=== PATIENT | male | born 1945 | race Caucasian/White ===

== ENCOUNTER 2018-02-06 17:27 | Inpatient (IN) | payer OTHER, MEDICARE ==
[~2018-02-06] VITALS: Ht 193 cm; Wt 99.1 kg
[~2018-02-06 17:27] MED LIST changes: -ACET-24 PO; -AMLO5TAB3 PO; -CANA1TAB5; -CEFT1INJ57 IV; -CLOP1TAB15 PO; -FERR1TAB23; -MELA1TAB3; -OMEG10007 PO; -PANT40TA PO
[2018-02-06 18:46] VITALS: BP 137/84; PULSE 76; TEMP 36.8; O2SAT 96
[2018-02-06 18:50] VITALS: Ht 193 cm; Wt 99.1 kg
[2018-02-06] MEDS ORDERED: NITROGLYCERIN 0.4 MG SL PER TAB CHARGE UT PRN (19:30)
[2018-02-06] MEDS ORDERED: ZOLPIDEM TARTRATE 5 MG TAB PO PRN (19:30)
[2018-02-06] MEDS ORDERED: VANCOMYCIN CONSULT ACTIVE PRN (19:30)
[2018-02-06] MEDS ORDERED: ALUMINUM/MAGNESIUM SUSP 30 ML UDC PO PRN (19:30)
[2018-02-06] MEDS ORDERED: MAGNESIUM HYDROXIDE SUSP 30 ML UDC PO PRN (19:30)
[2018-02-06] MEDS ORDERED: ACETAMINOPHEN/CODEINE 300/30MG TAB PO PRN (19:30)
[2018-02-06] MEDS ORDERED: ACETAMINOPHEN 325 MG TAB PO PRN (19:30)
[2018-02-06] MEDS ORDERED: ONDANSETRON INJ 2 MG/ML 2 ML VIAL IV PRN (19:30)
[2018-02-06] MEDS ORDERED: MELA1TAB3 (19:48)
[2018-02-06] MEDS ORDERED: CANA1TAB5 (19:48)
[2018-02-06] MEDS ORDERED: OMEG10007 PO (19:48)
[2018-02-06] MEDS ORDERED: AMLO5TAB3 PO (19:48)
[2018-02-06] MEDS ORDERED: FERR1TAB23 (19:48)
[2018-02-06] MEDS ORDERED: PANT40TA PO (19:48)
[2018-02-06] MEDS ORDERED: CLOP1TAB15 PO (19:48)
[2018-02-06 20:15] LABS: HEMOGLOBIN 14.4 g/dL (14.0-18.0); MEAN CELL VOLUME 97.5 fL (80-100); MEAN CORPUSCULAR HEMOGLOBIN 32.7 pg (25-34); MEAN CORPUSCULAR HGB CONC 33.5 g/dl (32-36); MEAN PLATELET VOLUME 10.9 fL (7.4-10.4); PLATELET COUNT 202 K/uL (130-400); RED CELL DISTRIBUTION WIDTH CV 12.9 % (11.5-14.5); RED CELL DISTRIBUTION WIDTH SD 46.3 fL (36.4-46.3); WHITE BLOOD COUNT 10.21 K/uL (4.8-10.8)
[2018-02-06] MEDS ORDERED: VANCOMYCIN IV 2,500 MG in SODIUM CHLORIDE 0.9% 500ML 500 ML IV ONE (20:15)
[2018-02-06] MEDS: SODIUM CHLORIDE 0.9% 1000ML 1,000 ML IV SCH (20:25)
[2018-02-06 20:34] LABS: CALCIUM 9.7 mg/dl (8.5-10.1); CREATININE 0.98 mg/dl (0.60-1.40); POTASSIUM 4.2 mmol/L (3.5-5.1)
[2018-02-06] MEDS ORDERED: NURSING VERBAL MED ORDER ONE ×2 (20:45→21:00)
[2018-02-06] MEDS ORDERED: GEMFIBROZIL 600 MG TAB PO SCH (21:00)
[2018-02-06] MEDS ORDERED: GABAPENTIN 300 MG CAP PO SCH (21:00)
[2018-02-06] MEDS ORDERED: GABAPENTIN 100 MG CAP PO SCH (21:00)
[2018-02-06] MEDS ORDERED: RANITIDINE HCL 150 MG TAB PO SCH (21:00)
--- NOTE | 2018-02-06 21:06 | Pharmacy Progress Note ---
Pharmacy Abx Dose Short Note Date of Service Feb 06, 2018. Assessment & Plan Assessment 73 year old male receiving Vancomycin for treatment of cellulitis with possible osteomyelitis. Day # 1 of antimicrobial therapy. Plan Vancomycin * Loading dose: 2500mg (25mg/kg) * Maintenance dose: 1500mg (15mg/kg) IV q 12 hours * Goal trough level: 15 to 20 mcg/mL * Trough level ordered for: 02/08 @7252 Pharmacy will continue to follow and will adjust dose/frequency as necessary. Thank you.
[2018-02-06] MEDS: ROSUVASTATIN CALCIUM 20 MG TAB PO SCH (21:24)
[2018-02-06] MEDS: DOCUSATE SODIUM 100 MG CAP PO SCH (21:24)
--- NOTE | 2018-02-06 21:29 | History and Physical ---
History & Physical Date Feb 06, 2018. Chief Complaint left lower leg pain and knee pain History of Present Illness The patient is a 73 year old male with complaints of lower leg pain and redness that started ~4 days ago. A few days prior to the pain and redness starting, he had hit his left szymanski off of something which in turn caused an abrasion. He states he cleaned the area with peroxide and tried to keep it dry outside of bathing. He started having pain at the lower leg and anterior aspect of the lower leg. He later started having anterior knee pain. He has a hx of a left TKA done by Dr. Luna in 2010. Past Medical/Surgical History Medical Problems: (1) Cellulitis of knee, left (2) Laceration of leg not thigh (3) Septic prepatellar bursitis of left knee Past medical hx: HTN, hypercholesterolemia, PVD with hx of aneurysm of the left leg, DM Past surgical hx: Left TKA Left leg vascular surgery Allergies Coded Allergies: Niacin (Verified Adverse Reaction, Intermediate, SEVERE FLUSHING AND ELEV.BSG, 08/05/09) Lovastatin (Verified Adverse Reaction, Mild, SEVERE GI, 08/05/09) Simvastatin (Verified Adverse Reaction, Mild, SEVERE GI, 08/05/09) No Known Allergies (Verified , `, 06/15/09) Home Medications Scheduled Amlodipine (Norvasc), 5 MG PO DAILY Aspirin Enteric Coated (Ecotrin Or Generic *), 81 MG PO DAILY Atenolol (Tenormin), 100 MG PO QAM Cholecalciferol (Vitamin D), 2,000 INTER.UNIT PO DAILY Clopidogrel (Plavix), 75 MG PO DAILY Gabapentin (Neurontin), 200 MG PO qaftertoon Gabapentin (Neurontin), 300 MG PO HS Gemfibrozil (Lopid), 600 MG PO BID Glimepiride (Amaryl *), 2 MG PO BID Metformin Hcl (Glucophage *), 500 MG PO BID Multivitamin (Multivitamin), 1 TAB PO DAILY Nitroglycerin (Nitrostat), 0.4 MG UT PRN Pantoprazole (Protonix), 40 MG PO DAILY Rosuvastatin Calcium (Crestor *), 40 MG PO DAILY Valsartan (Diovan *), 160 MG PO DAILY Miscellaneous Medications Canagliflozin-Metformin HCl (Invokamet 50-500 mg) Ferrous Sulfate (Iron) Fish Oil ([place]-3), 1 CAP PO Melatonin-Pyridoxine (Melatonin) Physical Examination Skin: warm/dry, + pertinent finding (left knee: healed anterior knee incision. Anterior midshaft tibia with scabbed abrasion. Mild purulent d/c centrally. Left lower extremity cellulitis and edema. ) Eyes: normal inspection ENT: normal ENT inspection Head: normocephalic, atraumatic Neck: supple, no adenopathy, trachea midline Respiratory/Chest: lungs clear, normal breath sounds, no respiratory distress Cardiovascular: regular rate, rhythm Abdomen / GI: normal bowel sounds, non tender Extremities: + pertinent finding (Left knee: erythema at the lower leg. Erythema at the anterior aspect of the knee at the prepatellar bursa. No fluctuance. Mild to moderate knee effusion without erythema at the joint. No pain of the left knee with PROM or AROM of the knee.) Neurologic/Psych: no motor/sensory deficits, alert, oriented x 3 Diagnosis Left lower leg cellulitis left anterior tibia abrasion Hx of left TKA Plan of Treatment Patient admitted to begin IV Vancomycin. Consult ID Consult medicine for medical management and surgical clearance. The anterior tibial wound was cultured at the [facility] office and the patient brought the culture to the [facility] lab. NPO after midnight for possible I & D of the anterior knee, possible I & D knee with poly exchange.
[2018-02-06 22:58] VITALS: BP 149/80; PULSE 75; TEMP 37.2; O2SAT 94
[2018-02-07] VITALS (7 sets, daily range): BP systolic 117–135; BP diastolic 63–75; PULSE 62–67; TEMP 36.6–37.2; O2SAT 91–99
[2018-02-07] MEDS: VANCOMYCIN IV 1,500 MG in SODIUM CHLORIDE 0.9% 500ML 500 ML IV SCH ×2 (05:39→18:54)
[2018-02-07 07:06] LABS: CREATININE 0.74 mg/dl (0.60-1.40)
[2018-02-07] MEDS ORDERED: GLIMEPIRIDE 2 MG TAB PO SCH (08:30)
[2018-02-07] MEDS ORDERED: METFORMIN HCL 500 MG TAB PO SCH (08:30)
[2018-02-07] MEDS ORDERED: CARBOHYDRATES FOR HYPOGLYCEMIA PO PRN (08:45)
[2018-02-07] MEDS ORDERED: DEXTROSE 50% 50 ML SYR IV PRN (08:45)
[2018-02-07] MEDS ORDERED: GLUCOSE 10 TABS/TUBE PO PRN (08:45)
[2018-02-07] MEDS ORDERED: GLUCOSE 40% GEL 15 GM TUBE PO PRN (08:45)
[2018-02-07] MEDS ORDERED: GLUCAGON FOR INJ 1 MG VIAL IM PRN (08:45)
[2018-02-07] MEDS: VALSARTAN 80 MG TAB PO SCH (08:52)
[2018-02-07] MEDS: DOCUSATE SODIUM 100 MG CAP PO SCH ×2 (08:52→21:12)
[2018-02-07] MEDS: GEMFIBROZIL 600 MG TAB PO SCH ×2 (08:52→16:23)
[2018-02-07] MEDS: MULTIVITAMIN TAB PO SCH (08:53)
[2018-02-07] MEDS: ASCORBIC ACID 500 MG TAB PO SCH (08:53)
[2018-02-07] MEDS: PANTOprazole SOD 40 MG TAB PO SCH (08:53)
[2018-02-07] MEDS: CHOLECALCIFEROL 1000 INTER.UNIT TAB PO SCH (08:54)
--- NOTE | 2018-02-07 08:56 | Orthopedic Progress Note ---
Orthopedic Progress Note Date of Service Feb 07, 2018. Subjective Reports: feeling well, complaints (Left knee pain), Denies: chest pain, SOB, nausea / vomiting, light headedness, calf pain Additional Notes: Pt is sitting in his chair this AM. Continuing to have pain in the anterior portion of the knee. Denies deep knee pain. States that ambulating WBAT makes it feel better. Objective calves soft nontender, N/V intact, A&O x3, toes mobile Left knee with noted erythema. Prepatellar area with swelling/induration. Very painful on palpation of this area. I cannot appreciate a true pocket of fluid but the prepatellar bursa area is swollen and boggy to palpation. Erythema travels distally to the ankle. Denies ankle pain at this time. He has an abrasion/scab in the lower leg where he hit it on the corner of a piece of lumber. ROM of the knee to 95 degrees before he has to stop due to pain in the prepatellar area. No drainage noted. Date Time Temp Pulse Resp B/P (MAP) Pulse Ox O2 Delivery O2 Flow Rate FiO2 02/07/18 07:30 36.7 67 17 132/74 (93) 94 Room Air 02/06/18 23:25 Room Air 02/06/18 22:58 37.2 75 18 149/80 (103) 94 Room Air 02/06/18 18:50 Room Air 02/06/18 18:46 36.8 76 18 137/84 (101) 96 Room Air Laboratory Results 24 Hours: Test 02/06/18 19:54 Hematocrit 43.0 % Hemoglobin 14.4 g/dL Additional Notes: --------- RUN DATE: 02/07/18 [facility] PAGE 1 RUN TIME: 726 Specimen Inquiry PATIENT: ALEN FAGAN LOC: [facility] U # : [id number] AGE/SX: 73/M ROOM: REG : 02/06/[address]: Kraig Hawkins PA- : 1945 BED: DIS : STATUS: REG CLI TLOC: SPEC #: [id number] JE: 02/06/18 STATUS: RES REQ #: [id number] RECD: 02/06/[address]: Kraig Hawkins PA-C SOURCE: DRAIN-DEEP ENTR: 02/06/[address]: Soren Ortega D.O. SPDESC: LEG LL ORDERED: AER/KAIA CULTSMR COMMENTS: SOURCE IS ANTERIOR LEFT TIBIA DRAINAGE Procedure Result Verified Site GRAM STAIN Final 02/07/18 RESULT RARE GRAM POSITIVE COCCI NO WBCs SEEN OR AER/KAIA CULT Results Pending Assessment & Plan Assessment: Septic Prepatellar Bursitis - above noted gram stain from aspiration done in office last night. h/o HTN, hypercholesterolemia, PVD with hx of aneurysm of the left leg, DM h/o aspiration pneumonia on last hospital stay in [place] resulting in sepsis and a 6 week hospital stay Plan: Currently on Vancomycin Plan for OR today for I&D above septic bursitis. Medical Management per [facility] Hospitalists ID consult placed.
[2018-02-07] MEDS ORDERED: ROSUVASTATIN CALCIUM 20 MG TAB PO SCH (09:00)
[2018-02-07] MEDS ORDERED: LIDOCAINE HCL 2% 2 ML VIAL (20MG/ML) ONE (10:21)
[2018-02-07] MEDS ORDERED: PROPOFOL IV EMULSION 10 MG/ML 20 ML VIAL ONE (10:21)
[2018-02-07] MEDS ORDERED: FENTANYL CITRATE INJ 50 MCG/1 ML 2 ML VIAL ONE ×3 (10:21→14:03)
--- NOTE | 2018-02-07 10:35 | INFECT. DISEASE CONSULTATION ---
DATE OF CONSULTATION: 02/07/2018 HISTORY OF PRESENT ILLNESS: This is a 73-year-old gentleman who was admitted on the after he had worsening left lower pain, swelling and erythema. He was outside working on his deck and did suffer a scrape to his left anterior szymanski from lumber a few days prior to admission. He was cleaning this at home with peroxide, but continued to develop worsening erythema and pain. He then noticed he had significantly decreased range of motion and presented to the Emergency Room. He did have fluid aspirated and the Gram stain is growing gram-positive cocci. He was placed on vancomycin and evaluated by orthopedic surgery. He is due to go to the OR later today. He has been afebrile since admission. He is tolerating vancomycin without difficulty. He does not have leukocytosis. He does have a history of a left total knee replacement in 2010. He has had no prior complications. On my examination, he denies any chest pain, cough, shortness of breath, nausea, vomiting, diarrhea or abdominal pain. REVIEW OF SYSTEMS: His remaining review of systems is reviewed and unremarkable. PAST MEDICAL HISTORY: Significant for hypertension, high cholesterol, history of peripheral vascular disease, aneurysm of the left lower extremity and type 2 diabetes. PAST SURGICAL HISTORY: Significant for TKA in 2010, vascular surgery. He also had a hernia repair in 2011, which was complicated by aspiration pneumonia intraoperatively and prolonged hospital stay due to severe sepsis. ALLERGIES: NIACIN, LOVASTATIN, SIMVASTATIN. FAMILY HISTORY: Noncontributory. SOCIAL HISTORY: Noncontributory. MEDICATIONS: Insulin, Protonix, vitamin C, atenolol, vitamin D, multivitamin, Diovan, gemfibrozil, vancomycin, Colace, Crestor, Tylenol, Benadryl, Ambien, Zofran, milk of magnesia. PHYSICAL EXAMINATION: VITAL SIGNS: He is afebrile, pulse 67, respiratory rate 17, blood pressure 132/74, oxygen saturation is 94% on room air. GENERAL: He is awake, alert and oriented x3. He is in no acute distress. HEENT: Mucous membranes are moist. Extraocular muscles are intact. HEART: Regular. LUNGS: Clear bilaterally. ABDOMEN: Soft and nondistended. EXTREMITIES: There is no lower extremity edema. Examination of the left leg reveals significant erythema over the lower extremity with warmth and minimal tenderness. There is no purulent drainage from the wound. LABORATORY STUDIES: CBC on the 9th, white blood cell count 10.2, hemoglobin 14.4. Chemistry panel: Sodium 139, potassium 4.2, chloride 106, bicarb 24, BUN 24, creatinine 0.9. Glucose 114, was 203 yesterday. Aspiration of the knee shows gram-positive cocci. Additional cultures are pending. 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 He will remain on vancomycin pending additional culture data. He likely will need a 6-week course of IV antibiotics post-discharge from the hospital. Thank you for this consultation.
--- NOTE | 2018-02-07 11:03 | Medical Consult ---
Consultation Date of Consultation: Feb 07, 2018. Attending Physician: Ameya Luna D.O. Reason for Consultation: medical management History of Present Illness Mr. Doyle began having pain in his left leg 4 days ago after hitting his szymanski with resulting abrasion. Pain, erythema and edema developed from knee to ankle anteriorly. He did have some chills last night but no fever. He has a medical history of DMII, ID 20 years ago, CABG, aneurysm in his left thigh, and extended ICU stay in [place] with subsequent dialysis for some months after in October of 2016 for aspiration pneumonia following a hernia surgery. He has been discharged from nephrology care at this point. ROS Constitutional: no aches, sweats or fever Respiratory: no sob,cough, sputum, or wheezing Cardiac: no chest pain, palpitations, edema, orthopnea or lightheadedness GI: no abdominal pain, nausea, vomiting, diarrhea or constipation : no dysuria or hesitancy Extremities: see HPI Skin: no rash All other systems reviewed and negative Family History non contributory Social History Smoking Status: Former Smoker (quit in his 40s) Smokeless Tobacco Use: No Alcohol Use: 1-2 drinks per day beer or wine Drug Use: none Marital Status: Housing Status: lives with significant other Occupation Status: retired Allergies Coded Allergies: Niacin (Verified Adverse Reaction, Intermediate, SEVERE FLUSHING AND ELEV.BSG, 08/05/09) Lovastatin (Verified Adverse Reaction, Mild, SEVERE GI, 08/05/09) Simvastatin (Verified Adverse Reaction, Mild, SEVERE GI, 08/05/09) No Known Allergies (Verified , `, 06/15/09) Home Medications Active Reported [place]-3 (Fish Oil) 1 Ea Cap 1 Cap PO Iron (Ferrous Sulfate) 325 Mg Tab Melatonin (Melatonin-Pyridoxine) 1 Tab Tab Protonix (Pantoprazole Sodium) 40 Mg Tab 40 Mg PO DAILY Invokamet 50-500 mg (Canagliflozin-Metformin HCl) 1 Tab Tab Plavix (Clopidogrel Bisulfate) 75 Mg Tab 75 Mg PO DAILY Norvasc (Amlodipine Besylate) 5 Mg Tab 5 Mg PO DAILY Vitamin D (Cholecalciferol) 1,000 Inter.unit Tab 2,000 Inter.unit PO DAILY Neurontin (Gabapentin) 300 Mg Cap 300 Mg PO HS Neurontin (Gabapentin) 100 Mg Cap 200 Mg PO QAFTERTOON Crestor * (Rosuvastatin Calcium) 40 Mg Tab 40 Mg PO DAILY Amaryl * (Glimepiride) 2 Mg Tab 2 Mg PO BID Glucophage * (Metformin HCl) 500 Mg Tab 500 Mg PO BID Multivitamin (Multivitamins) Tab 1 Tab PO DAILY Ecotrin Or Generic * (Aspirin) 81 Mg Ectab 81 Mg PO DAILY Nitrostat (Nitroglycerin) 0.4 Mg Tab 0.4 Mg UT PRN Diovan * (Valsartan) 80 Mg Cap 160 Mg PO DAILY Lopid (Gemfibrozil) 600 Mg Tab 600 Mg PO BID Tenormin (Atenolol) 100 Mg Tab 100 Mg PO QAM Current Inpatient Medications Current Inpatient Medications Medications (Trade) Dose Ordered Sig/Farzana Route Start Time Stop Time Status Last Admin Dose Admin Acetaminophen/ Codeine Phosphate (Tylenol w/ Codeine #3 Tab) `1-2 TABS FOR PAIN `1 TAB... Q4 PRN PO 02/06/18 19:30 03/08/18 19:29 02/06/18 21:23 1 TAB Acetaminophen (Tylenol Tab) 650 mg Q6H PRN PO 02/06/18 19:30 03/08/18 19:29 Diphenhydramine HCl (Benadryl Cap) 25 mg Q8 PRN PO 02/06/18 19:30 03/08/18 19:29 Zolpidem Tartrate (Ambien Tab) 5 mg HSZ PRN PO 02/06/18 19:30 03/08/18 19:29 Ondansetron HCl (Zofran Inj) 4 mg Q6H PRN IV 02/06/18 19:30 03/08/18 19:29 Al Hydroxide/Mg Hydroxide (Maalox Susp) 30 ml Q6H PRN PO 02/06/18 19:30 03/08/18 19:29 Docusate Sodium (coLACE CAP) 100 mg BID PO 02/06/18 21:00 03/08/18 20:59 02/07/18 08:52 100 MG Pantoprazole Sodium (Protonix Tab) 40 mg QAM PO 02/07/18 09:00 02/10/18 09:01 02/07/18 08:53 40 MG Magnesium Hydroxide (Milk Of Magnesia Susp) 30 ml Q6H PRN PO 02/06/18 19:30 03/08/18 19:29 Sodium Chloride 1,000 ml @ 75 mls/hr [id number] IV 02/06/18 20:00 03/08/18 19:59 02/06/18 20:25 75 MLS/HR Vancomycin HCl 1500 mg/Sodium Chloride 530 ml @ 200 mls/hr Q12H IV 02/07/18 06:00 02/16/18 19:59 02/07/18 05:39 200 MLS/HR Vancomycin HCl (Consult) 1 ea UD PRN N/A 02/06/18 19:30 03/08/18 19:29 Ascorbic Acid (Vitamin C Tab) 500 mg DAILY PO 02/07/18 09:00 03/09/18 08:59 02/07/18 08:53 500 MG Atenolol (Tenormin Tab) 100 mg QAM PO 02/07/18 09:00 03/09/18 08:59 02/07/18 08:53 100 MG Cholecalciferol (Vitamin D Tab) 2,000 inter.unit DAILY PO 02/07/18 09:00 03/09/18 08:59 02/07/18 08:54 2,000 INTER.UNIT Glimepiride (Amaryl Tab) 2 mg BIDM PO 02/07/18 08:30 03/09/18 08:29 Future Hold Multivitamins (Multivitamin Tab) 1 tab DAILY PO 02/07/18 09:00 03/09/18 08:59 02/07/18 08:53 1 TAB Nitroglycerin (Nitrostat Tab) 0.4 mg UD PRN UT 02/06/18 19:30 03/08/18 19:29 Valsartan (Diovan Tab) 80 mg DAILY PO 02/07/18 09:00 03/09/18 08:59 02/07/18 08:52 80 MG Gemfibrozil (Lopid Tab) 600 mg BID@0800,1700 PO 02/07/18 08:00 03/09/18 07:59 02/07/18 08:52 600 MG Rosuvastatin Calcium (Crestor Tab) 40 mg HS PO 02/06/18 21:00 03/08/18 20:59 02/06/18 21:24 40 MG Insulin Aspart (novoLOG ASPART) SLIDING SCALE If C... ACHS SC 02/07/18 12:00 03/09/18 11:59 Glucose (Glucose 40% Gel) 15-30 GRAMS 15 GRAMS... UD PRN PO 02/07/18 08:45 03/09/18 08:44 Glucose (Glucose Chew Tab) 4-8 Tablets 4 Tabl... UD PRN PO 02/07/18 08:45 03/09/18 08:44 Dextrose (Dextrose 50% 50ML Syringe) 25-50ML 25ML FOR ... UD PRN IV 02/07/18 08:45 03/09/18 08:44 Glucagon (Glucagon Inj) 1 mg UD PRN IM 02/07/18 08:45 03/09/18 08:44 Carbohydrates (Carbohydrates For Hypoglycemia) 15-30 GRAMS 15 grams if BSG 54-69... UD PRN PO 02/07/18 08:45 03/09/18 08:44 Physical Exam Date Time Temp Pulse Resp B/P (MAP) Pulse Ox O2 Delivery O2 Flow Rate FiO2 02/07/18 08:05 Room Air 02/07/18 07:30 36.7 67 17 132/74 (93) 94 Room Air 02/06/18 23:25 Room Air 02/06/18 22:58 37.2 75 18 149/80 (103) 94 Room Air 02/06/18 18:50 Room Air 02/06/18 18:46 36.8 76 18 137/84 (101) 96 Room Air General: no distress Eyes: normal inspection, PERLL Respiratory: chest non tender, clear to auscultation, normal breath sounds, no respiratory distress, no accessory muscle use Cardiac: regular rate and rhythm, no rub or gallop, no murmur, no edema, no jvd GI/: active bowel sounds, no abd pain or tenderness, soft, non distended Extremities: left knee erythematous, very painful to even light palpation, erythema extending down szymanski Neuro/Psych: alert and oriented x 3, normal mood and affect Skin: normal color, dry, erythema left knee to szymanski with abrasion over szymanski Laboratory Results Last 24 Hours Test 02/06/18 19:54 02/07/18 06:15 02/07/18 07:40 White Blood Count 10.21 K/uL Red Blood Count 4.41 M/uL Hemoglobin 14.4 g/dL Hematocrit 43.0 % Mean Corpuscular Volume 97.5 fL Mean Corpuscular Hemoglobin 32.7 pg Mean Corpuscular Hemoglobin Concent 33.5 g/dl RDW Standard Deviation 46.3 fL RDW Coefficient of Variation 12.9 % Platelet Count 202 K/uL Mean Platelet Volume 10.9 fL Sodium Level 139 mmol/L Potassium Level 4.2 mmol/L Chloride Level 106 mmol/L Carbon Dioxide Level 24 mmol/L Anion Gap 9.0 mmol/L Blood Urea Nitrogen 24 mg/dl Creatinine 0.98 mg/dl 0.74 mg/dl Est Creatinine Clear Calc Drug Dose 83.6 ml/min 110.7 ml/min Estimated GFR () 88.9 106.8 Estimated GFR (Non- 76.7 92.2 BUN/Creatinine Ratio 24.5 Random Glucose 203 mg/dl Calcium Level 9.7 mg/dl Bedside Glucose 114 mg/dl Assessment & Plan Mr. Doyle is a 73 year old man here for septic prepatellar bursitis Septic Prepatellar Bursitis - cbc am, no leukocytosis - ID consulted - will need IV vanco for 6 weeks - plan for I&D in OR today - patient has good exercise tolerance, able to walk up a flight of stairs without difficulty, no history of CHF. He has not had any angina symptoms in a number of years. 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 EKG shows RBBB and chest xray. RCRI is 6.6%. - Bowel regimen, DVT prophylaxis, pain control, PT/OT per primary team DMII - bsgs ac & hs, ss - hold home glimepiride for now CAD, htn - continue atenolol, valsartan, Crestor - prp am [employer] Physician Supervision Note: I discussed with Aneta Foster NP and agree with findings and plan as documented in the note. Any exceptions or clarifications are listed here: None Documented By: Trent Zuniga
--- NOTE | 2018-02-07 11:29 | Progress Note ---
Progress Note Date of Service Feb 07, 2018. Progress Note ID Consult Dictated #[id number] A/P: 1. Infected TKA - gpc on aspiration -Continue vanco for now, follow OR findings, cultures -Will need min 6 weeks IV abx, weekly cbc, cmp, esr -Final abx when additional cultures available -thank you
--- NOTE | 2018-02-07 11:32 | History & Physical Bridge Note ---
H&P Re-Evaluation Bridge Note: I have examined the patient, reviewed the History & Physical and in the interval since the performance of the History & Physical I have noted the following changes of clinical significance: No changes noted
--- NOTE | 2018-02-07 11:41 | DIAGNOSTIC IMAGING REPORT ---
CHEST ONE VIEW PORTABLE CLINICAL HISTORY: preop COMPARISON STUDY: No previous studies for comparison. FINDINGS: The bones soft tissues and hemidiaphragms are normal. The cardiomediastinal silhouette is normal. The lungs are clear. The pulmonary vasculature is normal. IMPRESSION: Negative chest. The above report was generated using voice recognition software. It may contain grammatical, syntax or spelling errors. Electronically signed by: Eliseo Nugent M.D. 02/07/2018 11:40 AM Dictated Date/Time: 02/07/2018 11:39 AM
[2018-02-07] MEDS ORDERED: NURSING VERBAL MED ORDER ONE (11:45)
[2018-02-07] MEDS ORDERED: CEFAZOLIN SOD 2000MG/15 ML IV PUSH ONE (11:48)
[2018-02-07] MEDS ORDERED: BACITRACIN 50000 UNIT VIAL ONE (11:55)
[2018-02-07] MEDS ORDERED: CEFAZOLIN 2000MG IV PUSH 15 ML IV SCH (12:00)
[2018-02-07] MEDS: INSULIN ASPART 100 UNITS/ML 3 ML PEN SC SCH ×3 (12:00→21:00)
[2018-02-07] MEDS ORDERED: SUCCINYLCHOLINE CHLORIDE 20 MG/ML 10 ML VIAL IV ONE (12:17)
[2018-02-07] MEDS ORDERED: EpHEDrine SULFATE INJ 50 MG/ML AMP IV PRN (12:45)
[2018-02-07] MEDS ORDERED: HYDROmorphone INJ 1 MG/ML SYR IV PRN (12:45)
[2018-02-07] MEDS ORDERED: ATROPINE SULFATE 0.1 MG/ML 5ML SYR IV PRN (12:45)
[2018-02-07] MEDS ORDERED: ONDANSETRON INJ 2 MG/ML 2 ML VIAL IV PRN (12:45)
[2018-02-07] MEDS ORDERED: MoRPHine SULFATE 2 MG/ML CARP IV PRN (13:45)
[2018-02-07] MEDS ORDERED: OXYCODONE HCL IR 5 MG TAB (IMMEDIATE RELEASE) PO PRN (13:45)
[2018-02-07] MEDS ORDERED: ONDANSETRON INJ 2 MG/ML 2 ML VIAL ONE (13:54)
--- NOTE | 2018-02-07 14:11 | [facility] Operative Report ---
Operative Report Operative Date Feb 07, 2018. Pre-Operative Diagnosis Left Leg Wound, Septic Pre-Patellar Bursitis Post-Operative Diagnosis same as preop Procedure(s) Performed Left Knee Incision and Drainage, Incision and Drainage Pre-Patellar Bursa Surgeon Dr. Clarence Horton Record Maker Surgeon(s) None Estimated Blood Loss 5ML Findings The left leg wound was clean after removing the scab. No signs of purulent drainage from the left leg wound. The prepatellar bursa was infected but there was no tracking deep to the joint. Specimens Microbiology #2; left knee pre patellar bursa - gram stain, anaerobic, aerobic, routine culture and sensitivity Drains 1 SEVERINO drain Anesthesia Type General Complication(s) none Disposition Recovery Room / PACU Indications Patient is a 73-year-old male who had sustained abrasion to the anterior distal aspect of the left tibia on Saturday. Starting on he started having increasing pain and redness over the region of the prepatellar bursa. He was seen in the office on Saturday and diagnosed with a septic prepatellar bursitis. He did not really have any pain in the knee itself. He is able to range the knee to about 90 or 95 before having any pain and this was located more because of tightness he complained of the anterior aspect of the knee in the region of the prepatellar bursa. He was admitted to the hospital placed on IV antibiotics. He presents for irrigation debridement. Description of Procedure Risks benefits and alternatives of surgery including but not limited to infection DVT pain stiffness need for surgery damage to blood vessels damage to nerves or risks of anesthesia, possible need for polyethylene exchange and irrigation debridement deeply into the knee. Were discussed with the patient and she wished to proceed. Patient was identified in the laterality was confirmed and marked. A well-padded tourniquet was applied and then the limb was prepped and draped in standard manner with ChloraPrep. The limb was exsanguinated and the tourniquet was inflated. The previous incision was intact. There was an abrasion type wound distally over the anterior distal aspect of the tibia measured about 1 cm diameter. I remove the scab that was in this region. There is no purulent material is no drainage from underneath of the scab. There was significant cellulitis tracking up the leg. The prepatellar bursa region was fluctuant and erythematous. I reopened a portion of the anterior incision about 2 cm in length and encountered bloody purulent material. This fluid as well as some tissue from the region was sent for culture. I thoroughly inspected the region both visually as well as with palpation and there is no tracking of the infection deeply into the knee. The region was then debrided a combination of both sharply as well as bluntly debridement with a rongeur and curette as well as a knife blade. This was to the region subcutaneous tissue. Once it was thoroughly debrided I irrigated the region with a total of 6 L of saline with bacitracin. I placed a SEVERINO drain into the prepatellar bursa through a stab incision distally. I then closed the subcutaneous tissue with interrupted 3-0 Monocryl suture and the skin with horizontal mattress 3-0 nylon. Sterile dressings applied and the tourniquet was released. All needle and sponge counts were correct at the end of the procedure patient was transferred to the PACU in stable condition without apparent complication. I attest to the content of the Intraoperative Record and any orders documented therein. Any exceptions are noted below.
[2018-02-07] MEDS: FENTANYL CITRATE INJ 50 MCG/1 ML 2 ML VIAL IV PRN ×4 (14:15→14:39)
--- NOTE | 2018-02-07 15:16 | Anesthesiology Progress Note ---
Anesthesia Post Op Note Date & Time Feb 07, 2018 at 15:15 Vital Signs Pain Intensity: 3 Vital Signs Past 12 Hours Date Time Temp Pulse Resp B/P (MAP) Pulse Ox O2 Delivery O2 Flow Rate FiO2 02/07/18 14:55 36.6 64 17 136/49 93 Nasal Cannula 2 02/07/18 14:45 64 13 141/68 93 Nasal Cannula 2 02/07/18 14:35 66 13 143/61 94 Nasal Cannula 2 02/07/18 14:25 65 12 142/58 98 Oxymask 10 02/07/18 14:15 70 17 141/63 97 Oxymask 10 02/07/18 14:06 36.0 72 12 134/63 99 Oxymask 10 02/07/18 08:05 Room Air 02/07/18 07:30 36.7 67 17 132/74 (93) 94 Room Air Notes Mental Status: alert / awake / arousable, participated in evaluation Pt Amnestic to Procedure: Yes Nausea / Vomiting: adequately controlled Pain: adequately controlled Airway Patency, RR, SpO2: stable & adequate BP & HR: stable & adequate Hydration State: stable & adequate Anesthetic Complications: no major complications apparent
[2018-02-07] MEDS: SODIUM CHLORIDE 0.9% 1000ML 1,000 ML IV SCH (15:22)
[2018-02-07] MEDS: ROSUVASTATIN CALCIUM 20 MG TAB PO SCH (21:13)
[2018-02-08 03:33] VITALS: BP 134/76; PULSE 82; TEMP 37.4; O2SAT 96
[2018-02-08] MEDS: VANCOMYCIN IV 1,500 MG in SODIUM CHLORIDE 0.9% 500ML 500 ML IV SCH ×2 (05:25→17:38)
[2018-02-08 06:07] LABS: HEMATOCRIT 36.2 % (42-52); HEMOGLOBIN 12.2 g/dL (14.0-18.0); MEAN CELL VOLUME 98.6 fL (80-100); MEAN CORPUSCULAR HEMOGLOBIN 33.2 pg (25-34); MEAN CORPUSCULAR HGB CONC 33.7 g/dl (32-36); MEAN PLATELET VOLUME 10.7 fL (7.4-10.4); PLATELET COUNT 148 K/uL (130-400); RED CELL DISTRIBUTION WIDTH SD 47.1 fL (36.4-46.3); WHITE BLOOD COUNT 7.59 K/uL (4.8-10.8)
[2018-02-08 06:37] LABS: CALCIUM 8.7 mg/dl (8.5-10.1); CREATININE 0.85 mg/dl (0.60-1.40); POTASSIUM 4.3 mmol/L (3.5-5.1)
[2018-02-08 07:30] VITALS: BP 138/82; PULSE 66; TEMP 36.7; O2SAT 95
[2018-02-08] MEDS: INSULIN ASPART 100 UNITS/ML 3 ML PEN SC SCH ×4 (08:00→21:00)
--- NOTE | 2018-02-08 08:22 | Orthopedic Progress Note ---
Orthopedic Progress Note Date of Service Feb 08, 2018. Subjective Post OP Day: 1 Reports: feeling well, Denies: chest pain, SOB, nausea / vomiting, light headedness, calf pain Objective calves soft nontender, N/V intact, capillary refill less than 2 sec., dressing C /D/I, A&O x3, toes mobile, hemovac drainage (SEVERINO- 15 CC) Date Time Temp Pulse Resp B/P (MAP) Pulse Ox O2 Delivery O2 Flow Rate FiO2 02/08/18 07:30 36.7 66 22 138/82 (100) 95 Room Air 02/08/18 03:33 37.4 82 18 134/76 (95) 96 Room Air 02/07/18 23:15 Room Air 02/07/18 23:01 37.2 66 18 126/63 (84) 91 Room Air 02/07/18 19:06 37.1 63 18 117/73 (88) 93 Room Air 02/07/18 17:15 37.2 66 18 118/66 (83) 93 Room Air 02/07/18 16:16 36.7 62 16 135/75 (95) 98 Nasal Cannula 2.0 02/07/18 15:57 36.6 62 16 125/64 (84) 94 Nasal Cannula 2.0 02/07/18 15:15 36.9 66 18 134/75 (94) 99 Nasal Cannula 3.0 02/07/18 15:15 Nasal Cannula 3.0 02/07/18 15:15 99 Nasal Cannula 3.0 02/07/18 14:55 36.6 64 17 136/49 93 Nasal Cannula 2 02/07/18 14:45 64 13 141/68 93 Nasal Cannula 2 02/07/18 14:35 66 13 143/61 94 Nasal Cannula 2 02/07/18 14:25 65 12 142/58 98 Oxymask 10 02/07/18 14:15 70 17 141/63 97 Oxymask 10 02/07/18 14:06 36.0 72 12 134/63 99 Oxymask 10 Laboratory Results 24 Hours: Test 02/08/18 05:31 Hematocrit 36.2 % Hemoglobin 12.2 g/dL Assessment & Plan Assessment: Septic Prepatellar Bursitis - above noted gram stain from aspiration done in office last night. 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 WILL FOLLOW. - ID CONSULTED. INFECTION NOT DEEP INTO JOINT. WILL DEFER TO THEM FOR FINAL ABX DECISION.(IV VS PO PENDING C&S) Medical Management per [facility] [place] Hospitalists ID consult placed. PAIN MANAGEMENT PT/OT DC DRESSING/DRAIN IN AM.
--- NOTE | 2018-02-08 08:48 | Progress Note ---
Subjective Date of Service: Feb 08, 2018. Subjective culture with MSSA, OR cultures pending, per ortho no infection found deep, all superficial. afebrile tolerating abx. Objective Vital Signs Date Time Temp Pulse Resp B/P (MAP) Pulse Ox O2 Delivery O2 Flow Rate FiO2 02/08/18 07:30 36.7 66 22 138/82 (100) 95 Room Air 02/08/18 03:33 37.4 82 18 134/76 (95) 96 Room Air 02/07/18 23:15 Room Air 02/07/18 23:01 37.2 66 18 126/63 (84) 91 Room Air 02/07/18 19:06 37.1 63 18 117/73 (88) 93 Room Air 02/07/18 17:15 37.2 66 18 118/66 (83) 93 Room Air 02/07/18 16:16 36.7 62 16 135/75 (95) 98 Nasal Cannula 2.0 02/07/18 15:57 36.6 62 16 125/64 (84) 94 Nasal Cannula 2.0 02/07/18 15:15 36.9 66 18 134/75 (94) 99 Nasal Cannula 3.0 02/07/18 15:15 Nasal Cannula 3.0 02/07/18 15:15 99 Nasal Cannula 3.0 02/07/18 14:55 36.6 64 17 136/49 93 Nasal Cannula 2 02/07/18 14:45 64 13 141/68 93 Nasal Cannula 2 02/07/18 14:35 66 13 143/61 94 Nasal Cannula 2 02/07/18 14:25 65 12 142/58 98 Oxymask 10 02/07/18 14:15 70 17 141/63 97 Oxymask 10 02/07/18 14:06 36.0 72 12 134/63 99 Oxymask 10 Laboratory Results Item Value Date Time Gram Stain - Final Resulted 02/06/18 1630 Drainage-Deep Leg Lower Left Last 24 Hours Test 02/07/18 14:14 02/07/18 16:13 02/07/18 20:08 02/08/18 05:31 Bedside Glucose 81 mg/dl 73 mg/dl 119 mg/dl White Blood Count 7.59 K/uL Red Blood Count 3.67 M/uL Hemoglobin 12.2 g/dL Hematocrit 36.2 % Mean Corpuscular Volume 98.6 fL Mean Corpuscular Hemoglobin 33.2 pg Mean Corpuscular Hemoglobin Concent 33.7 g/dl RDW Standard Deviation 47.1 fL RDW Coefficient of Variation 13.0 % Platelet Count 148 K/uL Mean Platelet Volume 10.7 fL Sodium Level 137 mmol/L Potassium Level 4.3 mmol/L Chloride Level 109 mmol/L Carbon Dioxide Level 22 mmol/L Anion Gap 6.0 mmol/L Blood Urea Nitrogen 16 mg/dl Creatinine 0.85 mg/dl Est Creatinine Clear Calc Drug Dose 96.4 ml/min Estimated GFR () 100.9 Estimated GFR (Non- 87.1 BUN/Creatinine Ratio 18.9 Random Glucose 114 mg/dl Calcium Level 8.7 mg/dl Test 02/08/18 08:01 Bedside Glucose 106 mg/dl Assessment and Plan (1) Cellulitis of knee, left Assessment & Plan: If OR cultures negative, would suggest change abx to keflex 500mg po tid x 21 days. can follow with ID post d/c. If OR cultures also with MSSA will likely require IV abx with rocephin.
[2018-02-08] MEDS: ASCORBIC ACID 500 MG TAB PO SCH (09:02)
[2018-02-08] MEDS: CHOLECALCIFEROL 1000 INTER.UNIT TAB PO SCH (09:02)
[2018-02-08] MEDS: DOCUSATE SODIUM 100 MG CAP PO SCH ×2 (09:02→20:57)
[2018-02-08] MEDS: VALSARTAN 80 MG TAB PO SCH (09:02)
[2018-02-08] MEDS: PANTOprazole SOD 40 MG TAB PO SCH (09:02)
[2018-02-08] MEDS: MULTIVITAMIN TAB PO SCH (09:02)
[2018-02-08] MEDS: GEMFIBROZIL 600 MG TAB PO SCH ×2 (09:03→16:48)
--- NOTE | 2018-02-08 09:46 | Hospitalist Progress Note ---
Hospitalist Progress Note Date of Service Feb 08, 2018. (Aneta Foster ., KIZZY) Subjective Pt evaluation today including: conversation w/ patient, physical exam, chart review, lab review, review of inpatient medication list Voiding: no voiding problems Mr. Saini pain is greatly relieved since surgery. He has no complaints this morning ROS Constitutional: no chills, aches, sweats or fever Respiratory: no sob,cough, sputum, or wheezing Cardiac: no chest pain, palpitations, edema, orthopnea or lightheadedness GI: no abdominal pain, nausea, vomiting, diarrhea or constipation : no dysuria or hesitancy Extremities: no joint pain or weakness Skin: no rash All other systems reviewed and negative (Aneta Foster CRNP) Medications Medications Administered Medications (Trade) Dose Ordered Sig/Farzana Route Start Time Stop Time Status Last Admin Dose Admin Acetaminophen/ Codeine Phosphate (Tylenol w/ Codeine #3 Tab) `1-2 TABS FOR PAIN `1 TAB... Q4 PRN PO 02/06/18 19:30 02/07/18 13:41 DC 02/06/18 21:23 1 TAB Acetaminophen (Tylenol Tab) 650 mg Q6H PRN PO 02/06/18 19:30 03/08/18 19:29 02/07/18 15:31 650 MG Docusate Sodium (coLACE CAP) 100 mg BID PO 02/06/18 21:00 03/08/18 20:59 02/08/18 09:02 100 MG Pantoprazole Sodium (Protonix Tab) 40 mg QAM PO 02/07/18 09:00 02/10/18 09:01 02/08/18 09:02 40 MG Sodium Chloride 1,000 ml @ 75 mls/hr [id number] IV 02/06/18 20:00 03/08/18 19:59 02/07/18 15:22 75 MLS/HR Vancomycin HCl 1500 mg/Sodium Chloride 530 ml @ 200 mls/hr Q12H IV 02/07/18 06:00 02/16/18 19:59 02/08/18 05:25 200 MLS/HR Ascorbic Acid (Vitamin C Tab) 500 mg DAILY PO 02/07/18 09:00 03/09/18 08:59 02/08/18 09:02 500 MG Atenolol (Tenormin Tab) 100 mg QAM PO 02/07/18 09:00 03/09/18 08:59 02/08/18 09:03 100 MG Cholecalciferol (Vitamin D Tab) 2,000 inter.unit DAILY PO 02/07/18 09:00 03/09/18 08:59 02/08/18 09:02 2,000 INTER.UNIT Multivitamins (Multivitamin Tab) 1 tab DAILY PO 02/07/18 09:00 03/09/18 08:59 02/08/18 09:02 1 TAB Valsartan (Diovan Tab) 80 mg DAILY PO 02/07/18 09:00 03/09/18 08:59 02/08/18 09:02 80 MG Vancomycin HCl 2500 mg/Sodium Chloride 550 ml @ 200 mls/hr TODAY@2014 ONCE IV 02/06/18 20:15 02/06/18 22:59 DC 02/06/18 20:26 200 MLS/HR Gemfibrozil (Lopid Tab) 600 mg BID@0800,1700 PO 02/07/18 08:00 03/09/18 07:59 02/08/18 09:03 600 MG Rosuvastatin Calcium (Crestor Tab) 40 mg HS PO 02/06/18 21:00 03/08/18 20:59 02/07/18 21:13 40 MG Cefazolin Sodium (Ancef 2000mg Iv Push) 2,000 mg STK-MED ONCE .ROUTE 02/07/18 11:48 02/07/18 11:49 DC 02/07/18 12:54 2,000 MG Bacitracin (Bacitracin Inj) 100,000 units STK-MED ONCE .ROUTE 02/07/18 11:55 02/07/18 11:56 DC 02/07/18 13:45 100,000 UNITS Fentanyl Citrate (Fentanyl Inj) 25 mcg Q5M PRN IV 02/07/18 12:45 02/07/18 17:45 DC 02/07/18 14:39 25 MCG (Aneta Foster CRNP) Objective Vital Signs Date Time Temp Pulse Resp B/P (MAP) Pulse Ox O2 Delivery O2 Flow Rate FiO2 02/08/18 07:55 Room Air 02/08/18 07:30 36.7 66 22 138/82 (100) 95 Room Air 02/08/18 03:33 37.4 82 18 134/76 (95) 96 Room Air 02/07/18 23:15 Room Air 02/07/18 23:01 37.2 66 18 126/63 (84) 91 Room Air 02/07/18 19:06 37.1 63 18 117/73 (88) 93 Room Air 02/07/18 17:15 37.2 66 18 118/66 (83) 93 Room Air 02/07/18 16:16 36.7 62 16 135/75 (95) 98 Nasal Cannula 2.0 02/07/18 15:57 36.6 62 16 125/64 (84) 94 Nasal Cannula 2.0 02/07/18 15:15 36.9 66 18 134/75 (94) 99 Nasal Cannula 3.0 02/07/18 15:15 Nasal Cannula 3.0 02/07/18 15:15 99 Nasal Cannula 3.0 02/07/18 14:55 36.6 64 17 136/49 93 Nasal Cannula 2 02/07/18 14:45 64 13 141/68 93 Nasal Cannula 2 02/07/18 14:35 66 13 143/61 94 Nasal Cannula 2 02/07/18 14:25 65 12 142/58 98 Oxymask 10 02/07/18 14:15 70 17 141/63 97 Oxymask 10 02/07/18 14:06 36.0 72 12 134/63 99 Oxymask 10 (Aneta Foster CRNP) Physical Exam Notes: General: no distress Eyes: normal inspection, PERLL Respiratory: chest non tender, clear to auscultation, normal breath sounds, no respiratory distress, no accessory muscle use Cardiac: regular rate and rhythm, no rub or gallop, systolic murmur, no edema, no jvd, weak pedal pulses bilaterally GI/: active bowel sounds, no abd pain or tenderness, soft, non distended Extremities: normal range of motion, normal strength, non tender Neuro/Psych: alert and oriented x 3, normal mood and affect Skin: normal color, dry (Aneta Foster CRNP) Laboratory Results Last 24 Hours Test 02/07/18 14:14 02/07/18 16:13 02/07/18 20:08 02/08/18 05:31 Bedside Glucose 81 mg/dl 73 mg/dl 119 mg/dl White Blood Count 7.59 K/uL Red Blood Count 3.67 M/uL Hemoglobin 12.2 g/dL Hematocrit 36.2 % Mean Corpuscular Volume 98.6 fL Mean Corpuscular Hemoglobin 33.2 pg Mean Corpuscular Hemoglobin Concent 33.7 g/dl RDW Standard Deviation 47.1 fL RDW Coefficient of Variation 13.0 % Platelet Count 148 K/uL Mean Platelet Volume 10.7 fL Sodium Level 137 mmol/L Potassium Level 4.3 mmol/L Chloride Level 109 mmol/L Carbon Dioxide Level 22 mmol/L Anion Gap 6.0 mmol/L Blood Urea Nitrogen 16 mg/dl Creatinine 0.85 mg/dl Est Creatinine Clear Calc Drug Dose 96.4 ml/min Estimated GFR () 100.9 Estimated GFR (Non- 87.1 BUN/Creatinine Ratio 18.9 Random Glucose 114 mg/dl Calcium Level 8.7 mg/dl Test 02/08/18 08:01 Bedside Glucose 106 mg/dl (Aneta Foster CRNP) Assessment and Plan Mr. Doyle is a 73 year old man here for septic prepatellar bursitis Septic Prepatellar Bursitis - Hgb 12 from 14, no leukocytosis - ID consulted - will need IV vanco for 6 weeks - s/p I&D in [place] 02/07 - joint aspirate growing staph but infection superficial and not within the joint - Bowel regimen, DVT prophylaxis, pain control, PT/OT per primary team DMII - bsgs ac & hs, ss - hold home glimepiride for now - can restart at discharge CAD, htn - continue atenolol, valsartan, Crestor - creat stable Medicine will sign off for now, please let us know if we can be of further service in the future (Aneta Foster CRNP) EVIDENCE TECHNICIAN Physician Supervision Note: I discussed with Aneta Foster NP and agree with findings and plan as documented in the note. Any exceptions or clarifications are listed here: None Documented By: Trent Zuniga (Trent Zuniga M.D.)
[2018-02-08] MEDS: SODIUM CHLORIDE 0.9% 1000ML 1,000 ML IV SCH ×2 (10:56→11:15)
[2018-02-08 11:40] VITALS: BP 130/72; PULSE 60; TEMP 36.8; O2SAT 95
[2018-02-08 15:20] VITALS: BP 138/78; PULSE 60; TEMP 36.4; O2SAT 96
[2018-02-08] MEDS ORDERED: VANCOMYCIN TROUGH ONE (17:30)
--- NOTE | 2018-02-08 18:50 | Pharmacy Progress Note ---
Pharmacy Abx Dose Short Note Date of Service Feb 08, 2018. Assessment & Plan Trough resulted @ 14.2mcg/mL. Per ID's note, just concerned with cellulitis at this juncture. No mention of osteomyelitis. Will continue with current dose and interval. No further lvls ordered. Renal fxn has remained stable. Pharmacy will continue to follow and will adjust dose/frequency as necessary. Thank you.
[2018-02-08] MEDS: ROSUVASTATIN CALCIUM 20 MG TAB PO SCH (20:57)
[2018-02-08 23:50] VITALS: BP 176/84; PULSE 59; TEMP 36.8; O2SAT 94
[2018-02-09] VITALS (7 sets, daily range): BP systolic 136–187; BP diastolic 70–81; PULSE 56–59; TEMP 36.8–36.9; O2SAT 92–97
[2018-02-09] MEDS: SODIUM CHLORIDE 0.9% 1000ML 1,000 ML IV SCH (00:56)
[2018-02-09] MEDS: VANCOMYCIN IV 1,500 MG in SODIUM CHLORIDE 0.9% 500ML 500 ML IV SCH (05:22)
[2018-02-09 06:06] LABS: HEMATOCRIT 37.3 % (42-52); HEMOGLOBIN 12.4 g/dL (14.0-18.0); MEAN CELL VOLUME 98.7 fL (80-100); MEAN CORPUSCULAR HEMOGLOBIN 32.8 pg (25-34); MEAN CORPUSCULAR HGB CONC 33.2 g/dl (32-36); MEAN PLATELET VOLUME 11.2 fL (7.4-10.4); PLATELET COUNT 172 K/uL (130-400); RED CELL DISTRIBUTION WIDTH CV 12.9 % (11.5-14.5); RED CELL DISTRIBUTION WIDTH SD 46.2 fL (36.4-46.3); WHITE BLOOD COUNT 5.84 K/uL (4.8-10.8)
[2018-02-09 06:39] LABS: CALCIUM 8.6 mg/dl (8.5-10.1); CREATININE 0.79 mg/dl (0.60-1.40); POTASSIUM 3.9 mmol/L (3.5-5.1)
[2018-02-09] MEDS: CHOLECALCIFEROL 1000 INTER.UNIT TAB PO SCH (08:11)
[2018-02-09] MEDS: DOCUSATE SODIUM 100 MG CAP PO SCH ×2 (08:11→20:32)
[2018-02-09] MEDS: VALSARTAN 80 MG TAB PO SCH (08:12)
[2018-02-09] MEDS: MULTIVITAMIN TAB PO SCH (08:12)
[2018-02-09] MEDS: GEMFIBROZIL 600 MG TAB PO SCH ×2 (08:12→16:37)
[2018-02-09] MEDS: PANTOprazole SOD 40 MG TAB PO SCH (08:12)
[2018-02-09] MEDS: ASCORBIC ACID 500 MG TAB PO SCH (08:13)
[2018-02-09] MEDS: INSULIN ASPART 100 UNITS/ML 3 ML PEN SC SCH ×4 (08:17→21:00)
--- NOTE | 2018-02-09 09:06 | Hospitalist Progress Note ---
Hospitalist Progress Note Date of Service Feb 09, 2018. (Aneta Foster .KIZZY) Subjective Pt evaluation today including: conversation w/ patient, physical exam, chart review, lab review, review of studies, review of inpatient medication list Voiding: no voiding problems Mr. Saini blood pressure has been running high however he is asymptomatic, ambulating the halls and tolerating well. ROS Constitutional: no chills, aches, sweats or fever Respiratory: no sob,cough, sputum, or wheezing Cardiac: no chest pain, palpitations, edema, orthopnea or lightheadedness GI: no abdominal pain, nausea, vomiting, diarrhea or constipation : no dysuria or hesitancy Extremities: no joint pain or weakness Skin: no rash All other systems reviewed and negative (Aneta Foster CRNP) Medications Medications Administered Medications (Trade) Dose Ordered Sig/Farzana Route Start Time Stop Time Status Last Admin Dose Admin Acetaminophen/ Codeine Phosphate (Tylenol w/ Codeine #3 Tab) `1-2 TABS FOR PAIN `1 TAB... Q4 PRN PO 02/06/18 19:30 02/07/18 13:41 DC 02/06/18 21:23 1 TAB Acetaminophen (Tylenol Tab) 650 mg Q6H PRN PO 02/06/18 19:30 03/08/18 19:29 02/07/18 15:31 650 MG Docusate Sodium (coLACE CAP) 100 mg BID PO 02/06/18 21:00 03/08/18 20:59 02/09/18 08:11 100 MG Pantoprazole Sodium (Protonix Tab) 40 mg QAM PO 02/07/18 09:00 02/10/18 09:01 02/09/18 08:12 40 MG Magnesium Hydroxide (Milk Of Magnesia Susp) 30 ml Q6H PRN PO 02/06/18 19:30 03/08/18 19:29 02/08/18 19:31 30 ML Sodium Chloride 1,000 ml @ 75 mls/hr [id number] IV 02/06/18 20:00 02/09/18 08:47 DC 02/09/18 00:56 75 MLS/HR Vancomycin HCl 1500 mg/Sodium Chloride 530 ml @ 200 mls/hr Q12H IV 02/07/18 06:00 02/16/18 19:59 8/12/18 05:22 200 MLS/HR Ascorbic Acid (Vitamin C Tab) 500 mg DAILY PO 02/07/18 09:00 03/09/18 08:59 02/09/18 08:13 500 MG Atenolol (Tenormin Tab) 100 mg QAM PO 02/07/18 09:00 03/09/18 08:59 02/09/18 08:13 100 MG Cholecalciferol (Vitamin D Tab) 2,000 inter.unit DAILY PO 02/07/18 09:00 03/09/18 08:59 02/09/18 08:11 2,000 INTER.UNIT Multivitamins (Multivitamin Tab) 1 tab DAILY PO 02/07/18 09:00 03/09/18 08:59 02/09/18 08:12 1 TAB Valsartan (Diovan Tab) 80 mg DAILY PO 02/07/18 09:00 03/09/18 08:59 02/09/18 08:12 80 MG Vancomycin HCl 2500 mg/Sodium Chloride 550 ml @ 200 mls/hr TODAY@2014 ONCE IV 02/06/18 20:15 02/06/18 22:59 DC 02/06/18 20:26 200 MLS/HR Gemfibrozil (Lopid Tab) 600 mg BID@0800,1700 PO 02/07/18 08:00 03/09/18 07:59 02/09/18 08:12 600 MG Rosuvastatin Calcium (Crestor Tab) 40 mg HS PO 02/06/18 21:00 03/08/18 20:59 02/08/18 20:57 40 MG Insulin Aspart (novoLOG ASPART) SLIDING SCALE If C... ACHS SC 02/07/18 12:00 03/09/18 11:59 02/09/18 08:17 1 UNITS Cefazolin Sodium (Ancef 2000mg Iv Push) 2,000 mg STK-MED ONCE .ROUTE 02/07/18 11:48 02/07/18 11:49 DC 02/07/18 12:54 2,000 MG Bacitracin (Bacitracin Inj) 100,000 units STK-MED ONCE .ROUTE 02/07/18 11:55 02/07/18 11:56 DC 02/07/18 13:45 100,000 UNITS Fentanyl Citrate (Fentanyl Inj) 25 mcg Q5M PRN IV 02/07/18 12:45 02/07/18 17:45 DC 02/07/18 14:39 25 MCG (Aneta Foster CRNP) Objective Vital Signs Date Time Temp Pulse Resp B/P (MAP) Pulse Ox O2 Delivery O2 Flow Rate FiO2 02/09/18 08:06 36.9 59 17 163/79 (107) 97 Room Air 02/09/18 05:15 57 169/70 (103) 92 Room Air 02/09/18 00:55 173/71 (105) 02/08/18 23:50 36.8 59 16 176/84 (114) 94 Room Air 02/08/18 19:15 Room Air 02/08/18 15:20 36.4 60 22 138/78 (98) 96 Room Air 02/08/18 15:20 Room Air 02/08/18 11:40 36.8 60 22 130/72 (91) 95 Room Air (Aneta Foster CRNP) Physical Exam Notes: General: no distress Eyes: normal inspection, PERLL Respiratory: chest non tender, clear to auscultation, normal breath sounds, no respiratory distress, no accessory muscle use Cardiac: regular rate and rhythm, no rub or gallop, systolic murmur, no edema, no jvd GI/: active bowel sounds, no abd pain or tenderness, soft, non distended Extremities: normal range of motion, normal strength, non tender Neuro/Psych: alert and oriented x 3, normal mood and affect Skin: normal color, dry (Aneta Foster CRNP) Laboratory Results Last 24 Hours Test 02/08/18 11:57 02/08/18 17:27 02/08/18 17:37 02/08/18 20:38 Bedside Glucose 174 mg/dl 161 mg/dl 147 mg/dl Vancomycin Level Trough 14.2 mcg/ml Test 02/09/18 05:14 02/09/18 08:02 White Blood Count 5.84 K/uL Red Blood Count 3.78 M/uL Hemoglobin 12.4 g/dL Hematocrit 37.3 % Mean Corpuscular Volume 98.7 fL Mean Corpuscular Hemoglobin 32.8 pg Mean Corpuscular Hemoglobin Concent 33.2 g/dl RDW Standard Deviation 46.2 fL RDW Coefficient of Variation 12.9 % Platelet Count 172 K/uL Mean Platelet Volume 11.2 fL Sodium Level 139 mmol/L Potassium Level 3.9 mmol/L Chloride Level 109 mmol/L Carbon Dioxide Level 24 mmol/L Anion Gap 6.0 mmol/L Blood Urea Nitrogen 16 mg/dl Creatinine 0.79 mg/dl Est Creatinine Clear Calc Drug Dose 103.7 ml/min Estimated GFR () 104.0 Estimated GFR (Non- 89.7 BUN/Creatinine Ratio 20.5 Random Glucose 150 mg/dl Calcium Level 8.6 mg/dl Bedside Glucose 162 mg/dl (Aneta Foster CRNP) Assessment and Plan Mr. Doyle is a 73 year old man here for septic prepatellar bursitis Septic Prepatellar Bursitis - Hgb stable, no leukocytosis - ID consulted - per ID, patient will need 2g daily of Rocephin for 4 weeks - s/p I&D in [place] 02/07 - joint aspirate growing staph - Bowel regimen, DVT prophylaxis, pain control, PT/OT per primary team DMII - bsgs ac & hs, ss - hold home glimepiride for now - can restart at discharge CAD, htn - continue atenolol, valsartan, Crestor - restarted amlodipine and discontinued fluids as pressures running high - creat stable (Aneta Foster CRNP) HOME AGENT Physician Supervision Note: I interviewed and examined the patient. Discussed with Aneta Foster HOME AGENT and agree with findings and plan as documented in the note. Any exceptions or clarifications are listed here: None Patient can have PICC line placed for 4 additional weeks of intravenous Rocephin therapy I did consent him to PICC line placement today Documented By: Trent Zuniga (Trent Zuniga M.D.)
[2018-02-09] MEDS: AMLODIPINE BESYLATE 5 MG TAB PO SCH (09:36)
--- NOTE | 2018-02-09 10:11 | Orthopedic Progress Note ---
Orthopedic Progress Note Date of Service Feb 09, 2018. Subjective Post OP Day: 2 Reports: feeling well, Denies: chest pain, SOB, nausea / vomiting, light headedness, calf pain Objective calves soft nontender, N/V intact, capillary refill less than 2 sec., incision C /D/I, A&O x3, toes mobile AREA AROUND INCISION IS MACERATED AND SLOUGHING OFF. INCISION INTACT, NO DRAINAGE. ERYTHEMA NOTED THROUGHOUT THE LOWER EXTREMITY INTO THE ANKLE WITH MODERATE EDEMA. Date Time Temp Pulse Resp B/P (MAP) Pulse Ox O2 Delivery O2 Flow Rate FiO2 02/09/18 09:34 57 158/72 (100) 95 Room Air 02/09/18 08:06 36.9 59 17 163/79 (107) 97 Room Air 02/09/18 08:05 Room Air 02/09/18 05:15 57 169/70 (103) 92 Room Air 02/09/18 00:55 173/71 (105) 02/08/18 23:50 36.8 59 16 176/84 (114) 94 Room Air 02/08/18 19:15 Room Air 02/08/18 15:20 36.4 60 22 138/78 (98) 96 Room Air 02/08/18 15:20 Room Air 02/08/18 11:40 36.8 60 22 130/72 (91) 95 Room Air Laboratory Results 24 Hours: Test 02/09/18 05:14 Hematocrit 37.3 % Hemoglobin 12.4 g/dL Assessment & Plan Assessment: Septic Prepatellar Bursitis - above noted gram stain from aspiration done in office last night. h/o HTN, hypercholesterolemia, PVD with hx of aneurysm of the left leg, DM h/o aspiration pneumonia on last hospital stay in [place] resulting in sepsis and a 6 week hospital stay Plan: Currently on ROCEPHIN - CULTURES- MSSA, RANGEL SENSITIVE. - ID CONSULTED. RECOMMEND IV ROCEPHIN X 4 WEEKS - CM TO ARRANGE HOME IVS Medical Management per [facility] Hospitalists ID consult placed. PAIN MANAGEMENT PT/OT DRESSING/DRAIN DC'D THIS AM. STILL WITH MODERATE EDEMA/ERYTHEMA IN THE DISTAL LLE. RECOMMEND STRICT ELEVATION TODAY. CONSULT WOUND CARE FOR RECOMMENDATIONS
[2018-02-09] MEDS: CEFTRIAXONE SOD INJ 2,000 MG in DEXTROSE 5% 50ML 50 ML IV SCH (10:41)
[2018-02-09] MEDS: ROSUVASTATIN CALCIUM 20 MG TAB PO SCH (20:33)
[2018-02-10 01:13] VITALS: BP 184/75
[2018-02-10 07:10] LABS: HEMATOCRIT 41.7 % (42-52); HEMOGLOBIN 14.2 g/dL (14.0-18.0); MEAN CELL VOLUME 97.7 fL (80-100); MEAN CORPUSCULAR HEMOGLOBIN 33.3 pg (25-34); MEAN CORPUSCULAR HGB CONC 34.1 g/dl (32-36); MEAN PLATELET VOLUME 10.4 fL (7.4-10.4); PLATELET COUNT 233 K/uL (130-400); RED CELL DISTRIBUTION WIDTH CV 12.7 % (11.5-14.5); RED CELL DISTRIBUTION WIDTH SD 45.1 fL (36.4-46.3); WHITE BLOOD COUNT 6.06 K/uL (4.8-10.8)
[2018-02-10 07:16] VITALS: BP 179/75; PULSE 62; TEMP 36.8; O2SAT 97
[2018-02-10 07:41] LABS: CALCIUM 9.5 mg/dl (8.5-10.1); CREATININE 0.91 mg/dl (0.60-1.40); POTASSIUM 4.2 mmol/L (3.5-5.1)
--- NOTE | 2018-02-10 07:43 | Orthopedic Progress Note ---
Orthopedic Progress Note Date of Service Feb 10, 2018. Subjective Post OP Day: 3 Reports: feeling well Objective calves soft nontender, toes mobile Area around incision sloughing, mild serous drainage. Incision intact. Skin macerated. Mild to moderate edema and erythema. Date Time Temp Pulse Resp B/P (MAP) Pulse Ox O2 Delivery O2 Flow Rate FiO2 02/10/18 07:16 36.8 62 18 179/75 (109) 97 Room Air 02/10/18 01:13 184/75 (111) 02/09/18 23:50 94 Room Air 3.0 02/09/18 23:17 36.9 57 18 187/81 (116) 94 Room Air 02/09/18 19:30 Room Air 02/09/18 15:38 36.8 56 16 136/79 (98) 96 Room Air 02/09/18 15:30 Room Air 02/09/18 09:34 57 158/72 (100) 95 Room Air 02/09/18 08:06 36.9 59 17 163/79 (107) 97 Room Air 02/09/18 08:05 Room Air Laboratory Results 24 Hours: Test 02/10/18 06:58 Hematocrit 41.7 % Hemoglobin 14.2 g/dL Assessment & Plan Assessment: Septic Prepatellar Bursitis - POD#3 I&D of septic prepatellar bursitis h/o HTN, hypercholesterolemia, PVD with hx of aneurysm of the left leg, DM h/o aspiration pneumonia on last hospital stay in [place] resulting in sepsis and a 6 week hospital stay Plan: Currently on ROCEPHIN - CULTURES- MSSA, RANGEL SENSITIVE. - ID CONSULTED. RECOMMEND IV ROCEPHIN X 4 WEEKS - CM TO ARRANGE HOME IVS [facility] PAIN MANAGEMENT PT/OT DRESSING/DRAIN DC'D YESTERDAY. STILL WITH MILD TO MODERATE EDEMA/ERYTHEMA IN THE DISTAL LLE. CONTINUE TO ELEVATE EXTREMITY AWAITING WOUND CARE RECOMMENDATIONS
--- NOTE | 2018-02-10 07:48 | Anesthesiology Progress Note ---
Anesthesia Post Op Note Date & Time Feb 10, 2018 at 07:47 Vital Signs Pain Intensity: 1 Vital Signs Past 12 Hours Date Time Temp Pulse Resp B/P (MAP) Pulse Ox O2 Delivery O2 Flow Rate FiO2 02/10/18 07:16 36.8 62 18 179/75 (109) 97 Room Air 02/10/18 01:13 184/75 (111) 02/09/18 23:50 94 Room Air 3.0 02/09/18 23:17 36.9 57 18 187/81 (116) 94 Room Air Notes Mental Status: alert / awake / arousable Pt Amnestic to Procedure: Yes Nausea / Vomiting: adequately controlled Pain: adequately controlled Airway Patency, RR, SpO2: stable & adequate BP & HR: stable & adequate Hydration State: stable & adequate
[2018-02-10] MEDS: GEMFIBROZIL 600 MG TAB PO SCH (08:06)
[2018-02-10] MEDS: INSULIN ASPART 100 UNITS/ML 3 ML PEN SC SCH ×2 (08:56→12:44)
[2018-02-10] MEDS: AMLODIPINE BESYLATE 5 MG TAB PO SCH (08:58)
[2018-02-10] MEDS: CHOLECALCIFEROL 1000 INTER.UNIT TAB PO SCH (08:59)
[2018-02-10] MEDS: DOCUSATE SODIUM 100 MG CAP PO SCH (08:59)
[2018-02-10] MEDS: ASCORBIC ACID 500 MG TAB PO SCH (09:00)
[2018-02-10] MEDS: VALSARTAN 80 MG TAB PO SCH (09:00)
[2018-02-10] MEDS: PANTOprazole SOD 40 MG TAB PO SCH (09:00)
[2018-02-10] MEDS: MULTIVITAMIN TAB PO SCH (09:00)
[2018-02-10] MEDS: CEFTRIAXONE SOD INJ 2,000 MG in DEXTROSE 5% 50ML 50 ML IV SCH (10:22)
--- NOTE | 2018-02-10 10:56 | Progress Note ---
Subjective Date of Service: Feb 10, 2018. Subjective Pt evaluation today including: conversation w/ patient, physical exam, chart review, lab review cultures with MSSA from OR x2. now on rocephin, tolerating well. denies abd pain, no n/v/d. no f/c. no pain in knee. dressing intact. picc placed. for d/c today. all remaining ros reviewed and are negative. Objective Vital Signs Date Time Temp Pulse Resp B/P (MAP) Pulse Ox O2 Delivery O2 Flow Rate FiO2 02/10/18 07:50 Room Air 02/10/18 07:16 36.8 62 18 179/75 (109) 97 Room Air 02/10/18 01:13 184/75 (111) 02/09/18 23:50 94 Room Air 3.0 02/09/18 23:17 36.9 57 18 187/81 (116) 94 Room Air 02/09/18 19:30 Room Air 02/09/18 15:38 36.8 56 16 136/79 (98) 96 Room Air 02/09/18 15:30 Room Air Physical Exam General Appearance: WD/WN, no apparent distress Eyes: normal inspection, EOMI Neck: supple Respiratory/Chest: lungs clear, normal breath sounds, no respiratory distress Cardiovascular: regular rate, rhythm, no edema Abdomen: non tender, soft Extremities: non-tender, no pedal edema Neurologic/Psychiatric: alert, oriented x 3 Skin: normal color Comments: left knee dressing c/d/i, erythema improving. Laboratory Results Item Value Date Time Gram Stain - Final Resulted 02/07/18 1345 Tissue Knee Left Gram Stain - Final Resulted 02/07/18 1330 Joint Fluid/Space (Synovial) Knee Left Gram Stain - Final Resulted 02/07/18 1345 Tissue Knee Left Gram Stain - Final Resulted 02/07/18 1330 Joint Fluid/Space (Synovial) Knee Left Last 24 Hours Test 02/09/18 11:54 02/09/18 17:04 02/09/18 20:40 02/10/18 06:58 Bedside Glucose 274 mg/dl 154 mg/dl 175 mg/dl White Blood Count 6.06 K/uL Red Blood Count 4.27 M/uL Hemoglobin 14.2 g/dL Hematocrit 41.7 % Mean Corpuscular Volume 97.7 fL Mean Corpuscular Hemoglobin 33.3 pg Mean Corpuscular Hemoglobin Concent 34.1 g/dl RDW Standard Deviation 45.1 fL RDW Coefficient of Variation 12.7 % Platelet Count 233 K/uL Mean Platelet Volume 10.4 fL Sodium Level 140 mmol/L Potassium Level 4.2 mmol/L Chloride Level 104 mmol/L Carbon Dioxide Level 30 mmol/L Anion Gap 6.0 mmol/L Blood Urea Nitrogen 19 mg/dl Creatinine 0.91 mg/dl Est Creatinine Clear Calc Drug Dose 90.0 ml/min Estimated GFR () 97.2 Estimated GFR (Non- 83.9 BUN/Creatinine Ratio 20.4 Random Glucose 173 mg/dl Calcium Level 9.5 mg/dl Test 02/10/18 08:15 Bedside Glucose 155 mg/dl Assessment and Plan (1) Cellulitis of knee, left Assessment & Plan: continue Rocephin 2 g daily x 4 weeks. will need weekly cbc , cmp, esr while on therapy. can follow with ID post d/c.
--- NOTE | 2018-02-10 12:05 | Hospitalist Progress Note ---
Hospitalist Progress Note Date of Service Feb 10, 2018. Subjective Pt evaluation today including: conversation w/ patient, conversation w/ family ( at bedside), physical exam, chart review, lab review, review of inpatient medication list Pain: None PO Intake: Tolerating PO diet Voiding: no voiding problems Patient reports feeling well. He denies any LLE pain. He is tolerating a PO diet well, voiding, and moving his bowels. He denies any acute complaints. Pt does verify that he in fact takes valsartan 160 mg daily, not 80. The patient denies fevers, chills, sweats, chest pain, palpitations, claudication, cough, wheezing, shortness of breath, nausea, vomiting, abdominal pain, dysuria, hematuria, urinary retention, paralysis, weakness, numbness and tingling. Additional Comments: See HPI for pertinent positives and negatives. All other systems reviewed and negative. Objective Vital Signs Date Time Temp Pulse Resp B/P (MAP) Pulse Ox O2 Delivery O2 Flow Rate FiO2 02/10/18 07:50 Room Air 02/10/18 07:16 36.8 62 18 179/75 (109) 97 Room Air 02/10/18 01:13 184/75 (111) 02/09/18 23:50 94 Room Air 3.0 02/09/18 23:17 36.9 57 18 187/81 (116) 94 Room Air 02/09/18 19:30 Room Air 02/09/18 15:38 36.8 56 16 136/79 (98) 96 Room Air 02/09/18 15:30 Room Air Physical Exam Notes: General appearance: Well-developed, well-nourished, no apparent distress Head: Normocephalic, atraumatic Eyes: Normal inspection, PERRL, EOMI ENT: Normal ENT inspection, hearing grossly normal, pharynx normal Neck: Supple, no JVD, trachea midline Respiratory/Chest: Lungs clear to auscultation, normal breath sounds, no respiratory distress Cardiovascular: +Systolic murmur. Regular rate & rhythm, no gallop Abdomen/GI: Normal bowel sounds, non-tender, soft Extremities/Musculoskeletal: +LLE wounds covered in optifoam. Slight erythema LLE. 1+ pitting edema LLE. No calf tenderness Neurological/Psych: Alert, normal mood/affect, oriented x 3 Skin: Normal color, warm/dry, no rash Laboratory Results Last 24 Hours Test 02/09/18 17:04 02/09/18 20:40 02/10/18 06:58 02/10/18 08:15 Bedside Glucose 154 mg/dl 175 mg/dl 155 mg/dl White Blood Count 6.06 K/uL Red Blood Count 4.27 M/uL Hemoglobin 14.2 g/dL Hematocrit 41.7 % Mean Corpuscular Volume 97.7 fL Mean Corpuscular Hemoglobin 33.3 pg Mean Corpuscular Hemoglobin Concent 34.1 g/dl RDW Standard Deviation 45.1 fL RDW Coefficient of Variation 12.7 % Platelet Count 233 K/uL Mean Platelet Volume 10.4 fL Sodium Level 140 mmol/L Potassium Level 4.2 mmol/L Chloride Level 104 mmol/L Carbon Dioxide Level 30 mmol/L Anion Gap 6.0 mmol/L Blood Urea Nitrogen 19 mg/dl Creatinine 0.91 mg/dl Est Creatinine Clear Calc Drug Dose 90.0 ml/min Estimated GFR () 97.2 Estimated GFR (Non- 83.9 BUN/Creatinine Ratio 20.4 Random Glucose 173 mg/dl Calcium Level 9.5 mg/dl Assessment and Plan 73 y/o male with a history of CAD, ID, HTN, and DM II who presents with septic prepatellar bursitis. Septic Prepatellar Bursitis--resolving - S/p OR I&D on 02/07, POD #3 - Cultures positive for MSSA - Afebrile, no leukocytosis, no pain - ID consulted, appreciate recs: Rocephin x 4 weeks, will need weekly CBC, CMP , ESR monitoring while on abx - Bowel regimen, DVT prophylaxis, pain control, PT/OT per primary team - Script for Rocephin 2 gm IV qd x 26 more days (received 2 days while inpatient ) and weekly lab monitoring provided CAD, h/o ID, HTN--BPs elevated - BP has been elevated, amlodipine restarted 02/09 - Reviewed home meds, pt supposed to be on valsartan 160 mg but only getting 80 mg here - Valsartan 80 mg PO x1 stat. Repeat BP improved - Continue atenolol, amlodipine, Lopid, and Crestor - Resume ASA and Plavix when ok with surgery DM II--stable, BSGs largely controlled here - Glimepiride and Invokamet on hold - Insulin sliding scale - Check BSGs q ac and qhs Pt. is stable from a medical standpoint, we will sign off. Clear for discharge as per primary team.
[2018-02-10] MEDS ORDERED: VALSARTAN 80 MG TAB PO STA (12:11)
[2018-02-10] MEDS ORDERED: CEFT1INJ57 IV (13:28)
--- NOTE | 2018-02-10 13:45 | Discharge Instructions ---
Discharge Instructions Date of Service Feb 10, 2018. Admission Reason for Admission: Cellulitis - Left Anterior Tibia Discharge Discharge Diagnosis / Problem: Septic Prepatellar Bursitis Left Knee Discharge Goals Goal(s): Decrease discomfort, Improve function, Increase independence Activity Recommendations Activity Limitations: per Instructions/Follow-up section Weightbearing Status: Left weightbearing (as tolerated) . Instructions / Follow-Up Instructions / Follow-Up Keep dressing clean and dry. Daily dressing changes. Follow instructions from wound care on how to take care of the skin blister You can be weightbearing as tolertated on the left lower extremity. You can shower only if you keep a waterproof covering over the knee/dressing. No tub baths. No direct shower pressure on the wound. When the wound remains dry, you will be able to get the wound wet. Call the office if you have increased temperature of 101.5 or greater; increased , redness, swelling, or drainage from the wound. Follow up with Dr Horton this week. Call for an appointment. [phone] Sharpe in 10-14 days. Call for an appointment. [phone] Follow up with your Primary Care Physician for BP and Blood Sugar checks in 7- 10 days. Current Hospital Diet Patient's current hospital diet: Diabetes Type 2 Diet Discharge Diet Recommended Diet: Diabetes Type 2 Diet Procedures Procedures Performed: Left Knee Incision and Drainage, Incision and Drainage Pre-Patellar Bursa Pending Studies Studies pending at discharge: no Medical Emergencies . Who to Call and When: Medical Emergencies: If at any time you feel your situation is an emergency, please call 911 immediately. . Non-Emergent Contact Non-Emergency issues call your: Surgeon Call Non-Emergent contact if: temperature is above 101.5, your pain is not controlled, your pain is worsening, wound has increased drainage, wound has increased redness . "Provider Documentation" section prepared by Jason Valdivia. . [place] Drug Monitoring Program Search Results: patient reviewed within database, no issues identified
[2018-02-10 14:15] VITALS: BP 156/75; PULSE 56
[2018-02-10] MEDS ORDERED: ACET-24 PO ×2 (14:20→14:21)
[2018-02-10 14:44] VITALS: BP 156/75; PULSE 56; TEMP 36.8; O2SAT 97
[2018-02-11] MEDS ORDERED: VALSARTAN 80 MG TAB PO SCH (09:00)
--- NOTE | 2018-02-11 20:16 | DISCHARGE SUMMARY ---
DISCHARGE DIAGNOSIS: Left septic prepatellar bursitis. CONSULTS: Dr. Estela Sharpe; KIZZY Ren; Mp Zuniga MD COMPLICATIONS: None. PROCEDURES: Irrigation and debridement of left septic prepatellar bursitis on 02/07/2018. BRIEF HISTORY: As dictated in the history and physical. HOSPITAL SUMMARY: The patient was admitted on 02/06/2018 with the above-noted prepatellar septic bursitis. He had been started on IV antibiotics and plans are for I and D the following day. On his first hospital day, he was sitting in his chair that morning, continued to have pain in the anterior portion of his knee. He denied any deep knee pain especially with range of motion, stated that ambulating, weightbearing as tolerated makes it feel better. Calves were soft, nontender. Neurovascularly intact. Toes were mobile. His left knee had noted erythema. Prepatellar area had swelling and induration. It is very painful on palpation of this area and although there was no overt fluid pockets that could be appreciated. The bursa was swollen and boggy to palpation. Erythema travels distally to the ankle and denied ankle pain at that time. He had an abrasion scab over the lower leg where he had hit the leg on the piece of a lumber. Previously, range of motion of the knee was 95 degrees before it stopped due to pain in the prepatellar bursa area. No drainage was noted. Bowel sounds were stable. He was afebrile and hemoglobin was 14.4. He was then taken to the operating room and the above-noted washout was performed, which he tolerated well. On his first postoperative day, he was feeling well and had no complaints. Calves were soft and nontender. Neurovascularly intact. Dressings clean, dry, and intact. Toes were mobile. Hemovac drainage was around 15 mL. Vital signs were stable. He was afebrile. Hemoglobin was 12.2. He was continued on vancomycin and plans were for continued vancomycin until final cultures were available to make further decisions through Dr. Sharpe. By the second postoperative day, he continued to feel well. Calves were soft and nontender. Neurovascularly intact. Cap refill is less than 2 seconds. Incision was clean, dry, and intact. Toes were mobile. Area around the incision appeared somewhat macerated and sloughing. Incision was intact. No drainage or erythema noted throughout the lower extremity and to the ankle with moderate edema. Vital signs are stable. He was afebrile. Cultures were showing MSSA pansensitive and plans were for IV Rocephin. He was continuing to feel well and remained medically stable. Wound care was consulted to look at the patient's macerations of the skin for which he was seen by Dr. Gemini Carrera who felt that this was a blister secondary to infection, which was cleaned and some of the blister was removed through gentle cleaning of the area. She discussed how to take care of this wound and confirmed that the patient understood the cleaning directions and an Optifoam was then placed over it. He was otherwise remaining stable. Final decisions on antibiotics were made by Dr. Sharpe. Case management had arranged for the patient to receive the antibiotics by 02/10/2018. He was remaining stable and was likely discharged to home. For further review, please see chart. LAB AND X-RAY DATA: As per chart. DISCHARGE INSTRUCTIONS: The patient was discharged home in satisfactory condition on 02/10/2018. Diet: Diabetic. Activity: Weightbearing as tolerated left lower extremity. Instructions: Keep dressing clean and dry, daily dressing changes. Follow instructions from wound care on how to take care of the skin blister. Weightbearing as tolerated on the left lower extremity. He can shower only with waterproof covering over the knee dressing. No tub bath. No direct shower pressure on the wound. When the wound remains dry, you may get the wound wet. Call the office if you have the increased temperature of 101.5 or greater, increased redness, swelling, or drainage from the wound. Follow up with Dr. Horton this coming week for wound check. Followup with Dr. Sharpe in 10-14 days. The patient to call for appointment. Follow up with your primary care physician for blood pressure and blood sugar checks in 7-10 days. DISCHARGE MEDICATIONS: Acetaminophen 1000 mg p.o. t.i.d. for 10 days, ceftriaxone 2 g IV daily for 14 days. Resume home meds as listed. MTDD
--- NOTE | 2018-02-14 10:50 | EDITING REQUIRED CODING QUERY ---
DEBRIDEMENT DOCUMENTATION To promote full compliance with coding requirements relating to patient care, physician participation is requested in all cases of sound system installer uncertainty. Please assist us with the question(s) below: Please place an X in the parenthesis (x). If other, please document the finding: Type of Debridement: ( ) Excisional Debridement- Cutting away necrotic, devitalized tissue or slough to the level of viable tissue using a sharp instrument (i.e. scalpel, scissors, etc.) ( ) Non Excisional Debridement- The removal of necrotic, devitalized tissue or slough by means of scraping, mechanical brushing, flushing, or washing (i.e. irrigation,whirlpool);minor removal of loose fragments. ( ) Other (please specify): Instrument Used: ( ) Scissors ( ) Scalpel ( ) Curette ( ) Other (please specify): Depth of Debridement: ( ) Skin ( ) Skin and Subcutaneous Tissue ( ) Skin, Subcutaneous Tissue and Muscle ( ) Skin, Subcutaneous Tissue, Muscle and Bone ( ) Other (please specify): Please Specify the Size of Debridement in cm2: Please Specify below regarding Debridement: ( ) Debridement was done for Therapeutic purpose ( ) Debridement was done for both Therapeutic and Diagnostic purposes ( ) Debridement was done for Diagnostic Purpose Thank you Ne Juarez
--- NOTE | 2018-02-14 10:57 | CODING QUERY NO DIAGNOSIS ---
DEBRIDEMENT DOCUMENTATION To promote full compliance with coding requirements relating to patient care, physician participation is requested in all cases of ash worker uncertainty. Please assist us with the question(s) below: Please place an X in the parenthesis (x). If other, please document the finding: Type of Debridement: ( ) Excisional Debridement- Cutting away necrotic, devitalized tissue or slough to the level of viable tissue using a sharp instrument (i.e. scalpel, scissors, etc.) ( ) Non Excisional Debridement- The removal of necrotic, devitalized tissue or slough by means of scraping, mechanical brushing, flushing, or washing (i.e. irrigation,whirlpool);minor removal of loose fragments. ( ) Other (please specify): Instrument Used: ( ) Scissors ( ) Scalpel ( ) Curette ( ) Other (please specify): Depth of Debridement: ( ) Skin ( ) Skin and Subcutaneous Tissue ( ) Skin, Subcutaneous Tissue and Muscle ( ) Skin, Subcutaneous Tissue, Muscle and Bone ( ) Other (please specify): Please Specify the Size of Debridement in cm2: Please Specify below regarding Debridement: ( ) Debridement was done for Therapeutic purpose ( ) Debridement was done for both Therapeutic and Diagnostic purposes ( ) Debridement was done for Diagnostic Purpose Provider Signature: Date: Thank you Ne Dai [facility] Information Management Once completed, please kindly fax back to [phone] For questions please call [phone]
== END 2018-02-10 15:20 | disposition home or self-care (01) | DRG 501 ==
LOC: C.3E 18:28
PROVIDERS: ADMIT Orthopaedic Surgery Sports Medicine; ATTEND Orthopaedic Surgery Sports Medicine
PROC: 0M9 Bursae and Ligaments, Drainage (ICD-10-PCS; principal; 2018-02-07 12:30)
PROC: 0JDP0ZZ Extraction of Left Lower Leg Subcutaneous Tissue and Fascia, Open Approach (ICD-10-PCS; principal; 2018-02-07 12:30)
PROC: 05HC33Z Insertion of Infusion Device into Left Basilic Vein, Percutaneous Approach (ICD-10-PCS; 2018-02-09)
DX: M71.162 Other infective bursitis, left knee (principal); L03.116 Cellulitis of left lower limb; M70.42 Prepatellar bursitis, left knee; B95.61 Methicillin susceptible Staphylococcus aureus infection as the cause of diseases classified elsewhere; I11.9 Hypertensive heart disease without heart failure; E11.51 Type 2 diabetes mellitus with diabetic peripheral angiopathy without gangrene; E78.00 Pure hypercholesterolemia, unspecified; I25.10 Atherosclerotic heart disease of native coronary artery without angina pectoris; Z96.652 Presence of left artificial knee joint; Z79.899 Other long term (current) drug therapy; Z79.84 Long term (current) use of oral hypoglycemic drugs; Z79.82 Long term (current) use of aspirin; Z86.19 Personal history of other infectious and parasitic diseases; Z87.01 Personal history of pneumonia (recurrent); Z87.891 Personal history of nicotine dependence; Z88.8 Allergy status to other drugs, medicaments and biological substances; W22.8XXA Striking against or struck by other objects, initial encounter; Y99.8 Other external cause status

== ENCOUNTER → 2018-02-06 | Outpatient (CLI) | payer OTHER, MEDICARE ==
[~2018-02-06] MED LIST: ACET-24 PO; AMLO5TAB3 PO; AMR2 PO; ASCA500 PO; ASPEC81 PO; ATEN-175 PO; CANA1TAB5; CEFT1INJ57 IV; CHOL100010 PO; CLOP1TAB15 PO; CRS20 PO; DVN80 PO; FERR1TAB23; GABA-112 PO; GABA-113 PO; GEMF600T5 PO; GLC500 PO; MELA1TAB3; MULT-506 PO; NTRGSL/4 UT; OMEG10007 PO; PANT40TA PO
== END | disposition home or self-care (01) ==
LOC: C.LAB 18:36
PROVIDERS: ATTEND Physician Assistant
DX: L03.818 Cellulitis of other sites (principal)

== ENCOUNTER 2019-02-05 13:23 | Inpatient (IN) ==
--- OUTSIDE RECORDS SUMMARY | 2019-02-05 15:28 | External Medical Summary | Continuity of Care Document ---
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 Start: 06-Mar-2018 Refills: 0 5 x 3 ML Pen metFORMIN HCl - 1000 MG Oral Tablet; TAKE 1 TABLET EVERY 12 HOURS DAILY. Start: 05-Jun-2018 Refills: 0 Aspirin EC Adult Low Strength 81 MG Oral Tablet Delayed Release; TAKE 1 TABLET DAILY. Start: 12-Feb-2018 Refills: 0 Atenolol 100 MG Oral Tablet; [facility]KE [address] [facility]. Start: 12-Feb-2018 Refills: 0 Vitamin D (Cholecalciferol) 1000 UNIT Oral Tablet; TAKE 2 TA BLETS DAILY. Start: 12-Feb-2018 Refills: 0 Clopidogrel Bisulfate 75 MG Oral Tablet; TAKE 1 TABLET DAILY . Start: 12-Feb-2018 Refills: 0 30 Tablet Bottle Ferrous Sulfate 325 (65 Fe) MG Oral Tablet Start: 12-Feb-2018 Refills: 0 Gemfibrozil 600 MG Oral Tablet; TAKE 1 TABLET TWICE DAILY. Start: 12-Feb-2018 Refills: 0 Melatonin-Pyridoxine 1-10 MG Oral Tablet Start: 12-Feb-2018 Refills: 0 Multivitamin Adult Oral Tablet; TAKE 1 TABLET DAILY. Start: 12-Feb-2018 Refills: 0 Nitroglycerin 0.4 MG Sublingual Tablet S ublingual; DISSOLVE 1 TABLET UNDER THE TONGUE NEEDED FOR CHEST PAIN. Start: 12-Feb-2018 Refills: 0 Pantoprazole Sodium 40 MG Intravenous So lution Reconstituted; Take 1 tablet daily Start: 12-Feb-2018 Refills: 0 Rosuvastatin Calcium 40 MG Oral Tablet; TAKE 1 TABLET DAILY. Start: 12-Feb-2018 Refills: 0 Olmesartan Medoxomil 40 MG Oral Tablet; TAKE 1 TABLET DAILY. Start: 20-Feb-2018 Refills: 0 amLODIPine-Atorvastatin 5-20 MG Oral Tablet; 10 MG - TAKE DA HAILE Start: 12-Feb-2018 Refills: 0 Procedures Procedures not documented Immunizations Immunizations not documented Social History - Smoking Status Former smoker Interventions Discussion/SummaryAt this time he will be followed off of antibiotics. He will follow-up with infectious diseases on an as-needed basis. Plan of Treatment Planned Observations Planned Goals not documented Results No Known Results Results not documented Encounters Appointment; Estela Sharpe DO 06-Mar-2018 10:45 Encounter Diagnosis: Problem not documented Appointment; Estela Sharpe DO 20-Feb-2018 11:00 Encounter Diagnosis: Problem not documented Appointment; Estela Sharpe DO 05-Jun-2018 11:00 Encounter Diagnosis: Problem not documented
[2019-02-05] MEDS ORDERED: ACETAMINOPHEN 325 MG TAB PO PRN (16:05)
[2019-02-05] MEDS ORDERED: ONDANSETRON INJ 2 MG/ML 2 ML VIAL IV PRN (16:05)
[2019-02-05] MEDS ORDERED: VANCOMYCIN CONSULT ACTIVE PRN (16:05)
[2019-02-05] MEDS ORDERED: VANCOMYCIN HCL 1,000 MG in SODIUM CHLORIDE 0.9% 250 ML IV SCH (16:15)
[2019-02-05 16:56] LABS: Basophils # (auto) 0.02 K/uL (0-0.2); Basophils % (auto) 0.3 %; Eosinophils # (auto) 0.07 K/uL (0-0.5); Hemoglobin 13.2 g/dL (14.0-18.0); Immature Granulocytes # (auto) 0.03 K/uL (0.00-0.02); Immature Granulocytes % (auto) 0.4 %; Lymphocytes # (auto) 0.69 K/uL (1.2-3.4); Lymphocytes % (auto) 10.3 %; Mean Corpuscular Hgb Conc 34.7 g/dL (32-36); Mean Corpuscular Volume 95.5 fL (80-100); Mean Platelet Volume 10.5 fL (7.4-10.4); Monocytes # (auto) 0.62 K/uL (0.11-0.59); Monocytes % (auto) 9.2 %; Neutrophils # (auto) 5.28 K/uL (1.4-6.5); Neutrophils % (auto) 78.8 %; Platelet Count 211 K/uL (130-400); RDW Coefficient of Variation 12.6 % (11.5-14.5); RDW Standard Deviation 43.5 fL (36.4-46.3); Red Blood Count 3.98 M/uL (4.7-6.1); White Blood Count 6.71 K/uL (4.8-10.8)
[2019-02-05] MEDS ORDERED: PIPERACILL/TAZOBAC CONSULT ACTIVE PRN (17:01)
--- NOTE | 2019-02-05 17:01 | History & Physical Report ---
Date of Service February 05, 2019 Assessment & Plan (1) Diabetic ulcer of foot associated with diabetes mellitus due to underlying condition, with fat layer exposed: abrupt onset of left foot ulcer, just opened the past few days at the site of prior 2nd toe amputation, s/p hardware placed in metatarsals for support some chills but no fever, decreased appetite check CBC, obtain wound culture, CT foot with contrast, blood cultures consult Dr. Luna consult Dr. 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 Bautista to assess for vascular supply to foot (4) HTN (hypertension): BP stable at 110/67 continue Valsartan, Atenolol, Norvasc (5) CAD (coronary artery disease): heart attack 23 years ago, never required stent since that time he says that he has never had angina hold aspirin for time being in anticipation of surgery (6) Dyslipidemia: hold on Statin for now History of Present Illness Chief Complaint: I have a wound on my foot Primary Care Provider: Soren Ortega 74 yo male with history of DM type II on insulin, CAD, PVD, neuropathy and HTN presents as a direct admission from Dr. Luna's office with a wound to his left foot. He has a history of a hammer toe repair to the second left toe that did not go well and required an eventual amputation of the left 2nd toe. This was done in [place]. He followed up locally with Dr. Luna. He eventually required another surgery to make foot more stable, hardware placed on dorsal aspect of metatarsals of 1st and 2nd toe. The original wound healed well. He also had a wound to his left szymanski that spread into cellulitis, infected bursa of left knee. He was in his usual state of health when he noticed a wound to the area where the 2nd toe was amputated. The wound quickly progressed over 3 days and opened with purulent drainage. He admits to some chills but no fever. He has a decreased appetite. He did not notice any redness in the left foot or leg. No chest pain, cough or dysnea. No nausea or vomiting or diarrhea. He admits to having some neuropathy in feet, so unsure of how long the wound/ulcer was present prior to it rupturing. He went to see Dr. Luna today in the office and he was sent to hospital for direct admission. Recommended starting IV antibiotics and getting CT foot. Will also get vascular consult because the patient has a complex vascular history in the left leg with PVD but also his reports an aneurysm repair in left thigh/knee region that was at [facility]. Medically the patient has DM, sugars typically well controlled on oral regimen as well as Levemir and Humolog. Has remote h/o CAD with MT 23 years ago, never had a stent. Never has chest pain or angina. No history of COPD. Prior smoker. He reports two years ago that when he had the aneurysm of left femoral artery he was also in septic shock and suffered significant renal failure. He was on hemodialysis for a brief period after the illness but he and his report that his kidneys made a full recovery and he was taken off of HD. His PCP is in [place] and he gets his specialty care with [facility]. Medical history: PVD, CAD, HTN, Dyslipidemia, Neuropathy, DM type II insulin dependent, septic shock, acute renal failure requiring temporary HD, left femoral aneurysm Surgical history: 2nd toe amputation left, left TKA, left fem aneurysm repair Social history: prior smoker, drinks occasionally Family history: father due to complications of alcohol abuse, cirrhosis mother due to DM type II and heart disease brother due to esophageal CA sister living with DM type II Allergies Allergy/AdvReac Type Severity Reaction Status Date / Time No Known Allergies Allergy Unknown ` Verified 06/15/09 16:25 niacin AdvReac Intermediate SEVERE Verified 08/05/09 04:13 FLUSHING AND ELEV.BSG lovastatin AdvReac Mild SEVERE GI Verified 08/05/09 04:13 simvastatin AdvReac Mild SEVERE GI Verified 08/05/09 04:13 Home Medications Home Medications Medication Instructions Recorded Confirmed Type amlodipine 10 mg PO DAILY 02/05/19 02/05/19 History aspirin [Aspir-Low] 81 mg PO DAILY 02/05/19 02/05/19 History atenolol 100 mg PO DAILY 02/05/19 02/05/19 History clopidogrel 75 mg PO DAILY 02/05/19 02/05/19 History gemfibrozil 600 mg PO BID 02/05/19 02/05/19 History hydrochlorothiazide 25 mg PO DAILY 02/05/19 02/05/19 History insulin detemir U-100 [Levemir 50 unit SUBCUT DAILY 02/05/19 02/05/19 History U-100 Insulin] insulin lispro [Humalog KwikPen See Rx Instructions .ROUTE .COMPLEX 02/05/19 02/05/19 History Insulin] metformin 1,000 mg PO BID 02/05/19 02/05/19 History multivitamin 1 tab 02/05/19 History nitroglycerin [Nitrostat] See Rx Instructions .ROUTE .COMPLEX 02/05/19 02/05/19 History olmesartan 40 mg PO DAILY 02/05/19 02/05/19 History pantoprazole 40 mg PO DAILY 02/05/19 02/05/19 History rosuvastatin 40 mg PO DAILY 02/05/19 02/05/19 History Past Med/Surg History Social History Preferred Language: Scottish Communication Ability: Effective Brooch Maker Novelty Required: No Beliefs That Will Affect Care: Mormonism Mormonism Beliefs: Scientologist Current Living Situation: Spouse Feels Safe at Home: Yes Smoking Status: Former smoker Second Hand Exposure: No ; Hx Alcohol Use: Yes Alcohol type: beer Hx Substance Use: No Review of Systems Review of Systems: All systems reviewed & are unremarkable except as noted in HPI & below Physical Exam Constitutional: WD/WN, vitals as above Eyes: PERRL, conjunctivae normal, anicteric sclerae ENMT: external ear and nose normal, oropharynx normal Neck: trachea midline, no thyromegaly Respiratory: normal respiratory effort, lungs clear to auscultation Cardiovascular: RRR, no murmur, no edema Gastrointestinal (Abdomen): normal bowel sounds, soft, nontender, no hepatosplenomegaly Musculoskeletal: no cyanosis or clubbing, extremities motor strength 5/5 Skin: + wound (open wound, clear drainage, surrounding skin, left foot) and + scar (significant scar along left medial thigh and medial knee, left szymanski) Neurologic: PERRL, EOMI, accommodation nl, no face palsy, no dysarthria deep tendon reflexes 2+ bilaterally Motor/Sensory: + sensory deficit (decreased pain and light touch sensation feet bilaterally) Psychiatric: A+Ox3, euthymic affect Lymphatic: no cervical or axillary lymphadenopathy Results & Data Vital Signs (Past 12 Hours) Vital Signs Temp Pulse Resp BP Pulse Ox 02/05/19 15:35 36.7 C 75 18 110/67 96 Laboratory Results Laboratory Results - last 24 hr 02/05/19 02/05/19 02/05/19 16:30 16:43 16:43 WBC 6.71 RBC 3.98 L Hgb 13.2 L Hct 38.0 L MCV 95.5 MCH 33.2 MCHC 34.7 RDW Std Deviation 43.5 RDW Coeff of Martin 12.6 Plt Count 211 MPV 10.5 H Immature Gran % (Auto) 0.4 Neut % (Auto) 78.8 Lymph % (Auto) 10.3 Johnson % (Auto) 9.2 Eos % (Auto) 1.0 Baso % (Auto) 0.3 Immature Gran # (Auto) 0.03 H Neut # (Auto) 5.28 Lymph # (Auto) 0.69 L Johnson # (Auto) 0.62 H Eos # (Auto) 0.07 Baso # (Auto) 0.02 PT INR Sodium 139 Potassium 4.4 Chloride 105 Carbon Dioxide 26 Anion Gap 7.0 BUN 32 H Creatinine 1.20 Est Cr Clr Drug Dosing Not Reportable Est GFR ( Amer) 69.1 Est GFR (Non-Af Amer) 59.6 BUN/Creatinine Ratio 26.4 H Glucose 252 H POC Glucose 268 H Calcium 9.8 Total Bilirubin 0.3 AST 17 ALT 25 Alkaline Phosphatase 67 Total Protein 7.5 Albumin 3.5 Globulin 4.0 Albumin/Globulin Ratio 0.9 02/05/19 02/05/19 16:43 16:43 WBC RBC Hgb Hct MCV MCH MCHC RDW Std Deviation RDW Coeff of Martin Plt Count MPV Immature Gran % (Auto) Neut % (Auto) Lymph % (Auto) Johnson % (Auto) Eos % (Auto) Baso % (Auto) Immature Gran # (Auto) Neut # (Auto) Lymph # (Auto) Johnson # (Auto) Eos # (Auto) Baso # (Auto) PT 10.3 INR 1.0 Sodium Potassium Chloride Carbon Dioxide Anion Gap BUN Creatinine Cancelled Est Cr Clr Drug Dosing Cancelled Est GFR ( Amer) Cancelled Est GFR (Non-Af Amer) Cancelled BUN/Creatinine Ratio Glucose POC Glucose Calcium Total Bilirubin AST ALT Alkaline Phosphatase Total Protein Albumin Globulin Albumin/Globulin Ratio Code Status & VTE Plan Code Status full code VTE Prophylaxis Plan VTE Prophylaxis will be ordered: Yes PG Care Time/CCT Total # of Minutes Spent Total Time Spent with Patient: Total time spent is greater than 50% in coordination of care (as documented) at patient's floor/unit and/or counseling patient:
[2019-02-05 17:06] LABS: Prothrombin Time 10.3 Seconds (9.0-12.0)
[2019-02-05 17:14] LABS: Alanine Aminotransferase 25 U/L (12-78); Albumin Level 3.5 gm/dl (3.4-5.0); Aspartate Aminotransferase 17 U/L (15-37); BUN Creatinine Ratio 26.4 (10-20); Blood Urea Nitrogen 32 mg/dl (7-18); Calcium 9.8 mg/dl (8.5-10.1); Carbon Dioxide 26 mmol/L (21-32); Chloride 105 mmol/L (98-107); Est GFR (African American) 69.1; Est GFR (Non-African American) 59.6; Glucose 252 mg/dl (70-99); Potassium 4.4 mmol/L (3.5-5.1); Sodium 139 mmol/L (136-145)
[2019-02-05 17:17] LABS: Albumin Globulin Ratio 0.9 (0.9-2); Alkaline Phosphatase 67 U/L (45-117); Bilirubin,Total 0.3 mg/dl (0.2-1); Total Protein 7.5 gm/dl (6.4-8.2)
[2019-02-05] MEDS: INSULIN ASPART 100 UNITS/ML 3 ML PEN SC SCH ×2 (17:43→20:28)
[2019-02-05] MEDS: GABAPENTIN 100 MG CAP PO SCH (17:57)
[2019-02-05] MEDS: PATIENT'S HEIGHT AND/OR WEIGHT NEEDED SCH ×2 (17:57→18:12)
[2019-02-05] MEDS ORDERED: PIPERACILLIN/TAZOBACTAM 3.375 GM in DEXTROSE 5% 100 ML IV ONE (18:15)
[2019-02-05] MEDS ORDERED: VANCOMYCIN HCL 2,500 MG in SODIUM CHLORIDE 0.9% 500 ML IV SCH (18:15)
--- NOTE | 2019-02-05 19:44 | Pharmacy Report ---
Pharmacy Abx Initial Consult - Date of Service February 05, 2019 - Pharmacy Dosing Scope Date of Consult: 02/05/19 Consultation requested by: Dr. Newman Pharmacy is consulted to initiate vancomycin and Zosyn IV dosing therapy, order appropriate labs and adjust drug dose/frequency. - Subjective The patient is a 74 year old M admitted on 02/05/19 15:21. - Objective Height: 6 ft 4 in Weight: 99 kg Vital Signs (Past 12hrs): Vital Signs Temp Pulse Pulse Resp BP BP Pulse Ox 02/05/19 19:00 36.8 C 83 18 129/69 95 02/05/19 15:35 36.7 C 75 18 110/67 96 Lab Results (24hrs): Laboratory Tests (24 Hours) 02/05/19 02/05/19 02/05/19 16:43 16:43 16:43 WBC 6.71 Neut # (Auto) 5.28 Creatinine Cancelled 1.20 Est Cr Clr Drug Dosing Cancelled Not Reportable Micro Results: 02/05/19 16:43 Aerobic Blood Culture - Pending Blood Anaerobic Blood Culture - Pending 02/05/19 16:44 Aerobic Blood Culture - Pending Blood Anaerobic Blood Culture - Pending - Assessment & Plan Assessment 74 year old M admitted directly from Dr. Luna's office for a diabetic foot infection, at site of prior 2nd toe amputation. PMH significant for DM and a history of sepsis with resulting KARYN and requiring dialysis 2 years ago. Kidneys had recovered and patient was then taken off of dialysis. Vancomycin and Zosyn are being initiated for the diabetic foot infection. Will need to be cautious due to his history of KARYN and HD and with the nephrotoxic co mbo of vancomycin and Zosyn on board. Plan Vancomycin IV * Estimated PK Parameters: Vd 0.7 L/kg, Randy 0.06 hr-1, t1/2 11.5 hr * Loading dose: 2500 mg (25 mg/kg) * Maintenance dose: 1250 mg IV (12.6 mg/kg) every 12 hours * Goal trough level: 15 to 20 mcg/mL for now until osteo ruled out * Trough level ordered for 02/06/19 prior to the 3rd dose. Note: this will be PRIOR to steady state but want to monitor closely due to above Piperacillin/tazobactam * 3.375 g bolus administered over 30 minutes, then 3.375 g IV extended infusion every 8 hours for CrCl greater than 20 mL/min Pharmacy will continue to follow and will adjust dose/frequency as necessary. Thank you.
[2019-02-05] MEDS ORDERED: IOVERSOL 100ml IV PRN (20:04)
[2019-02-05] MEDS: GABAPENTIN 300 MG CAP PO SCH (20:28)
[2019-02-05] MEDS: INSULIN DETEMIR FLEXPEN/FLEX TOUCH 100 UNITS/ML 3ML SC SCH (20:28)
[2019-02-05] MEDS: HEPARIN SOD 5,000 UNIT/0.5 ML VIAL SQ SCH (20:29)
--- NOTE | 2019-02-05 22:26 | CT Scan Report ---
CT SCAN OF THE LEFT FOOT WITH IV CONTRAST CLINICAL HISTORY: Left foot infection. Clinical concern for abscess. COMPARISON STUDY: Radiographs of the left foot dated 06/16/2009. TECHNIQUE: CT scan of the left foot is performed from the distal tibia and fibula to the base of the foot. Images are reviewed in the axial, sagittal, and coronal planes. IV contrast was administered wi thout complication. Note that interpretation is significantly suboptimal without current plain film c orrelate. A dose lowering technique was utilized adhering to the principles of ALARA. CT DOSE: 177.22 mGy.cm FINDINGS: The skeletal structures are heterogeneously osteopenic. No acute fracture is identified. Th ere is postoperative change from fusion at the first metatarsophalangeal joint. There is incomplete b sallie fusion. Lucency around one of the cortical lag screws suggests loosening (axial image #201). The re has also been osteotomy with postoperative change seen in the third and fourth metatarsal heads. M oderate osteoarthritic change is seen throughout the forefoot and midfoot. There is a cutaneous ulcer ation identified along the plantar aspect of the foot at the first metatarsophalangeal joint. There i s significant superficial and deep soft tissue edema and fluid at this site. No organized/peripherall y enhancing fluid collection is seen to suggest abscess. Milder soft tissue edema is seen throughout the remainder of the forefoot and midfoot. There is nonspecific bony irregularity identified along th e plantar aspect of the fused first metatarsophalangeal joint. Question bony erosion involving the ba se of the first proximal phalanx, best seen on sagittal image #16. No periostitis is identified. Dege nerative spurring is seen along the dorsal last of the tarsal bones. The ankle joint appears maintain ed. There are large dorsal and plantar calcaneal enthesophytes. The Achilles tendon is intact as imag ed. IMPRESSION: 1. There is a cutaneous ulceration identified along the plantar aspect of the foot at the level of th e first metatarsophalangeal joint 2. There is evidence of significant surrounding cellulitis with subcutaneous and deep soft tissue inf lammation and fluid. The appearance is typical for cellulitis. No organized fluid collection is seen to indicate abscess. 3. No acute fracture is seen. 4. There has been fusion of the first metatarsophalangeal joint. Therapeutic hardware appears intact. There is incomplete bony fusion at this joint. 5. There is lucency around a cortical lag screw at the fused first MTP which suggests loosening. 6. There is bony irregularity identified along the plantar aspect of the fused first metatarsophalang eal joint, with questionable bony erosion at the base of the first proximal phalanx. No periostitis i s clearly seen. Acute versus chronic osteomyelitis would be impossible to exclude and clinical correl ation will be essential. 7. Additional findings as above. Dictated: 02/05/2019 8:22 PM Transcribed: 02/05/2019 10:10 PM Beryl [id number] [email or web address] Electronically signed by: Galindo Fenton M.D. 02/05/2019 10:25 PM
[2019-02-05] MEDS: PIPERACILLIN/TAZOBACTAM 3.375 GM in DEXTROSE 5% 100 ML IV SCH (23:25)
--- NOTE | 2019-02-06 00:52 | Ultrasound Report ---
ULTRASOUND BILATERAL LOWER EXTREMITY ARTERIAL; ANKLE-BRACHIAL INDICES CLINICAL HISTORY: Foot ulcer. COMPARISON STUDY: No priors. TECHNIQUE: Real-time, grayscale, and color Doppler sonography of the arteries of the right and left l ower extremity is performed from the inguinal crease to the foot. Ankle-brachial indices are assessed . FINDINGS: Ankle-brachial indices: Right brachial pressure measures 147 and left brachial pressure measures 139. Pressures in the right posterior tibial artery measure 134 for an SAV of 0.91, and pressures in the right dorsalis pedis measure 141 for an SAV of 0.96. Pressures in the left posterior tibial artery me asure 92 for an SAV of 0.63, and pressures in the left dorsalis pedis measure 135 for an SAV of 0.92. Right lower extremity: Moderate atherosclerotic plaque is identified throughout the right lower extre mity arteries. There are triphasic arterial waveforms in the right common femoral artery with velocit ies measuring up to 94 cm/s. The profunda femoris artery is patent with velocities measuring up to 81 cm/s. Triphasic waveforms are seen throughout the right superficial femoral artery with velocities m easuring up to 144 cm/s. Triphasic waveforms are seen in the popliteal artery with velocities measuri ng up to 73 cm/s. There is three-vessel run-off to the foot. Velocities in the posterior tibial arter y measure up to 46 cm/s. Reversal of flow is suggested in the distal posterior tibial artery. Velocit ies in the peroneal artery measure up to 64 cm/s, and velocities in the anterior tibial artery measur e up to 91 cm/s. The dorsalis pedis artery is patent with velocities measuring up to 36 cm/s. Left lower extremity: Moderate atherosclerotic plaque is identified throughout the arteries of the le ft lower extremity. There are triphasic arterial waveforms in the left common femoral artery with aaliyah ocities measuring up to 87 cm/s. The profundus femoris artery is patent with velocities measuring up to 91 cm/s. There are triphasic to biphasic arterial waveforms seen throughout the proximal to mid po rtions of the superficial femoral artery with velocities measuring up to 156 cm/s. There is a bypass graft extending from the distal left superficial femoral artery to the calf. The graft is patent with velocities measuring up to 115 cm/s. The proximal [place] popliteal artery is patent with biphasic fl ow and velocities measuring up to 23 cm/s. The distal [place] popliteal artery appears thrombosed. The posterior tibial artery is patent with velocities measuring up to 159 cm/s. Flow becomes nearly mono phasic in the distal posterior tibial artery. The peroneal artery is patent with velocities measuring up to 99 cm/s. The anterior tibial artery is patent with velocities measuring up to 39 cm/s. Wavefor ms are biphasic. The dorsalis pedis artery is patent with velocities measuring up to 50 cm/s. IMPRESSION: 1. There is no sonographic evidence of high-grade stenosis or focal vessel occlusion throughout the a rteries of the right lower extremity. 2. There is thrombosis of the distal left popliteal artery. 3. A bypass graft from the distal superficial femoral artery to the calf in the left lower extremity is patent. 4. There is three-vessel runoff to both feet. 5. Ankle-brachial indices as above. Dictated: 02/05/2019 10:25 PM Transcribed: 02/05/2019 11:04 PM Beryl [id number] [email or web address] Electronically signed by: Galindo Fenton M.D. 02/06/2019 12:49 AM
[2019-02-06] MEDS: HEPARIN SOD 5,000 UNIT/0.5 ML VIAL SQ SCH ×3 (06:23→21:08)
[2019-02-06] MEDS: VANCOMYCIN HCL 1,250 MG in SODIUM CHLORIDE 0.9% 250 ML IV SCH ×3 (06:23→19:39)
[2019-02-06 07:25] LABS: Creatinine Clr Calc Pharmacy 71.5 ml/min; Est GFR (African American) 74.3; Est GFR (Non-African American) 64.1
[2019-02-06] MEDS: INSULIN ASPART 100 UNITS/ML 3 ML PEN SC SCH ×4 (09:14→20:20)
[2019-02-06] MEDS: PIPERACILLIN/TAZOBACTAM 3.375 GM in DEXTROSE 5% 100 ML IV SCH ×2 (09:20→17:36)
[2019-02-06] MEDS: AMLODIPINE BESYLATE 5 MG TAB PO SCH (09:20)
[2019-02-06] MEDS: ATENOLOL 50 MG TABLET PO SCH (09:21)
[2019-02-06] MEDS: PANTOprazole 40 MG TAB PO SCH (09:21)
[2019-02-06] MEDS: VALSARTAN 80 MG TAB PO SCH (09:21)
--- NOTE | 2019-02-06 09:27 | Hospitalist Progress Note ---
Date of Service February 06, 2019 Assessment & Plan (1) Diabetic ulcer of foot associated with diabetes mellitus due to underlying condition, with fat layer exposed: abrupt onset of left foot ulcer, just opened the past few days at the site of prior 2nd toe amputation, s/p hardware placed in metatarsals for support some chills but no fever, decreased appetite WBC normal, no fever CT foot shows cellulitis and wound, possible bone involvement of 1st metatarsal near hardware awaiting recommendations from Dr. 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, this is per patient fem-pop bypass was done at [facility] he gets routine dopplers every 6 months to assess the bypass arterial doppler shows a thrombosis in popliteal artery but he has intact bypass from superficial femoral to the calf holding aspirin and Plavix in anticipation of surgery (4) HTN (hypertension): BP stable at 128/67 continue Valsartan, Atenolol, Norvasc (5) CAD (coronary artery disease): heart attack 23 years ago, never required stent since that time he says that he has never had angina hold aspirin for time being in anticipation of surgery (6) Dyslipidemia: hold on Statin for now Subjective patient doing well, no fever or chills, no pain in left foot eating well, said that breakfast was delicious had a bowel movement discussed results of CT of the foot, evidence of bone involvement, could indicated osteomyelitis, adjacent to hardware discussed that surgical plan will be up to Dr. Luna, unsure of what he will recommend discussed that he may need to take out hardware with concerns for deep infection patient said that this will be 7th surgery on the left foot he asked at what point do you consider amputating the foot I told him that he could discuss this with Dr. Luna will get CXR and EKG for pre op work up Review of Systems Review of Systems: All systems reviewed & are unremarkable except as noted in HPI & below Physical Exam Constitutional: WD/WN, vitals as above Eyes: PERRL, conjunctivae normal, anicteric sclerae ENMT: external ear and nose normal, oropharynx normal Neck: trachea midline, no thyromegaly Respiratory: normal respiratory effort, lungs clear to auscultation Cardiovascular: RRR, no murmur, no edema Gastrointestinal (Abdomen): normal bowel sounds, soft, nontender, no hep atosplenomegaly Musculoskeletal: no cyanosis or clubbing, extremities motor strength 5/5 Skin: + wound (open wound, clear drainage, surrounding skin, left foot) and + scar (significant scar along left medial thigh and medial knee, left szymanski) Neurologic: PERRL, EOMI, accommodation nl, no face palsy, no dysarthria deep tendon reflexes 2+ bilaterally Motor/Sensory: + sensory deficit (decreased pain and light touch sensation feet bilaterally) Psychiatric: A+Ox3, euthymic affect Lymphatic: no cervical or axillary lymphadenopathy Results & Data Vital Signs (Past 12 Hours) Vital Signs Temp Pulse Resp BP BP Pulse Ox 02/06/19 07:42 37.0 C 62 18 128/67 92 02/05/19 23:10 36.9 C 63 20 113/70 96 Laboratory Results Laboratory Results - last 24 hr 02/05/19 02/05/19 02/05/19 16:30 16:43 16:43 WBC 6.71 RBC 3.98 L Hgb 13.2 L Hct 38.0 L MCV 95.5 MCH 33.2 MCHC 34.7 RDW Std Deviation 43.5 RDW Coeff of Martin 12.6 Plt Count 211 MPV 10.5 H Immature Gran % (Auto) 0.4 Neut % (Auto) 78.8 Lymph % (Auto) 10.3 [place] % (Auto) 9.2 Eos % (Auto) 1.0 Baso % (Auto) 0.3 Immature Gran # (Auto) 0.03 H Neut # (Auto) 5.28 Lymph # (Auto) 0.69 L [place] # (Auto) 0.62 H Eos # (Auto) 0.07 Baso # (Auto) 0.02 PT INR Sodium 139 Potassium 4.4 Chloride 105 Carbon Dioxide 26 Anion Gap 7.0 BUN 32 H Creatinine 1.20 Est Cr Clr Drug Dosing Not Reportable Est GFR ( Amer) 69.1 Est GFR (Non-Af Amer) 59.6 BUN/Creatinine Ratio 26.4 H Glucose 252 H POC Glucose 268 H Calcium 9.8 Total Bilirubin 0.3 AST 17 ALT 25 Alkaline Phosphatase 67 Total Protein 7.5 Albumin 3.5 Globulin 4.0 Albumin/Globulin Ratio 0.9 02/05/19 02/05/19 02/05/19 16:43 16:43 19:51 WBC RBC Hgb Hct MCV MCH MCHC RDW Std Deviation RDW Coeff of Martin Plt Count MPV Immature Gran % (Auto) Neut % (Auto) Lymph % (Auto) [place] % (Auto) Eos % (Auto) Baso % (Auto) Immature Gran # (Auto) Neut # (Auto) Lymph # (Auto) [place] # (Auto) Eos # (Auto) Baso # (Auto) PT 10.3 INR 1.0 Sodium Potassium Chloride Carbon Dioxide Anion Gap BUN Creatinine Cancelled Est Cr Clr Drug Dosing Cancelled Est GFR ( Amer) Cancelled Est GFR (Non-Af Amer) Cancelled BUN/Creatinine Ratio Glucose POC Glucose 233 H Calcium Total Bilirubin AST ALT Alkaline Phosphatase Total Protein Albumin Globulin Albumin/Globulin Ratio 02/06/19 02/06/19 06:05 07:38 WBC RBC Hgb Hct MCV MCH MCHC RDW Std Deviation RDW Coeff of Martin Plt Count MPV Immature Gran % (Auto) Neut % (Auto) Lymph % (Auto) [place] % (Auto) Eos % (Auto) Baso % (Auto) Immature Gran # (Auto) Neut # (Auto) Lymph # (Auto) [place] # (Auto) Eos # (Auto) Baso # (Auto) PT INR Sodium Potassium Chloride Carbon Dioxide Anion Gap BUN Creatinine 1.13 Est Cr Clr Drug Dosing 71.5 Est GFR ( Amer) 74.3 Est GFR (Non-Af Amer) 64.1 BUN/Creatinine Ratio Glucose POC Glucose 112 H Calcium Total Bilirubin AST ALT Alkaline Phosphatase Total Protein Albumin Globulin Albumin/Globulin Ratio Diagnostic Findings CT LEFT FOOT WITH IV CONTRAST IMPRESSION: 1. There is a cutaneous ulceration identified along the plantar aspect of the foot at the level of the first metatarsophalangeal joint 2. There is evidence of significant surrounding cellulitis with subcutaneous and deep soft tissue inflammation and fluid. The appearance is typical for cellulitis. No organized fluid collection is seen to indicate abscess. 3. No acute fracture is seen. 4. There has been fusion of the first metatarsophalangeal joint. Therapeutic hardware appears intact. There is incomplete bony fusion at this joint. 5. There is lucency around a cortical lag screw at the fused first MTP which suggests loosening. 6. There is bony irregularity identified along the plantar aspect of the fused first metatarsophalangeal joint, with questionable bony erosion at the base of the first proximal phalanx. No periostitis is clearly seen. Acute versus chronic osteomyelitis would be impossible to exclude and clinical correlation will be essential. 7. Additional findings as above. ARTERIAL DOPPLER LOWER EXTREMITIES IMPRESSION: 1. There is no sonographic evidence of high-grade stenosis or focal vessel occlusion throughout the arteries of the right lower extremity. 2. There is thrombosis of the distal left popliteal artery. 3. A bypass graft from the distal superficial femoral artery to the calf in the left lower extremity is patent. 4. There is three-vessel runoff to both feet. 5. Ankle-brachial indices as above. Medications Administered Current Inpatient Medications Acetaminophen (Tylenol) 650 mg PO Q4H PRN PRN Reason: pain/fever Stop: 03/07/19 16:04 Amlodipine Besylate (Norvasc) 5 mg PO DAILY [facility] Stop: 03/08/19 08:59 Atenolol (Tenormin) 100 mg PO QAM [facility] Stop: 03/08/19 08:59 Gabapentin (Neurontin) 200 mg PO DAILY@1400 [facility] Stop: 03/07/19 17:14 Last Admin: 02/05/19 17:57 Dose: Not Given Documented by: Gabapentin (Neurontin) 300 mg PO HS ALVARO Stop: 03/07/19 20:59 Last Admin: 02/05/19 20:28 Dose: Not Given Documented by: Heparin Sodium (Porcine) (Heparin Sodium (Porcine)) 5,000 units SQ Q8 [facility] Stop: 03/07/19 21:59 Last Admin: 02/06/19 06:23 Dose: 5,000 units Documented by: Piperacillin Sod/Tazobactam (Sod 3.375 gm/ Dextrose) 115 mls @ 28.75 mls/hr IV Q8H [facility]; Protocol Stop: 02/16/19 00:00 Last Infusion: 02/06/19 03:25 Dose: Infused Documented by: Vancomycin HCl 1,250 mg/ (Sodium Chloride) 275 mls @ 125 mls/hr IV Q12H ALVARO Stop: 02/15/19 17:59 Last Infusion: 02/06/19 09:13 Dose: Infused Documented by: Insulin Aspart (Novolog Flexpen) 0 units SC ACHS ALVARO Stop: 03/07/19 20:59 Last Admin: 02/05/19 20:28 Dose: 9 units Documented by: Insulin Detemir (Levemir Flextouch) 50 units SC HS ALVARO Stop: 03/07/19 20:59 Last Admin: 02/05/19 20:28 Dose: 50 units Documented by: Ioversol (Optiray 320 100ml) 94 ml IV ONCE PRN PRN Reason: Interaction Checking Stop: 02/09/19 20:03 Last Admin: 02/05/19 20:05 Dose: 94 ml Documented by: Miscellaneous Information (Consult) 1 ea N/A UD PRN PRN Reason: Consult Stop: 03/07/19 16:04 Miscellaneous Information (Consult) 1 ea N/A UD PRN PRN Reason: Consult Stop: 03/07/19 17:00 Ondansetron HCl (Zofran) 4 mg IV Q6H PRN PRN Reason: Nausea Stop: 03/07/19 16:04 Pantoprazole Sodium (Protonix) 40 mg PO DAILY ALVARO Stop: 03/08/19 08:59 Valsartan (Diovan) 160 mg PO DAILY [facility] Stop: 03/08/19 08:59 PG Care Time/CCT Total # of Minutes Spent Total Time Spent with Patient: Total time spent is greater than 50% in coordination of care (as documented) at patient's floor/unit and/or counseling patient:
--- NOTE | 2019-02-06 10:23 | XRay Report ---
XR chest 2V routine HISTORY: 74 years-old Male Pre op preoperative exam. No acute chest complaints COMPARISON: Chest radiograph 02/07/2018 and 05/07/2011. TECHNIQUE: PA and lateral views of the chest FINDINGS: Cardiomediastinal and hilar silhouettes are unchanged. Mild tortuosity about the descending thoracic aorta. No pneumothorax, pleural effusion, focal airspace consolidation or overt pulmonary edema. Dege nerative changes are noted about the shoulders and spine. 60% anterior endplate compression deformity of a lower thoracic segment, likely T12 is new from 2010. Healed remote bilateral rib fractures. IMPRESSION: No acute cardiopulmonary abnormality. The above report was generated using voice recognition software. It may contain grammatical, syntax o r spelling errors. Electronically signed by: Tr Zavala M.D. 02/06/2019 10:22 AM
--- NOTE | 2019-02-06 11:45 | Consultation ---
Date of Consultation February 06, 2019 Assessment & Plan (1) History of femoropopliteal bypass: Pt with hx of LLE fem-pop vein BPG for pop art aneurysm repair at [facility] by Dr Zazueta. BPG appears patent with good runoff. No indications for vascular surgical intervention at this time. Recommend orthopedics proceed with planned surgery. Patient was seen, examined, and chart reviewed. Agree with exam and treatment plan of the Vascular PA. 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 Pt states he underwent LLE pop aneurysm repair with BPG using vein at [facility] by Dr Zazueta about 2 years ago. His L foot had hammer toe surgery in [place] that didn't heal correctly, and pt requested appt with Dr Luna, where he has been following for his L foot since. Pt states he had a sunflower seed in his shoe one day last week that developed into his current wound. Made an appt with Dr Luna and was sent here d/t infection. Does have hardware in L foot per pt. Pt denies significant pain or fever at home. Denies nausea/vomiting. Denies PACHECO, chills, chest pain, abd pain, rest pain, claudication, other complaints. Arterial US demonstrates widely patent LLE BPG and 3 vessel runoff to foot. Allergies Allergy/AdvReac Type Severity Reaction Status Date / Time No Known Allergies Allergy Unknown ` Verified 06/15/09 16:25 niacin AdvReac Intermediate SEVERE Verified 08/05/09 04:13 FLUSHING AND ELEV.BSG lovastatin AdvReac Mild SEVERE GI Verified 08/05/09 04:13 simvastatin AdvReac Mild SEVERE GI Verified 08/05/09 04:13 Home Medications Home Medications Medication Instructions Recorded Confirmed Type amlodipine 10 mg PO DAILY 02/05/19 02/05/19 History aspirin [Aspir-Low] 81 mg PO DAILY 02/05/19 02/05/19 History atenolol 100 mg PO DAILY 02/05/19 02/05/19 History clopidogrel 75 mg PO DAILY 02/05/19 02/05/19 History gemfibrozil 600 mg PO BID 02/05/19 02/05/19 History hydrochlorothiazide 25 mg PO DAILY 02/05/19 02/05/19 History insulin detemir U-100 [Levemir 50 unit SUBCUT DAILY 02/05/19 02/05/19 History U-100 Insulin] insulin lispro [Humalog KwikPen See Rx Instructions .ROUTE .COMPLEX 02/05/19 02/05/19 History Insulin] metformin 1,000 mg PO BID 02/05/19 02/05/19 History multivitamin 1 tab 02/05/19 History nitroglycerin [Nitrostat] See Rx Instructions .ROUTE .COMPLEX 02/05/19 02/05/19 History olmesartan 40 mg PO DAILY 02/05/19 02/05/19 History pantoprazole 40 mg PO DAILY 02/05/19 02/05/19 History rosuvastatin 40 mg PO DAILY 02/05/19 02/05/19 History Patient History Medical History Anemia CAD (coronary artery disease) distant OR Hypertension Insulin dependent diabetes mellitus Peripheral vascular disease Surgical History History of femoropopliteal bypass Hx of CABG Hx of hernia repair ?aspiration pneumonia post-operatively? Infection of knee I&D Social History Preferred Language: Malaysian Communication Ability: Effective Director Life Insurance Required: No Beliefs That Will Affect Care: Latter-Day Latter-Day Beliefs: Cheondoism marital status: Current Living Situation: Spouse Feels Safe at Home: Yes Smoking Status: Former smoker Second Hand Exposure: No ; Hx Alcohol Use: Yes Alcohol type: beer Hx Substance Use: No Review of Systems Review of Systems: All systems reviewed & are unremarkable except as noted in HPI & below Physical Exam Constitutional: WD/WN, vitals as above well developed, well nourished, + obese, healthy appearing, well groomed, cooperative, comfortable and + in distress; not combative Eyes: PERRL, conjunctivae normal, anicteric sclerae EOM intact bilaterally ENMT: external ear and nose normal, oropharynx normal Ears: + hearing impairment Nose: no nasal discharge Throat: no posterior oropharynx abnormality Neck: trachea midline, no thyromegaly no tracheal deviation, no neck crepitus and neck nontender Respiratory: normal respiratory effort, lungs clear to auscultation able to speak in complete sentences; does not use accessory muscles and no cough Auscultation: lungs clear to auscultation bilaterally and + diminished lung sounds; no rhonchi and no wheezes Cardiovascular: RRR, no murmur, no edema Heart Sounds: no gallop and no murmur Vessels: femoral pulses present, posterior tibial pulses present, dorsalis pedis pulses present, brachial pulses present and radial pulses present; no carotid bruit and no femoral bruit Extremities: normal capillary refill and + edema (L foot); no varicosities Chest (Breasts): Chest: normal inspection of chest Gastrointestinal (Abdomen): normal bowel sounds, soft, nontender, no hepatosplenomegaly Inspection/Auscultation: abdomen normal to inspection and normal bowel sounds; abdomen not distended and no abdominal edema Percussion/Palpation: abdomen soft; abdomen nontender, no guarding, abdomen not rigid and no abdominal mass Musculoskeletal: no cyanosis or clubbing, extremities motor strength 5/5 Head/Neck/Chest: normocephalic, head atraumatic and neck supple Extremities: extremities normal to inspection, strength 5/5 throughout and + amputation noted (L 2nd toe); full ROM of extremities Skin: no rashes, warm and dry normal turgor, + ulcer, + induration, + wound (Ulcer L plantar foot) and + erythema; no rashes, no mottling and no pallor Neurologic: moves all extremities and awake; no focal motor deficits and not confused Speech / Cognition: no expressive aphasia and no receptive aphasia Motor/Sensory: no tremor and no sensory deficit Cranial Nerves: EOM intact bilaterally and normal facial strength Psychiatric: A+Ox3, euthymic affect Orientation: cooperative Apperance: appropriately dressed, appropriately groomed and appeared stated age Affect: + depressed affect Thought Process: goal directed thought process, linear/logical thought process and clear/coherent thought process Cognition: recent memory grossly intact, remote memory grossly intact, attention grossly intact and language grossly intact Estimated Intelligence: average estimated intelligence Results & Data Vital Signs (Past 12 Hours) Vital Signs Temp Pulse Resp BP Pulse Ox 02/06/19 07:42 37.0 C 62 18 128/67 92
--- NOTE | 2019-02-06 13:57 | Orthopedic Consultation ---
Date of Consultation February 06, 2019 History of Present Illness Reason for Consultation: Left foot wound/ulcer Attending Physician: Royer Newman DO Allergies Allergy/AdvReac Type Severity Reaction Status Date / Time No Known Allergies Allergy Unknown ` Verified 06/15/09 16:25 niacin AdvReac Intermediate SEVERE Verified 08/05/09 04:13 FLUSHING AND ELEV.BSG lovastatin AdvReac Mild SEVERE GI Verified 08/05/09 04:13 simvastatin AdvReac Mild SEVERE GI Verified 08/05/09 04:13 Home Medications Home Medications Medication Instructions Recorded Confirmed Type amlodipine 10 mg PO DAILY 02/05/19 02/05/19 History aspirin [Aspir-Low] 81 mg PO DAILY 02/05/19 02/05/19 History atenolol 100 mg PO DAILY 02/05/19 02/05/19 History clopidogrel 75 mg PO DAILY 02/05/19 02/05/19 History gemfibrozil 600 mg PO BID 02/05/19 02/05/19 History hydrochlorothiazide 25 mg PO DAILY 02/05/19 02/05/19 History insulin detemir U-100 [Levemir 50 unit SUBCUT DAILY 02/05/19 02/05/19 History U-100 Insulin] insulin lispro [Humalog KwikPen See Rx Instructions .ROUTE .COMPLEX 02/05/1902/16 History Insulin] metformin 1,000 mg PO BID 02/05/19 02/05/19 History multivitamin 1 tab 02/05/19 History nitroglycerin [Nitrostat] See Rx Instructions .ROUTE .COMPLEX 02/05/19 02/05/19 History olmesartan 40 mg PO DAILY 02/05/19 02/05/19 History pantoprazole 40 mg PO DAILY 02/05/19 02/05/19 History rosuvastatin 40 mg PO DAILY 02/05/19 02/05/19 History Patient History Social History Preferred Language: Bahamian Communication Ability: Effective [place] Driver Required: No Beliefs That Will Affect Care: Restorationist Restorationist Beliefs: Anabaptism marital status: Current Living Situation: Spouse Feels Safe at Home: Yes Smoking Status: Former smoker Second Hand Exposure: No ; Hx Alcohol Use: Yes Alcohol type: beer Hx Substance Use: No Results & Data Vital Signs (Past 12 Hours) Vital Signs Temp Pulse Resp BP Pulse Ox 02/06/19 07:42 37.0 C 62 18 128/67 92
[2019-02-06] MEDS: GABAPENTIN 100 MG CAP PO SCH ×2 (14:37→14:42)
[2019-02-06] MEDS ORDERED: VANCOMYCIN TROUGH ONE (17:30)
--- NOTE | 2019-02-06 19:51 | Pharmacy Report ---
Pharmacy Abx Dose Short Note - Date of Service February 06, 2019 - Assessment & Plan Assessment 74 year old M receiving vancomycin and zosyn for treatment of diabetic wound infection (foot CT with questionable bony involvement) Day # 2 of antimicrobial therapy. Plan Vancomycin * Trough level came back therapeutic at 15 mcg/ml (goal 15-20 mcg/ml - goal closer to 20 mcg/ml for bone infection). Not currently at steady state with vancomycin, only received two doses of vancomycin so far * Patient accumulating vancomycin quicker then expected, will extend dosing interval to Q14 hrs to ensure trough at steady state remains 15-20 mcg/ml * Patient's renal function remains stable at ~1.2 mg/dL (appears baseline closer to 0.9 mg/dL based upon previous admissions) * Blood cultures x 2 are no growth, wound culture still pending * Would recommend rechecking trough in next 2-3 days, or sooner if renal function changes Pharmacy will continue to follow and will adjust dose/frequency as necessary. Thank you.
[2019-02-06] MEDS: GABAPENTIN 300 MG CAP PO SCH (21:02)
[2019-02-06] MEDS: INSULIN DETEMIR FLEXPEN/FLEX TOUCH 100 UNITS/ML 3ML SC SCH (21:04)
[2019-02-07] MEDS: PIPERACILLIN/TAZOBACTAM 3.375 GM in DEXTROSE 5% 100 ML IV SCH ×4 (00:20→23:33)
--- NOTE | 2019-02-07 01:58 | Consultation Report ---
DATE OF CONSULTATION: 02/06/2019 ORTHOPEDIC CONSULTATION HISTORY OF PRESENT ILLNESS: The patient is a 74-year-old white male with a history of diabetes mellitus and an ulcer on his foot which he states he saw Dr. Luna in the office in [place] yesterday. He states that he began having increased drainage from the ulcer over the last few days and then he began having increased redness of the great toe. He denies any chills or fevers or nausea or vomiting. He did go to the office and see Dr. Luna and after he was seen in the office and had a small debridement done, Dr. Luna felt the patient required I.V. antibiotics. He discussed the case with [facility] hospitalist service and they admitted him for I.V. antibiotics with the plan of possible irrigation and debridement if needed. The patient is currently sitting up in bed, awake and alert and oriented, in no acute distress, pleasant and cooperative. He states that his foot is feeling much better since starting the antibiotics last night and has no new complaints. PAST MEDICAL HISTORY: Diabetes mellitus type 2 with peripheral neuropathy, macrovascular complications of peripheral vascular disease and coronary artery disease, peripheral vascular disease, hypertension, coronary artery disease with myocardial infarction 23 years ago and dyslipidemia. The patient did have a history of a septic shock and acute renal failure requiring temporary hemodialysis. PAST SURGICAL HISTORY: I and D left knee prepatellar bursa, fusion of the right first MTP joint, left total knee arthroplasty, grafting of left lower extremity due to popliteal aneurysm and second toe amputation. FAMILY HISTORY: Father due to complications of alcohol abuse and cirrhosis. Mother due to diabetes mellitus type 2 and heart disease. SOCIAL HISTORY: Prior smoker and drinks occasionally. ALLERGIES: NIACIN, LOVASTATIN AND SIMVASTATIN. MEDICATIONS: Amlodipine 10 mg p.o. daily, aspirin 81 mg p.o. daily, atenolol 100 mg p.o. daily, clopidogrel 75 mg p.o. daily, gemfibrozil 600 mg p.o. b.i.d., hydrochlorothiazide 25 mg p.o. daily, insulin detemir U-100 50 units subQ daily, lispro, Humalog as directed, metformin 1000 mg p.o. b.i.d., multivitamins 1 tablet daily, nitroglycerin tablet as directed, olmesartan 40 mg p.o. daily, pantoprazole 40 mg p.o. daily and rosuvastatin 40 mg p.o. daily. REVIEW OF SYSTEMS: As per admitting history and physical. PHYSICAL EXAMINATION: GENERAL: On examination, the patient is a pleasant and cooperative and in no acute distress, lying on his bed, watching TV. EXTREMITIES: Dressing on the left foot was removed. There is a piece of Vaseline gauze noted over the area where his second toe was amputated. Upon removing this, there is an area that had opened up between great toe and remaining toes and there is some skin mottling on the distal aspect of it. Most of this is on the plantar surface. There is some callous that has been debrided on the plantar aspect over the MTP and there is no purulent drainage noted. The patient states that the erythema has resolved quite a bit and there is no swelling per the patient as well. He is nontender on palpation of the great toe or the other toes at this time and I cannot express any purulence from the wound. The patient does have a history of neuropathy, but states he can feel some sensation during palpation. ASSESSMENT: Diabetic ulcer, left foot. PLAN: X-rays will be reviewed by Dr. Luna with the CT noting some questionable lucencies around one of the screws of the fusion of the metatarsophalangeal joint and the possibility of having to do an irrigation and debridement of the current ulcer. I will tentatively put the patient on the surgical schedule and Dr. Luna can decide if further debridement will be needed of the ulcer and any need for looking into the hardware that is currently at first metatarsophalangeal joint. Continue I.V. antibiotics as per medicine team. LYDIA
[2019-02-07] MEDS ORDERED: VANCOMYCIN TROUGH ONE (05:30)
[2019-02-07] MEDS: HEPARIN SOD 5,000 UNIT/0.5 ML VIAL SQ SCH ×3 (06:02→21:01)
[2019-02-07] MEDS: INSULIN ASPART 100 UNITS/ML 3 ML PEN SC SCH ×4 (07:46→21:02)
[2019-02-07] MEDS: VALSARTAN 80 MG TAB PO SCH (07:47)
[2019-02-07] MEDS: AMLODIPINE BESYLATE 5 MG TAB PO SCH (07:47)
[2019-02-07] MEDS: PANTOprazole 40 MG TAB PO SCH (07:48)
[2019-02-07] MEDS: ATENOLOL 50 MG TABLET PO SCH (07:48)
[2019-02-07] MEDS ORDERED: PROPOFOL IV EMULSION 10 MG/ML 20 ML VIAL IV ONE (08:40)
[2019-02-07] MEDS ORDERED: fentaNYL citrate 100 MCG/2 ML VIAL ONE (08:40)
[2019-02-07] MEDS ORDERED: LIDOCAINE HCL 2% 2 ML VIAL/AMP(20MG/ML) INFIL ONE (08:40)
[2019-02-07] MEDS ORDERED: ROCURONIUM BROMIDE 10 MG/ML 5 ML VIAL ONE (08:40)
[2019-02-07] MEDS ORDERED: ONDANSETRON INJ 2 MG/ML 2 ML VIAL ONE ×2 (08:40→10:23)
[2019-02-07] MEDS ORDERED: SUCCINYLCHOLINE CHLORIDE 20 MG/ML 10 ML VIAL ONE (08:40)
--- NOTE | 2019-02-07 08:43 | Anesthesiology Consultation ---
Date of Service February 07, 2019 Assessment & Plan (1) Encounter for pre-operative examination: Chart Review Chart Review: Acceptable Risk for Surgery History Surgery Operation Date: 02/07/19 08:00 Proposed Procedures p Left Foot Ulcer Incision and Drainage - Ameya Luna DO Height/Weight Height: 6 ft 4 in Weight: 99 kg Allergies Allergy/AdvReac Type Severity Reaction Status Date / Time No Known Allergies Allergy Unknown ` Verified 06/15/09 16:25 niacin AdvReac Intermediate SEVERE Verified 08/05/09 04:13 FLUSHING AND ELEV.BSG lovastatin AdvReac Mild SEVERE GI Verified 08/05/09 04:13 simvastatin AdvReac Mild SEVERE GI Verified 08/05/09 04:13 Medications Home Medications Medication Instructions Recorded Confirmed Last Taken amlodipine 10 mg PO DAILY 02/05/19 02/05/19 Unknown aspirin [Aspir-Low] 81 mg PO DAILY 02/05/19 02/05/19 Unknown atenolol 100 mg PO DAILY 02/05/19 02/05/19 Unknown clopidogrel 75 mg PO DAILY 02/05/19 02/05/19 Unknown gemfibrozil 600 mg PO BID 02/05/19 02/05/19 Unknown hydrochlorothiazide 25 mg PO DAILY 02/05/19 02/05/19 Unknown insulin detemir U-100 [Levemir 50 unit SUBCUT DAILY 02/05/19 02/05/19 Unknown U-100 Insulin] insulin lispro [Humalog KwikPen See Rx Instructions .ROUTE .COMPLEX 02/05/19 02/05/19 Unknown Insulin] metformin 1,000 mg PO BID 02/05/19 02/05/19 Unknown multivitamin 1 tab 02/05/19 Unknown nitroglycerin [Nitrostat] See Rx Instructions .ROUTE .COMPLEX 02/05/19 02/05/19 Unknown olmesartan 40 mg PO DAILY 02/05/19 02/05/19 Unknown pantoprazole 40 mg PO DAILY 02/05/19 02/05/19 Unknown rosuvastatin 40 mg PO DAILY 02/05/19 02/05/19 Unknown Active Medications Generic Name Dose Route Start Last Admin Trade Name Freq PRN Reason Stop Dose Admin Amlodipine Besylate 5 mg 02/06/19 09:00 02/07/19 07:47 Norvasc PO 03/08/19 08:59 5 mg DAILY ALVARO Administration Atenolol 100 mg 02/06/19 09:00 02/07/19 07:48 Tenormin PO 03/08/19 08:59 100 mg QAM ALVARO Administration Gabapentin 200 mg 02/05/19 17:15 02/06/19 14:42 Neurontin PO 03/07/19 17:14 Not Given DAILY@1400 ALVARO Gabapentin 300 mg 02/05/19 21:00 02/06/19 21:02 Neurontin PO 03/07/19 20:59 Not Given HS ALVARO Heparin Sodium (Porcine) 5,000 units 02/05/19 22:00 02/07/19 06:02 Heparin Sodium (Porcine) SQ 03/07/19 21:59 Not Given Q8 ALVARO Piperacillin Sod/Tazobactam 115 mls @ 28.75 mls/hr 02/06/19 00:00 02/07/19 07:47 Sod 3.375 gm/ Dextrose IV 02/16/19 00:00 28.8 mls/hr Q8H ALVARO Administration Protocol Insulin Aspart 0 units 02/05/19 21:00 02/07/19 07:46 Novolog Flexpen SC 03/07/19 20:59 Not Given ACHS ALVARO Insulin Detemir 50 units 02/05/19 21:00 02/06/19 21:04 Levemir Flextouch SC 03/07/19 20:59 50 units HS ALVARO Administration Ioversol 94 ml 02/05/19 20:04 02/05/19 20:05 Optiray 320 100ml IV 02/09/19 20:03 94 ml ONCE PRN Administration Interaction Checking Pantoprazole Sodium 40 mg 02/06/19 09:00 02/07/19 07:48 Protonix PO 03/08/19 08:59 40 mg DAILY ALVARO Administration Valsartan 160 mg 02/06/19 09:00 02/07/19 07:47 Diovan PO 03/08/19 08:59 160 mg DAILY ALVARO Administration NPO Date Last Intake of Fluids: 02/07/19 Time Last Intake of Fluids: 00:00 Date Last Intake of Solids: 02/06/19 Time Last Intake of Solids: 17:00 Past Medical History Medical History Anemia CAD (coronary artery disease) distant MA Hypertension Insulin dependent diabetes mellitus Peripheral vascular disease Past Surgical History Surgical History History of femoropopliteal bypass Hx of CABG Hx of hernia repair ?aspiration pneumonia post-operatively? Infection of knee I&D Past Anesthesia History No Hx of Anesthesia Complications History of PONV No Hx of PONV and No Hx of Motion Sickness Social History Smoking Status: Former smoker Smoking End Date: quit 10/2016 Hx Alcohol Use: Yes Alcohol type: beer alcohol intake frequency: a few times a week Alcohol Intake Frequency Comment: 1-2 beers ~4 days/week Hx Substance Use: No Physical Exam Vital Signs Last Vital Signs Temp 36.5 C 02/07/19 06:47 Pulse 56 L 02/07/19 06:47 Resp 19 02/07/19 06:47 BP 142/68 H 02/07/19 06:47 Pulse Ox 95 02/07/19 06:47 Testing Laboratory Results 02/07/19 08:17 PT 10.3 Seconds (9.0-12.0) 02/05/19 16:43 INR 1.0 (0.9-1.1) 02/05/19 16:43 02/05/19 16:44 Aerobic Blood Culture - Preliminary Blood No growth in Aerobic bottle after 24 hours. Anaerobic Blood Culture - Preliminary No growth in Anaerobic bottle after 24 hours. 02/05/19 16:43 Aerobic Blood Culture - Preliminary Blood No growth in Aerobic bottle after 24 hours. Anaerobic Blood Culture - Preliminary No growth in Anaerobic bottle after 24 hours. 02/07/19 07:07 POC Glucose 115 H Electrocardiogram Date: 02/06/19 Findings: + NSR @ (67), + RBBB and + no change from (January of 2018) Chest X-Ray Date: 02/06/19 Findings: + NAD
[2019-02-07 08:55] LABS: Basophils # (auto) 0.03 K/uL (0-0.2); Basophils % (auto) 0.6 %; Eosinophils # (auto) 0.21 K/uL (0-0.5); Eosinophils % (auto) 3.9 %; Hematocrit (blood only) 37.2 % (42-52); Hemoglobin 12.8 g/dL (14.0-18.0); Immature Granulocytes # (auto) 0.05 K/uL (0.00-0.02); Immature Granulocytes % (auto) 0.9 %; Lymphocytes % (auto) 12.9 %; Mean Corpuscular Hgb Conc 34.4 g/dL (32-36); Mean Corpuscular Volume 95.9 fL (80-100); Mean Platelet Volume 10.5 fL (7.4-10.4); Monocytes # (auto) 0.57 K/uL (0.11-0.59); Monocytes % (auto) 10.5 %; Neutrophils # (auto) 3.85 K/uL (1.4-6.5); Neutrophils % (auto) 71.2 %; Platelet Count 203 K/uL (130-400); RDW Coefficient of Variation 12.6 % (11.5-14.5); RDW Standard Deviation 43.7 fL (36.4-46.3); Red Blood Count 3.88 M/uL (4.7-6.1); White Blood Count 5.41 K/uL (4.8-10.8)
[2019-02-07] MEDS ORDERED: LABETALOL HCL IV 5 MG/ML 20ML IV PRN (09:09)
[2019-02-07] MEDS ORDERED: ONDANSETRON INJ 2 MG/ML 2 ML VIAL IV PRN (09:09)
[2019-02-07] MEDS ORDERED: HYDROmorphone INJ 1 MG/ML SYRINGE IV PRN (09:09)
[2019-02-07] MEDS ORDERED: ATROPINE SULFATE 0.1 MG/ML 10ML SYR IV PRN (09:09)
[2019-02-07 09:24] LABS: BUN Creatinine Ratio 21.8 (10-20); Calcium 9.4 mg/dl (8.5-10.1); Creatinine Clr Calc Pharmacy 86.9 ml/min; Est GFR (African American) 94.1; Est GFR (Non-African American) 81.2
--- NOTE | 2019-02-07 09:28 | History & Physical Bridge Note ---
Date of Service February 07, 2019 History & Physical Bridge Note I have examined the patient, reviewed the History & Physical and in the interval since the performance of the History & Physical I have noted the following changes of clinical significance:Will require Incision and drainage with removal hardware left foot.
[2019-02-07] MEDS ORDERED: BUPIVACAINE 0.5 % 5 MG/1 ML MPF 30ML VIAL ONE (09:33)
[2019-02-07] MEDS ORDERED: BACITRACIN INJ 50,000 UNIT VIAL ONE (09:33)
[2019-02-07] MEDS ORDERED: DEXAMETHASONE SOD INJ 4 MG/ML VIAL ONE (10:23)
[2019-02-07] MEDS ORDERED: ePHEDrine sulfate 50 MG/ML SYR ONE (10:35)
--- NOTE | 2019-02-07 11:11 | Post Operative Brief Note ---
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
--- NOTE | 2019-02-07 11:28 | Anesthesiology Progress Note ---
Date of Service February 07, 2019 Anesthesia Post Procedure Vital Signs Vital Signs: Temp Pulse Pulse Resp BP BP Pulse Ox 02/07/19 11:25 62 16 120/64 94 02/07/19 11:15 58 L 16 121/61 100 02/07/19 11:05 59 L 16 119/66 98 02/07/19 10:58 36.9 C 62 14 140/65 96 02/07/19 06:47 36.5 C 56 L 19 142/68 H 95 02/06/19 23:22 36.7 C 53 L 20 129/70 93 02/06/19 14:51 36.7 C 59 L 17 160/79 H 95 Notes Mental Status: alert / awake / arousable and participated in evaluation Nausea / Vomiting: adequately controlled Pain: adequately controlled Airway Patency, RR, SpO2: stable & adequate BP & HR: stable & adequate Hydration State: stable & adequate
[2019-02-07] MEDS: GABAPENTIN 100 MG CAP PO SCH (13:38)
[2019-02-07] MEDS: VANCOMYCIN HCL 1,250 MG in SODIUM CHLORIDE 0.9% 250 ML IV SCH (14:06)
--- NOTE | 2019-02-07 14:20 | Hospitalist Progress Note ---
Date of Service February 07, 2019 Assessment & Plan (1) Diabetic ulcer of foot associated with diabetes mellitus due to underlying condition, with fat layer exposed: abrupt onset of left foot ulcer, just opened few days prior to admission at the site of prior 2nd toe amputation, s/p hardware placed in metatarsals for support some chills but no fever, decreased appetite WBC normal, no fever throughout stay CT foot shows cellulitis and wound, possible bone involvement of 1st metatarsal near hardware thought to have POSSIBLE osteomyelitis but now considered less likely OR on 02/[address] Luna, found to have LEFT FOOT abscess first webspace, diabetic ulcer 2 cm x 2 cm, necrotic skin and fascia left plantar foot s/p Left Foot Incision and Drainage of first abscess metatarsal web space, Debridement of left foot diabetic ulcer (2 cm x 2 cm), including skin and fascia(Left) no mention of bone involvement, no hardware removed continue Vanco and Zosyn for time being wound culture growing Staph aureus with no sensitivities back yet blood cultures negative Dr. Luna took deep wound cultures on 02/07, follow up results will consult Dr. 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, this is per patient fem-pop bypass was done at [facility] he gets routine dopplers every 6 months to assess the bypass arterial doppler shows a thrombosis in popliteal artery but he has intact bypass from superficial femoral to the calf holding aspirin and Plavix in anticipation of surgery will resume when okay with orthopedic surgery (4) HTN (hypertension): BP stable continue Valsartan, Atenolol, Norvasc (5) CAD (coronary artery disease): heart attack 23 years ago, never required stent since that time he says that he has never had angina hold aspirin for time being in anticipation of surgery, resume once okay with ortho (6) Dyslipidemia: Statin therapy Plan: consult ID for final abx recs, may require IV, he would be okay with this, had outpatient IV abx for 30 days in the past keep on tele over night, can go to med/surg tomorrow Subjective patient seen after procedure this morning with Dr. Luna I&D of the wound and abscess in webspace between 1st and 3rd toes no bone involvement, no removal of hardware patient feeling well, no chest pain or dyspnea, no fever/chills no pain in left foot ate full lunch after procedure, no nausea reviewed labs, CBC and BMP normal Review of Systems Review of Systems: All systems reviewed & are unremarkable except as noted in HPI & below Physical Exam Constitutional: WD/WN, vitals as above Eyes: PERRL, conjunctivae normal, anicteric sclerae ENMT: external ear and nose normal, oropharynx normal Neck: trachea midline, no thyromegaly Respiratory: normal respiratory effort, lungs clear to auscultation Cardiovascular: RRR, no murmur, no edema Gastrointestinal (Abdomen): normal bowel sounds, soft, nontender, no hepatosplenomegaly Musculoskeletal: no cyanosis or clubbing, extremities motor strength 5/5 Skin: + wound (packed and wrapped after OR today) and + scar (significant scar along left medial thigh and medial knee, left szymanski) Neurologic: PERRL, EOMI, accommodation nl, no face palsy, no dysarthria deep tendon reflexes 2+ bilaterally Motor/Sensory: + sensory deficit (de creased pain and light touch sensation feet bilaterally) Psychiatric: A+Ox3, euthymic affect Lymphatic: no cervical or axillary lymphadenopathy Results & Data Vital Signs (Past 12 Hours) Vital Signs Temp Pulse Pulse Pulse Resp BP Pulse Ox 02/07/19 12:18 36.8 C 59 L 59 L 16 158/67 H 98 02/07/19 11:55 57 L 16 157/68 H 97 02/07/19 11:45 59 L 16 111/68 98 02/07/19 11:35 36.5 C 56 L 16 148/65 H 96 02/07/19 11:25 62 16 120/64 94 02/07/19 11:15 58 L 16 121/61 100 02/07/19 11:05 59 L 16 119/66 98 02/07/19 10:58 36.9 C 62 14 140/65 96 02/07/19 06:47 36.5 C 56 L 19 142/68 H 95 Laboratory Results Laboratory Results - last 24 hr 02/06/19 02/06/19 02/06/19 16:38 16:40 17:23 WBC RBC Hgb Hct MCV MCH MCHC RDW Std Deviation RDW Coeff of Martin Plt Count MPV Immature Gran % (Auto) Neut % (Auto) Lymph % (Auto) Storey % (Auto) Eos % (Auto) Baso % (Auto) Immature Gran # (Auto) Neut # (Auto) Lymph # (Auto) Storey # (Auto) Eos # (Auto) Baso # (Auto) Sodium Potassium Chloride Carbon Dioxide Anion Gap BUN Creatinine Est Cr Clr Drug Dosing Est GFR ( Amer) Est GFR (Non-Af Amer) BUN/Creatinine Ratio Glucose POC Glucose 69 L* 73 Calcium Vancomycin Trough 15.2 02/06/19 02/07/19 02/07/19 20:05 07:07 08:17 WBC RBC Hgb Hct MCV MCH MCHC RDW Std Deviation RDW Coeff of Martin Plt Count MPV Immature Gran % (Auto) Neut % (Auto) Lymph % (Auto) Storey % (Auto) Eos % (Auto) Baso % (Auto) Immature Gran # (Auto) Neut # (Auto) Lymph # (Auto) Storey # (Auto) Eos # (Auto) Baso # (Auto) Sodium 143 Potassium 4.0 Chloride 108 H Carbon Dioxide 28 Anion Gap 7.0 BUN 20 H Creatinine 0.93 Est Cr Clr Drug Dosing 86.9 Est GFR ( Amer) 94.1 Est GFR (Non-Af Amer) 81.2 BUN/Creatinine Ratio 21.8 H Glucose 127 H POC Glucose 135 H 115 H Calcium 9.4 Vancomycin Trough 02/07/19 02/07/19 02/07/19 08:17 11:03 12:13 WBC 5.41 RBC 3.88 L Hgb 12.8 L Hct 37.2 L MCV 95.9 MCH 33.0 MCHC 34.4 RDW Std Deviation 43.7 RDW Coeff of Martin 12.6 Plt Count 203 MPV 10.5 H Immature Gran % (Auto) 0.9 Neut % (Auto) 71.2 Lymph % (Auto) 12.9 Storey % (Auto) 10.5 Eos % (Auto) 3.9 Baso % (Auto) 0.6 Immature Gran # (Auto) 0.05 H Neut # (Auto) 3.85 Lymph # (Auto) 0.70 L Storey # (Auto) 0.57 Eos # (Auto) 0.21 Baso # (Auto) 0.03 Sodium Potassium Chloride Carbon Dioxide Anion Gap BUN Creatinine Est Cr Clr Drug Dosing Est GFR ( Amer) Est GFR (Non-Af Amer) BUN/Creatinine Ratio Glucose POC Glucose 136 H 135 H Calcium Vancomycin Trough Microbiology 02/07/19 Unknown Foot,Left Gram Stain - Final 02/06/19 Unknown Foot,Left Gram Stain - Final 02/06/19 Unknown Foot,Left Wound Culture - Preliminary Staphylococcus aureus 02/05/19 16:44 Blood Aerobic Blood Culture - Preliminary No growth in Aerobic bottle after 24 hours. 02/05/19 16:44 Blood Anaerobic Blood Culture - Preliminary No growth in Anaerobic bottle after 24 hours. 02/05/19 16:43 Blood Aerobic Blood Culture - Preliminary No growth in Aerobic bottle after 24 hours. 02/05/19 16:43 Blood Anaerobic Blood Culture - Preliminary No growth in Anaerobic bottle after 24 hours. Medications Administered Current Inpatient Medications Acetaminophen (Tylenol) 650 mg PO Q4H PRN PRN Reason: pain/fever Stop: 03/07/19 16:04 Amlodipine Besylate (Norvasc) 5 mg PO DAILY [facility] Stop: 03/08/19 08:59 Last Admin: 02/07/19 07:47 Dose: 5 mg Documented by: Atenolol (Tenormin) 100 mg PO QAM [facility] Stop: 03/08/19 08:59 Last Admin: 02/07/19 07:48 Dose: 100 mg Documented by: Gabapentin (Neurontin) 200 mg PO DAILY@1400 [facility] Stop: 03/07/19 17:14 Last Admin: 02/07/19 13:38 Dose: Not Given Documented by: Gabapentin (Neurontin) 300 mg PO HS [facility] Stop: 03/07/19 20:59 Last Admin: 02/06/19 21:02 Dose: Not Given Documented by: Heparin Sodium (Porcine) (Heparin Sodium (Porcine)) 5,000 units SQ Q8 ALVARO Stop: 03/07/19 21:59 Last Admin: 02/07/19 13:37 Dose: 5,000 units Documented by: Piperacillin Sod/Tazobactam (Sod 3.375 gm/ Dextrose) 115 mls @ 28.75 mls/hr IV Q8H [facility]; Protocol Stop: 02/16/19 00:00 Last Infusion: 02/07/19 12:32 Dose: Infused Documented by: Vancomycin HCl 1,250 mg/ (Sodium Chloride) 275 mls @ 125 mls/hr IV Q14H [facility] Stop: 02/17/19 09:59 Last Admin: 02/07/19 14:06 Dose: 125 mls/hr Documented by: Insulin Aspart (Novolog Flexpen) 0 units SC ACHS [facility] Stop: 03/07/19 20:59 Last Admin: 02/07/19 13:37 Dose: 6 units Documented by: Insulin Detemir (Levemir Flextouch) 50 units SC HS [facility] Stop: 03/07/19 20:59 Last Admin: 02/06/19 21:04 Dose: 50 units Documented by: Ioversol (Optiray 320 100ml) 94 ml IV ONCE PRN PRN Reason: Interaction Checking Stop: 02/09/19 20:03 Last Admin: 02/05/19 20:05 Dose: 94 ml Documented by: Miscellaneous Information (Consult) 1 ea N/A UD PRN PRN Reason: Consult Stop: 03/07/19 16:04 Miscellaneous Information (Consult) 1 ea N/A UD PRN PRN Reason: Consult Stop: 03/07/19 17:00 Ondansetron HCl (Zofran) 4 mg IV Q6H PRN PRN Reason: Nausea Stop: 03/07/19 16:04 Pantoprazole Sodium (Protonix) 40 mg PO DAILY [facility] Stop: 03/08/19 08:59 Last Admin: 02/07/19 07:48 Dose: 40 mg Documented by: Valsartan (Diovan) 160 mg PO DAILY [facility] Stop: 03/08/19 08:59 Last Admin: 02/07/19 07:47 Dose: 160 mg Documented by: PG Care Time/CCT Total # of Minutes Spent Total Time Spent with Patient: Total time spent is greater than 50% in coordination of care (as documented) at patient's floor/unit and/or counseling patient:
--- NOTE | 2019-02-07 14:48 | Operative Report ---
DATE OF OPERATION: 02/07/2019 PREOPERATIVE DIAGNOSES: 1. Left foot abscess in the first webspace. 2. Diabetic ulcer 2 cm x 2 cm plantar foot. POSTOPERATIVE DIAGNOSES: 1. Left foot abscess, first webspace. 2. Diabetic ulcer 2 cm x 2 cm plantar foot. 3. Necrotic skin and fascia, left foot webspace first. PROCEDURE: 1. Left foot incision and drainage abscess first webspace of the foot. 2. Debridement of diabetic ulcer measuring 2 cm x 2 cm. 3. Debridement of skin and fascia, left foot. SURGEON: Ameya Luna DO. TELEVISION SPECIALIST: None. ANESTHESIA: General regional. SPECIMENS: Aerobic, anaerobic, Gram stain, left foot webspace first. DRAINS: Iodoform gauze 1/2 inch x2. COMPLICATIONS: None. BLOOD LOSS: 10 mL. PERTINENT HISTORY: This is a 74-year-old gentleman with diabetes and neuropathy. He had prior left forefoot surgery with retained hardware. He developed an ulceration and abscess over the last 4-5 days with the calluses developed over the last 2-3 weeks. The patient was seen in the office on and then directly admitted to the hospital for IV antibiotics. The patient continued to have the swelling and necrotic changes of the skin consistent with deep abscess. CT scan, however, demonstrated no obvious collectable fluid per the radiologist's read; however, there is an area of question in the first webspace. We decided to perform incision and drainage abscess. Also, consideration was made for removal of hardware; however, on CT scan, there was noted to be incomplete bony fusion at the first metatarsophalangeal joint fusion with some mild loosening around the screws. A decision was made, however, based upon the condition of the fusion to avoid removal of hardware if at all possible. The patient was taken to surgery as indicated. All potential risks, benefits, complications, alternatives, rehab, potential for incomplete relief of symptoms, need for further surgery, DVT, PE, , persistent pain, swelling, scarring, weakness, neurovascular injury, wound complications, hardware failure, nonunion, malunion and bone fracture were discussed with the patient. The patient decided to proceed with the procedure as indicated. DESCRIPTION OF PROCEDURE: The patient was taken to the operative suite, placed supine on the operating room table. After review of consent and identification of proper operative site, the patient was anesthetized, LMA was placed. Tourniquet was placed high on left thigh over cast padding. Left lower extremity was then sterilely prepped in usual fashion, elevated and tourniquet inflated to 350 mmHg. Next, the diabetic ulcer measuring approximately 2 cm x 2 cm with a depth of approximately 5-6 mm peripherally was then sharply debrided with a 15 blade scalpel. After this was completely debrided then the curette was then used to curettage the tissue to encourage bleeding, then an ellipse incision was made in the plantar aspect of the foot to debride and resect any damaged tissue. Next, another incision was made over the dorsum of the first webspace. Careful dissection was performed through the scar tissue and subcutaneous tissue to the level of the fascia and skin. This was then sharply debrided with a 15 blade scalpel, there was noted to be an abscess fluid pocket in the first webspace. This was then evacuated and then a culture was obtained for aerobic, anaerobic and Gram stain. Once the area of abscess was evacuated, next, curette and rongeur were used to debride the tissue and encourage local bleeding. Next, pulsatile lavage was then used to irrigate the first webspace and the plantar ulcer until clear 3 liters with bacitracin. Once this was completed, top sheet and top gloves were changed followed by insertion of 1/2 inch iodoform gauze drains dorsal and one plantar. Next, skin was then loosely closed using interrupted 4-0 nylon horizontal mattress sutures. Finally, skin and subcutaneous tissue was injected dorsally with 0.5% Marcaine plain for postop pain control then a sterile compressive dressing was applied, Xeroform gauze, sterile 4 x 4's, cast padding, ABD pad and an Alexis wrap. The tourniquet was released. The patient was awakened and taken to recovery in stable condition. I attest to the content of the Intraoperative Record and any orders documented therein. Any exception s are noted below.
--- NOTE | 2019-02-07 19:53 | Infectious Disease Consult ---
Date of Consultation February 07, 2019 Assessment & Plan (1) Infection of left foot: 74-year-old male with diabetic foot infection status post surgical debridement with cultures growing staph aureus. Pending final operative cultures and sensitivities, current antibiotic therapy with vancomycin and Zosyn appropriate. Will adjust once cultures are available. Will follow. (2) Staph aureus infection: (3) Diabetic ulcer of foot associated with diabetes mellitus due to underlying condition, with fat layer exposed: History of Present Illness Reason for Consultation: Diabetic foot/ulcer, staph aureus growing Attending Physician: Royer Newman, DO History of Present Illness 74-year-old male with history of diabetes mellitus, peripheral vascular disease, diabetic neuropathy, status post previous left second toe amputation, who was admitted from Dr. Palencia's office with several days of purulent drainage from his left foot surgical site, associated with some chills and no reported fever. No significant pain as patient has significant neuropathy. Initial CT scan worrisome for possibility of osteomyelitis, now status post surgical drainage and debridement with osteomyelitis considered less likely prior cultures positive for staph aureus and group B strep, operative cultures are pending. Patient currently being treated with vancomycin and Zosyn which she is tolerating without apparent difficulty. Allergies Allergy/AdvReac Type Severity Reaction Status Date / Time No Known Allergies Allergy Unknown ` Verified 06/15/09 16:25 niacin AdvReac Intermediate SEVERE Verified 08/05/09 04:13 FLUSHING AND ELEV.BSG lovastatin AdvReac Mild SEVERE GI Verified 08/05/09 04:13 simvastatin AdvReac Mild SEVERE GI Verified 08/05/09 04:13 Home Medications Home Medications Medication Instructions Recorded Confirmed Type Levemir U-100 Insulin 50 unit SUBCUT DAILY 02/05/19 02/05/19 History amlodipine 10 mg PO DAILY 02/05/19 02/05/19 History aspirin [Aspir-Low] 81 mg PO DAILY 02/05/19 02/05/19 History atenolol 100 mg PO DAILY 02/05/19 02/05/19 History clopidogrel 75 mg PO DAILY 02/05/19 02/05/19 History gemfibrozil 600 mg PO BID 02/05/19 02/05/19 History hydrochlorothiazide 25 mg PO DAILY 02/05/19 02/05/19 History insulin lispro [Humalog KwikPen See Rx Instructions .ROUTE .COMPLEX 02/05/19 02/05/19 History Insulin] metformin 1,000 mg PO BID 02/05/19 02/05/19 History multivitamin 1 tab 02/05/19 History nitroglycerin [Nitrostat] See Rx Instructions .ROUTE .COMPLEX 02/05/19 02/05/19 History olmesartan 40 mg PO DAILY 02/05/19 02/05/19 History pantoprazole 40 mg PO DAILY 02/05/19 02/05/19 History rosuvastatin 40 mg PO DAILY 02/05/19 02/05/19 History acetaminophen [Mapap 650 mg PO Q4H PRN #30 tab 02/09/19 Rx (acetaminophen)] cephalexin [Keflex] 500 mg PO BID #84 cap 02/09/19 Rx Patient History Medical History Anemia CAD (coronary artery disease) distant DE Hypertension Insulin dependent diabetes mellitus Peripheral vascular disease Surgical History History of femoropopliteal bypass Hx of CABG Hx of hernia repair ?aspiration pneumonia post-operatively? Infection of knee I&D Social History Preferred Language: Setswana Communication Ability: Effective Retail Product Advisor Required: No Beliefs That Will Affect Care: Mosque Mosque Beliefs: Buddhist marital status: Current Living Situation: Spouse Feels Safe at Home: Yes Smoking Status: Former smoker Second Hand Exposure: No ; Hx Alcohol Use: Yes Alcohol type: beer Hx Substance Use: No Review of Systems Review of Systems: All systems reviewed & are unremarkable except as noted in HPI & below Physical Exam Constitutional: WD/WN, vitals as above comfortable; no acute distress Eyes: PERRL, conjunctivae normal, anicteric sclerae ENMT: external ear and nose normal, oropharynx normal Neck: trachea midline, no thyromegaly neck nontender Respiratory: normal respiratory effort, lungs clear to auscultation normal percussion; does not use accessory muscles Cardiovascular: Rate/Rhythm: regular rate and regular rhythm Heart Sounds: normal S1 and normal S2; no gallop, no murmur and no cardiac rub Vessels: normal peripheral pulses; no JVD Gastrointestinal (Abdomen): normal bowel sounds, soft, nontender, no hepatosplenomegaly Musculoskeletal: no cyanosis or clubbing, extremities motor strength 5/5 Spine: thoracic spine normal to inspection and lumbar spine normal to inspection; no cervical spinal tenderness Skin: no rashes, warm and dry normal turgor and + wound (Dressing intact left foot) Neurologic: patellar DTR's 2+ bilat, sensation intact no focal motor deficits Psychiatric: A+Ox3, euthymic affect Orientation: cooperative Lymphatic: no cervical or axillary lymphadenopathy no inguinal lymphad enopathy Results & Data Vital Signs (Past 12 Hours) Vital Signs Temp Pulse Pulse Pulse Resp BP BP 02/07/19 19:41 36.7 C 63 18 125/76 02/07/19 18:46 61 02/07/19 15:56 36.8 C 62 20 129/56 L 02/07/19 14:15 62 18 167/75 H 02/07/19 12:18 36.8 C 59 L 59 L 16 158/67 H 02/07/19 11:55 57 L 16 157/68 H 02/07/19 11:45 59 L 16 111/68 02/07/19 11:35 36.5 C 56 L 16 148/65 H 02/07/19 11:25 62 16 120/64 02/07/19 11:15 58 L 16 121/61 02/07/19 11:05 59 L 16 119/66 02/07/19 10:58 36.9 C 62 14 140/65 Pulse Ox 02/07/19 19:41 92 02/07/19 18:46 02/07/19 15:56 98 02/07/19 14:15 98 02/07/19 12:18 98 02/07/19 11:55 97 02/07/19 11:45 98 02/07/19 11:35 96 02/07/19 11:25 94 02/07/19 11:15 100 02/07/19 11:05 98 02/07/19 10:58 96 Laboratory Results Short CBC 02/07/19 Range/Units 08:17 WBC 5.41 (4.8-10.8) K/uL Hgb 12.8 L (14.0-18.0) g/dL Hct 37.2 L (42-52) % Plt Count 203 (130-400) K/uL BMP 02/07/19 08:17 Sodium 143 Potassium 4.0 Chloride 108 H Carbon Dioxide 28 BUN 20 H Creatinine 0.93 Glucose 127 H Calcium 9.4 Diagnostic Findings Microbiology 02/05/19 16:44 Blood Aerobic Blood Culture - Preliminary No growth in Aerobic bottle after 48 hours. 02/05/19 16:44 Blood Anaerobic Blood Culture - Preliminary No growth in Anaerobic bottle after 48 hours. 02/05/19 16:43 Blood Aerobic Blood Culture - Preliminary No growth in Aerobic bottle after 48 hours. 02/05/19 16:43 Blood Anaerobic Blood Culture - Preliminary No growth in Anaerobic bottle after 48 hours. 02/07/19 Unknown Foot,Left Gram Stain - Final 02/06/19 Unknown Foot,Left Gram Stain - Final 02/06/19 Unknown Foot,Left Wound Culture - Preliminary Staphylococcus aureus CT SCAN OF THE LEFT FOOT WITH IV CONTRAST CLINICAL HISTORY: Left foot infection. Clinical concern for abscess. COMPARISON STUDY: Radiographs of the left foot dated 06/16/2009. TECHNIQUE: CT scan of the left foot is performed from the distal tibia and fibula to the base of the foot. Images are reviewed in the axial, sagittal, and coronal planes. IV contrast was administered without complication. Note that interpretation is significantly suboptimal without current plain film correlate. A dose lowering technique was utilized adhering to the principles of ALARA. CT DOSE: 177.22 mGy.cm FINDINGS: The skeletal structures are heterogeneously osteopenic. No acute fracture is identified. There is postoperative change from fusion at the first metatarsophalangeal joint. There is incomplete bony fusion. Lucency around one of the cortical lag screws suggests loosening (axial image #201). There has also been osteotomy with postoperative change seen in the third and fourth metatarsal heads. Moderate osteoarthritic change is seen throughout the forefoot and midfoot. There is a cutaneous ulceration identified along the plantar aspect of the foot at the first metatarsophalangeal joint. There is significant superficial and deep soft tissue edema and fluid at this site. No organized/peripherally enhancing fluid collection is seen to suggest abscess. Milder soft tissue edema is seen throughout the remainder of the forefoot and midfoot. There is nonspecific bony irregularity identified along the plantar aspect of the fused first metatarsophalangeal joint. Question bony erosion involving the base of the first proximal phalanx, best seen on sagittal image #16. No periostitis is identified. Degenerative spurring is seen along the dorsal last of the tarsal bones. The ankle joint appears maintained. There are large dorsal and plantar calcaneal enthesophytes. The Achilles tendon is intact as imaged. IMPRESSION: 1. There is a cutaneous ulceration identified along the plantar aspect of the foot at the level of the first metatarsophalangeal joint 2. There is evidence of significant surrounding cellulitis with subcutaneous and deep soft tissue inflammation and fluid. The appearance is typical for cellulitis. No organized fluid collection is seen to indicate abscess. 3. No acute fracture is seen. 4. There has been fusion of the first metatarsophalangeal joint. Therapeutic hardware appears intact. There is incomplete bony fusion at this joint. 5. There is lucency around a cortical lag screw at the fused first MTP which suggests loosening. 6. There is bony irregularity identified along the plantar aspect of the fused first metatarsophalangeal joint, with questionable bony erosion at the base of the first proximal phalanx. No periostitis is clearly seen. Acute versus chronic osteomyelitis would be impossible to exclude and clinical correlation will be essential. 7. Additional findings as above. Dictated: 02/05/2019 8:22 PM Transcribed: 02/05/2019 10:10 PM Beryl [id number] [email or web address] Electronically signed by: Galindo Fenton M.D. 02/05/2019 10:25 PM Dictated: 02/05/192021 Transcribed: 02/05/192209 PG Care Time/CCT Total # of Minutes Spent Total Time Spent with Patient: Total time spent is greater than 50% in coordination of care (as documented) at patient's floor/unit and/or counseling patient:
[2019-02-07] MEDS: GABAPENTIN 300 MG CAP PO SCH (21:00)
[2019-02-07] MEDS: INSULIN DETEMIR FLEXPEN/FLEX TOUCH 100 UNITS/ML 3ML SC SCH (21:01)
[2019-02-08] MEDS: VANCOMYCIN HCL 1,250 MG in SODIUM CHLORIDE 0.9% 250 ML IV SCH (04:33)
[2019-02-08 05:56] LABS: Hematocrit (blood only) 34.6 % (42-52); Hemoglobin 11.9 g/dL (14.0-18.0); Mean Corpuscular Hgb Conc 34.4 g/dL (32-36); Mean Corpuscular Volume 96.4 fL (80-100); Mean Platelet Volume 9.9 fL (7.4-10.4); Platelet Count 202 K/uL (130-400); RDW Coefficient of Variation 12.3 % (11.5-14.5); RDW Standard Deviation 43.2 fL (36.4-46.3); Red Blood Count 3.59 M/uL (4.7-6.1); White Blood Count 7.59 K/uL (4.8-10.8)
[2019-02-08] MEDS: HEPARIN SOD 5,000 UNIT/0.5 ML VIAL SQ SCH ×3 (06:30→20:57)
[2019-02-08 06:36] LABS: Creatinine Clr Calc Pharmacy 81.6 ml/min; Est GFR (African American) 87.2; Est GFR (Non-African American) 75.2
--- NOTE | 2019-02-08 08:27 | Orthopedic Progress Note ---
Date of Service February 08, 2019 Assessment & Plan (1) Foot abscess, left: POD #1 s/p I&D left foot dressing change tomorrow cont to ice/elevate ID Consult: cultures growing staph aureus. Pending final operative cultures and sensitivities, current antibiotic therapy with vancomycin and Zosyn appropriate. Will adjust once cultures are available. Subjective POD #1 s/p 1. Left foot incision and drainage abscess first webspace of the foot, Debridement of diabetic ulcer measuring 2 cm x 2 cm, Debridement of skin and fascia, left foot. Review of Systems Constitutional: no fever, no chills and no sweats Respiratory: no cough and no dyspnea Cardiovascular: no chest pain and no dyspnea Gastrointestinal: no abdominal pain, no nausea and no vomiting Physical Exam Physical Exam: Vital Signs Temp Pulse Pulse Pulse Resp BP BP 02/08/19 07:24 36.7 C 60 19 157/74 H 02/08/19 03:59 36.5 C 54 L 17 161/72 H 02/07/19 23:25 36.6 C 63 17 135/69 02/07/19 19:41 36.7 C 63 18 125/76 02/07/19 18:46 61 02/07/19 15:56 36.8 C 62 20 129/56 L 02/07/19 14:15 62 18 167/75 H 02/07/19 12:18 36.8 C 59 L 59 L 16 158/67 H 02/07/19 11:55 57 L 16 157/68 H 02/07/19 11:45 59 L 16 111/68 02/07/19 11:35 36.5 C 56 L 16 148/65 H 02/07/19 11:25 62 16 120/64 02/07/19 11:15 58 L 16 121/61 02/07/19 11:05 59 L 16 119/66 02/07/19 10:58 36.9 C 62 14 140/65 Pulse Ox 02/08/19 07:24 98 02/08/19 03:59 95 02/07/19 23:25 94 02/07/19 19:41 92 02/07/19 18:46 02/07/19 15:56 98 02/07/19 14:15 98 02/07/19 12:18 98 02/07/19 11:55 97 02/07/19 11:45 98 02/07/19 11:35 96 02/07/19 11:25 94 02/07/19 11:15 100 02/07/19 11:05 98 02/07/19 10:58 96 Intake and Output 02/07/19 02/08/19 02/08/19 22:59 06:59 14:59 Intake Total 865 / 2135 165 / 2135 275 / 275 Output Total 500 / 1110 600 / 1110 Balance 365 / 1025 -435 / 1025 275 / 275 Intake: IV 390 / 620 115 / 620 275 / 275 Zosyn 3.375 gm In D5 100 ml @ 115 / 345 115 / 345 28.75 mls/hr I V Q8H ALVARO Rx#: [id number] Vancomycin HCl 1,250 mg In Nss 275 / 275 275 / 275 250 ml @ 125 m ls/hr IV Q14H ALVARO Rx#:[id number] Oral 475 / 765 50 / 765 Output: Urine 500 / 1100 600 / 1100 Other: Weight 96.3 kg Constitutional: WD/WN, vitals as above no acute distress Musculoskeletal: left foot:dressing is clean and dry, skin warm and pink great toe and 4th/5th toes Results & Data Vital Signs (Past 12 Hours) Vital Signs Temp Pulse Resp BP Pulse Ox 02/08/19 07:24 36.7 C 60 19 157/74 H 98 02/08/19 03:59 36.5 C 54 L 17 161/72 H 95 02/07/19 23:25 36.6 C 63 17 135/69 94 Laboratory Results Laboratory Results WBC 7.59 K/uL (4.8-10.8) 02/08/19 05:13 RBC 3.59 M/uL (4.7-6.1) L 02/08/19 05:13 Hgb 11.9 g/dL (14.0-18.0) L 02/08/19 05:13 Hct 34.6 % (42-52) L 02/08/19 05:13 MCV 96.4 fL (80-100) 02/08/19 05:13 MCH 33.1 pg (25-34) 02/08/19 05:13 MCHC 34.4 g/dL (32-36) 02/08/19 05:13 RDW Std Deviation 43.2 fL (36.4-46.3) 02/08/19 05:13 RDW Coeff of Martin 12.3 % (11.5-14.5) 02/08/19 05:13 Plt Count 202 K/uL (130-400) 02/08/19 05:13 MPV 9.9 fL (7.4-10.4) 02/08/19 05:13 Immature Gran % (Auto) 0.9 % 02/07/19 08:17 Neut % (Auto) 71.2 % 02/07/19 08:17 Lymph % (Auto) 12.9 % 02/07/19 08:17 Zavala % (Auto) 10.5 % 02/07/19 08:17 Eos % (Auto) 3.9 % 02/07/19 08:17 Baso % (Auto) 0.6 % 02/07/19 08:17 Immature Gran # (Auto) 0.05 K/uL (0.00-0.02) H 02/07/19 08:17 Neut # (Auto) 3.85 K/uL (1.4-6.5) 02/07/19 08:17 Lymph # (Auto) 0.70 K/uL (1.2-3.4) L 02/07/19 08:17 Zavala # (Auto) 0.57 K/uL (0.11-0.59) 02/07/19 08:17 Eos # (Auto) 0.21 K/uL (0-0.5) 02/07/19 08:17 Baso # (Auto) 0.03 K/uL (0-0.2) 02/07/19 08:17 PT 10.3 Seconds (9.0-12.0) 02/05/19 16:43 INR 1.0 (0.9-1.1) 02/05/19 16:43 Sodium 143 mmol/L (136-145) 02/07/19 08:17 Potassium 4.0 mmol/L (3.5-5.1) 02/07/19 08:17 Chloride 108 mmol/L (98-107) H 02/07/19 08:17 Carbon Dioxide 28 mmol/L (21-32) 02/07/19 08:17 Anion Gap 7.0 (3-11) 02/07/19 08:17 BUN 20 mg/dl (7-18) H 02/07/19 08:17 Creatinine 0.99 mg/dl (0.6-1.4) 02/08/19 05:13 Est Cr Clr Drug Dosing 81.6 ml/min 02/08/19 05:13 Est GFR ( Amer) 87.2 02/08/19 05:13 Est GFR (Non-Af Amer) 75.2 02/08/19 05:13 BUN/Creatinine Ratio 21.8 (10-20) H 02/07/19 08:17 Glucose 127 mg/dl (70-99) H 02/07/19 08:17 POC Glucose 142 (70-99) H 02/08/19 07:21 Calcium 9.4 mg/dl (8.5-10.1) 02/07/19 08:17 Total Bilirubin 0.3 mg/dl (0.2-1) 02/05/19 16:43 AST 17 U/L (15-37) 02/05/19 16:43 ALT 25 U/L (12-78) 02/05/19 16:43 Alkaline Phosphatase 67 U/L (45-117) 02/05/19 16:43 Total Protein 7.5 gm/dl (6.4-8.2) 02/05/19 16:43 Albumin 3.5 gm/dl (3.4-5.0) 02/05/19 16:43 Globulin 4.0 gm/dl (2.5-4.0) 02/05/19 16:43 Albumin/Globulin Ratio 0.9 (0.9-2) 02/05/19 16:43 Vancomycin Trough 15.2 mcg/ml (See Comment) 02/06/19 17:23 Microbiology 02/06/19 Unknown Foot,Left Gram Stain - Final 02/06/19 Unknown Foot,Left Wound Culture - Preliminary Staphylococcus aureus 02/05/19 16:44 Blood Aerobic Blood Culture - Preliminary No growth in Aerobic bottle after 48 hours. 02/05/19 16:44 Blood Anaerobic Blood Culture - Preliminary No growth in Anaerobic bottle after 48 hours. 02/05/19 16:43 Blood Aerobic Blood Culture - Preliminary No growth in Aerobic bottle after 48 hours. 02/05/19 16:43 Blood Anaerobic Blood Culture - Preliminary No growth in Anaerobic bottle after 48 hours. 02/07/19 Unknown Foot,Left Gram Stain - Final
[2019-02-08] MEDS: ATENOLOL 50 MG TABLET PO SCH (08:33)
[2019-02-08] MEDS: AMLODIPINE BESYLATE 5 MG TAB PO SCH (08:33)
[2019-02-08] MEDS: VALSARTAN 80 MG TAB PO SCH (08:33)
[2019-02-08] MEDS: PIPERACILLIN/TAZOBACTAM 3.375 GM in DEXTROSE 5% 100 ML IV SCH ×3 (08:33→23:49)
[2019-02-08] MEDS: PANTOprazole 40 MG TAB PO SCH (08:33)
[2019-02-08] MEDS: INSULIN ASPART 100 UNITS/ML 3 ML PEN SC SCH ×4 (08:34→20:58)
[2019-02-08] MEDS ORDERED: VANCOMYCIN TROUGH ONE ×2 (13:30→17:30)
[2019-02-08] MEDS: GABAPENTIN 300 MG CAP PO SCH ×3 (14:28→18:28)
[2019-02-08] MEDS: GABAPENTIN 100 MG CAP PO SCH (14:29)
--- NOTE | 2019-02-08 15:40 | Hospitalist Progress Note ---
Date of Service February 08, 2019 Assessment & Plan (1) Diabetic ulcer of foot associated with diabetes mellitus due to underlying condition, with fat layer exposed: Presented with abrupt onset of left foot ulcer, just opened few days prior to admission with abscess at the site of prior 2nd toe amputation, s/p hardware placed in metatarsals for support -He had some chills but no fever, decreased appetite WBC normal, no fever throughout stay CT foot shows cellulitis and wound, possible bone involvement of 1st metatarsal near hardware thought to have POSSIBLE osteomyelitis but now considered less likely Now status post OR on 02/[address] Luna, found to have LEFT FOOT abscess first webspace, diabetic ulcer 2 cm x 2 cm, necrotic skin and fascia left plantar foot s/p Left Foot Incision and Drainage of first abscess metatarsal web space, Debridement of left foot diabetic ulcer (2 cm x 2 cm), including skin and fascia(Left) -no mention of bone involvement, no hardware removed -Was on Vanco and Zosyn initially -Wound culture growing MSSA and group B beta strep -Blood cultures no growth to date -Discontinue vancomycin -Continue Zosyn for now -Await ID input on Saturday as to whether will need long-term IV versus p.o. 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, this is per patient Is status post fem-pop bypass was done at [facility] He gets routine dopplers every 6 months to assess the bypass -Arterial doppler here shows a thrombosis in popliteal artery but he has intact bypass from superficial femoral to the calf -Will restart aspirin Plavix from the morning (4) HTN (hypertension): Blood pressure is somewhat elevated continue Valsartan, Atenolol, Norvasc-we will increase Norvasc to home dose of 10 mg daily (5) CAD (coronary artery disease): heart attack 23 years ago, never required stent since that time he says that he has never had angina -Restart aspirin, Plavix -Restart home rosuvastatin -Continue atenolol (6) Dyslipidemia: -Restart statin therapy (7) Murmur, cardiac: Seems to be a murmur of mitral valve regurgitation Patient reports having a murmur since age 10-doubt this would be mitral regurg since childhood -Check echocardiogram especially in the setting of recurrent infections to rule out valvular vegetation -Blood cultures no growth to date (8) History of femoropopliteal bypass: As above -Restarting aspirin, Plavix -Continue statin Has good blood flow on Doppler to the calf and foot (9) DVT prophylaxis: Heparin SQ Disposition-stable for downgrade to medical/surgical floor -Discharge to home in the next 1 to 2 days after decision has been made about whether to not to have IV antibiotics, plus need to see if orthopedics will be performing any more surgery Subjective Patient states he feels "great" today. Pain in the foot is controlled, denies chest pain or shortness of breath, however he has had a slight cough since the surgery. Denies abdominal pain, nausea. He is moving his bowels regularly. He is getting his urine out. He does not have an incentive spirometer at bedside Telemetry with sinus bradycardia with rates in the 50s to 60s with some PVCs I discussed the case with the pharmacist today regarding his antibiotics. Review of Systems Review of Systems: All systems reviewed & are unremarkable except as noted in HPI & below Physical Exam Constitutional: WD/WN, vitals as above Eyes: PERRL, conjunctivae normal, anicteric sclerae ENMT: external ear and nose normal, oropharynx normal Neck: trachea midline, no thyromegaly Respiratory: normal respiratory effort, lungs clear to auscultation Cardiovascular: Rate/Rhythm: regular rate and regular rhythm Heart Sounds: + murmur (3/6 systolic murmur heard best at the apex) Extremities: + edema (mild edema left leg); no calf tenderness Gastrointestinal (Abdomen): normal bowel sounds, soft, nontender, no hepatosplenomegaly Musculoskeletal: Extremities: + extremities abnormal to inspection (Left distal leg/ankle/foot with dressing and Alexis wrap in place, not removed, small amount of bloody drainage soaking through the plantar surface of the midfoot), no cyanosis and no clubbing Skin: no rashes, warm and dry Neurologic: moves all extremities and awake; no focal motor deficits Psychiatric: A+Ox3, euthymic affect Results & Data Vital Signs (Past 12 Hours) Vital Signs Temp Pulse Pulse Resp BP Pulse Ox 02/08/19 11:15 36.6 C 58 L 19 146/81 H 97 02/08/19 07:30 65 02/08/19 07:24 36.7 C 60 19 157/74 H 98 02/08/19 03:59 36.5 C 54 L 17 161/72 H 95 Laboratory Results 02/08/19 02/08/19 02/08/19 Range/Units 16:30 11:15 07:21 WBC (4.8-10.8) K/uL RBC (4.7-6.1) M/uL Hgb (14.0-18.0) g/dL Hct (42-52) % MCV (80-100) fL MCH (25-34) pg MCHC (32-36) g/dL RDW Std Deviation (36.4-46.3) fL RDW Coeff of Martin (11.5-14.5) % Plt Count (130-400) K/uL MPV (7.4-10.4) fL Creatinine (0.6-1.4) mg/dl Est Cr Clr Drug Dosing ml/min Est GFR ( Amer) Est GFR (Non-Af Amer) POC Glucose 185 H 164 H 142 H (70-99) 02/08/19 02/08/19 02/07/19 Range/Units 05:13 05:13 20:40 WBC 7.59 (4.8-10.8) K/uL RBC 3.59 L (4.7-6.1) M/uL Hgb 11.9 L (14.0-18.0) g/dL Hct 34.6 L (42-52) % MCV 96.4 (80-100) fL MCH 33.1 (25-34) pg MCHC 34.4 (32-36) g/dL RDW Std Deviation 43.2 (36.4-46.3) fL RDW Coeff of Martin 12.3 (11.5-14.5) % Plt Count 202 (130-400) K/uL MPV 9.9 (7.4-10.4) fL Creatinine 0.99 (0.6-1.4) mg/dl Est Cr Clr Drug Dosing 81.6 ml/min Est GFR ( Amer) 87.2 Est GFR (Non-Af Amer) 75.2 POC Glucose 232 H (70-99) Blood cultures with no growth to date Wound culture intraoperatively with group B beta strep, wound culture from adm ission with MSSA PG Care Time/CCT Total # of Minutes Spent Total Time Spent with Patient: Total time spent is greater than 50% in coordination of care (as documented) at patient's floor/unit and/or counseling patient:
[2019-02-08] MEDS ORDERED: AMLODIPINE BESYLATE 5 MG TAB PO STA (17:24)
[2019-02-08] MEDS ORDERED: INSULIN DETEMIR FLEXPEN/FLEX TOUCH 100 UNITS/ML 3ML SC SCH (21:00)
[2019-02-08] MEDS ORDERED: ROSUVASTATIN CALCIUM 20 MG TAB PO SCH (21:00)
[2019-02-09] MEDS: HEPARIN SOD 5,000 UNIT/0.5 ML VIAL SQ SCH ×2 (05:48→14:06)
[2019-02-09 06:36] LABS: Basophils # (auto) 0.03 K/uL (0-0.2); Basophils % (auto) 0.4 %; Eosinophils # (auto) 0.31 K/uL (0-0.5); Eosinophils % (auto) 4.1 %; Hematocrit (blood only) 38.2 % (42-52); Immature Granulocytes # (auto) 0.04 K/uL (0.00-0.02); Immature Granulocytes % (auto) 0.5 %; Lymphocytes # (auto) 1.24 K/uL (1.2-3.4); Lymphocytes % (auto) 16.4 %; Mean Corpuscular Volume 95.7 fL (80-100); Mean Platelet Volume 10.2 fL (7.4-10.4); Monocytes % (auto) 9.3 %; Neutrophils # (auto) 5.22 K/uL (1.4-6.5); Neutrophils % (auto) 69.3 %; Platelet Count 228 K/uL (130-400); RDW Coefficient of Variation 12.4 % (11.5-14.5); RDW Standard Deviation 43.5 fL (36.4-46.3); Red Blood Count 3.99 M/uL (4.7-6.1); White Blood Count 7.54 K/uL (4.8-10.8)
[2019-02-09 06:54] LABS: Estimated Average Glucose 171 mg/dl; Hemoglobin A1C 7.6 % (4.5-5.6)
[2019-02-09 07:07] LABS: Alanine Aminotransferase 25 U/L (12-78); Albumin Level 3.3 gm/dl (3.4-5.0); Aspartate Aminotransferase 13 U/L (15-37); BUN Creatinine Ratio 20.3 (10-20); Bilirubin Direct < 0.1 mg/dl (0-0.2); Blood Urea Nitrogen 19 mg/dl (7-18); C Reactive Protein 1.77 mg/dl (0-0.29); Calcium 9.3 mg/dl (8.5-10.1); Carbon Dioxide 28 mmol/L (21-32); Chloride 110 mmol/L (98-107); Creatinine Clr Calc Pharmacy 86.9 ml/min; Est GFR (African American) 94.1; Est GFR (Non-African American) 81.2; Glucose 107 mg/dl (70-99); Sodium 144 mmol/L (136-145)
[2019-02-09 07:10] LABS: Alkaline Phosphatase 61 U/L (45-117); Bilirubin,Total 0.3 mg/dl (0.2-1); Total Protein 7.4 gm/dl (6.4-8.2)
[2019-02-09] MEDS: PIPERACILLIN/TAZOBACTAM 3.375 GM in DEXTROSE 5% 100 ML IV SCH (08:11)
[2019-02-09] MEDS: VALSARTAN 80 MG TAB PO SCH (08:37)
[2019-02-09] MEDS: PANTOprazole 40 MG TAB PO SCH (08:38)
[2019-02-09] MEDS: ATENOLOL 50 MG TABLET PO SCH (08:38)
[2019-02-09] MEDS: INSULIN ASPART 100 UNITS/ML 3 ML PEN SC SCH ×2 (08:51→13:17)
[2019-02-09] MEDS ORDERED: CLOPIDOGREL BISULFATE 75 MG TAB PO SCH (09:00)
[2019-02-09] MEDS ORDERED: AMLODIPINE BESYLATE 5 MG TAB PO SCH (09:00)
[2019-02-09] MEDS ORDERED: ASPIRIN 81 MG ECTAB PO SCH (09:00)
--- NOTE | 2019-02-09 09:57 | Orthopedic Progress Note ---
Date of Service February 09, 2019 Assessment & Plan (1) Foot abscess, left: POD #2 s/p 1. Left foot incision and drainage abscess first webspace of the foot. 2. Debridement of diabetic ulcer measuring 2 cm x 2 cm. 3. Debridement of skin and fascia, left foot. dressing changed today and the packing removed from the plantar and dorsal 1st interspace. cont to ice/elevate ID Consult: cultures growing staph aureus and Group B Beta Strep. Pending final operative cultures and sensitivities, current antibiotic therapy with vancomycin and Zosyn appropriate. Will adjust once cultures are available. NWB on the LLE. May use the heel for balance. D/C planning--per medicine. If antibiotic(s) are determined, patient may be able to be discharged. Subjective No complaints with the left foot. Minimal pain. No other complaints. Hoping a ntibiotic choice can be made and he will be discharged soon. Physical Exam Constitutional: WD/WN, vitals as above no acute distress Musculoskeletal: Left foot: mild erythema of the great toe and third toe (2nd toe was previously amputated). Stable plantar ulcer. No erythema. Packing was removed. Suture intact at the dorsal foot. There is a stable ulceration at the 1st interspace--packing removed from this area. No dorsal foot erythema today. Psychiatric: A+Ox3, euthymic affect Results & Data Vital Signs (Past 12 Hours) Vital Signs Temp Pulse Pulse Resp BP Pulse Ox 02/09/19 07:45 36.6 C 60 20 160/78 H 97 02/08/19 23:15 36.9 C 68 18 149/65 H 96
[2019-02-09] MEDS ORDERED: PERFLUTREN LIPID MICROSPHERE (DEFINITY) IV ONE (10:20)
--- NOTE | 2019-02-09 11:49 | Infectious Disease Progress Nt ---
Date of Service February 09, 2019 Assessment & Plan (1) Infection of left foot: will continue zosyn for now. we did discuss IV vs po abx, he is declining IV abx at this time. would suggest keflex 500mg po bid with plans to continue for 6 weeks, he is agreeable. suggest probiotic. He will plan to follow in ID office in next 3-4 weeks to assess, if no improvement he will then consider IV abx.will likely repeat labs at that visit to trend esr. continue dressing changes. ok for d/c from ID standpoint when otherwise stable. (2) Staph aureus infection: (3) Diabetic ulcer of foot associated with diabetes mellitus due to underlying condition, with fat layer exposed: Subjective pt seen in followup, doing much better. states he is anxious to be d/c home today. requesting that he be placed on po abx, declines IV abx. pharmacy is [facility]. afebrile. no cp, sob, cough, no abd pain, no n/v/d. no pain in foot, dressing intact, denies bleeding or drainage. wbc 7.5, ESR elevated at 72. CT foot c/w osteo first met, hardware remains. 8/8 cultures grew MSSA and GBS, causey sensitive. 8/8 blood cultures negative, remains on zosyn, tolerating well. afebrile. Review of Systems Review of Systems: All systems reviewed & are unremarkable except as noted in HPI & below Physical Exam Constitutional: WD/WN, vitals as above Eyes: PERRL, conjunctivae normal, anicteric sclerae ENMT: external ear and nose normal, oropharynx normal Neck: normal visual inspection Respiratory: normal respiratory effort, lungs clear to auscultation Cardiovascular: RRR, no murmur, no edema Gastrointestinal (Abdomen): normal bowel sounds, soft, nontender, no hepatosplenomegaly Musculoskeletal: no cyanosis or clubbing, extremities motor strength 5/5 Skin: no rashes, warm and dry left foot dressing c/d/i, no bleeding or drainage, no surrounding erythema, warmth, non tender Psychiatric: A+Ox3, euthymic affect Results & Data Vital Signs (Past 12 Hours) Vital Signs Temp Pulse Pulse Resp BP Pulse Ox 02/09/19 10:30 59 L 132/73 02/09/19 07:45 36.6 C 60 20 160/78 H 97 Laboratory Results Microbiology 02/06/19 Unknown Foot,Left Gram Stain - Final 02/06/19 Unknown Foot,Left Wound Culture - Preliminary Staphylococcus aureus Group B Beta Strep 02/07/19 Unknown Foot,Left Gram Stain - Final 02/07/19 Unknown Foot,Left Deep Wound Culture - Preliminary Group B Beta Strep 02/05/19 16:44 Blood Aerobic Blood Culture - Preliminary No growth in Aerobic bottle after 48 hours. 02/05/19 16:44 Blood Anaerobic Blood Culture - Preliminary No growth in Anaerobic bottle after 48 hours. 02/05/19 16:43 Blood Aerobic Blood Culture - Preliminary No growth in Aerobic bottle after 48 hours. 02/05/19 16:43 Blood Anaerobic Blood Culture - Preliminary No growth in Anaerobic bottle after 48 hours. PG Care Time/CCT Total # of Minutes Spent Total Time Spent with Patient: Total time spent is greater than 50% in coordination of care (as documented) at patient's floor/unit and/or counseling patient:
--- NOTE | 2019-02-09 14:59 | Discharge Summary ---
Date of Service February 09, 2019 Admission HPI Per Admitting Provider 74 yo male with history of DM type II on insulin, CAD, PVD, neuropathy and HTN presents as a direct admission from Dr. Luna's office with a wound to his left foot. He has a history of a hammer toe repair to the second left toe that did not go well and required an eventual amputation of the left 2nd toe. This was done in [place]. He followed up locally with Dr. Luna. He eventually required another surgery to make foot more stable, hardware placed on dorsal aspect of metatarsals of 1st and 2nd toe. The original wound healed well. He also had a wound to his left szymanski that spread into cellulitis, infected bursa of left knee. He was in his usual state of health when he noticed a wound to the area where the 2nd toe was amputated. The wound quickly progressed over 3 days and opened with purulent drainage. He admits to some chills but no fever. He has a decreased appetite. He did not notice any redness in the left foot or leg. No chest pain, cough or dysnea. No nausea or vomiting or diarrhea. He admits to having some neuropathy in feet, so unsure of how long the wound/ulcer was present prior to it rupturing. He went to see Dr. Luna today in the office and he was sent to hospital for direct admission. Recommended starting IV antibiotics and getting CT foot. Will also get vascular consult because the patient has a complex vascular history in the left leg with PVD but also his reports an aneurysm repair in left thigh/knee region that was at [place]. Medically the patient has DM, sugars typically well controlled on oral regimen as well as Levemir and Humolog. Has remote h/o CAD with NH 23 years ago, never had a stent. Never has chest pain or angina. No history of COPD. Prior smoker. He reports two years ago that when he had the aneurysm of left femoral artery he was also in septic shock and suffered significant renal failure. He was on hemodialysis for a brief period after the illness but he and his report that his kidneys made a full recovery and he was taken off of HD. His PCP is in [place] and he gets his specialty care with [facility]. Medical history: PVD, CAD, HTN, Dyslipidemia, Neuropathy, DM type II insulin dependent, septic shock, acute renal failure requiring temporary HD, left femoral aneurysm Surgical history: 2nd toe amputation left, left TKA, left fem aneurysm repair Social history: prior smoker, drinks occasionally Family history: father due to complications of alcohol abuse, cirrhosis mother due to DM type II and heart disease brother due to esophageal CA sister living with DM type II Principal Diagnosis Left foot osteomyelitis Discharge Exam Constitutional WD/WN, vitals as above ENMT external ear and nose normal, oropharynx normal Neck trachea midline, no thyromegaly Respiratory normal respiratory effort, lungs clear to auscultation Cardiovascular Rate/Rhythm: regular rate and regular rhythm Heart Sounds: + murmur (3/6 systolic murmur heard best at the RUSB) Extremities: + edema (mild edema left leg); no calf tenderness Gastrointestinal (Abdomen) normal bowel sounds, soft, nontender, no hepatosplenomegaly Musculoskeletal Extremities: + extremities abnormal to inspection (Left distal leg/ankle/foot with dressing and Alexis wrap in place, not removed), no cyanosis and no clubbing Skin no rashes, warm and dry Neurologic moves all extremities and awake; no focal motor deficits Psychiatric A+Ox3, euthymic affect Discharge Data Allergies Allergy/AdvReac Type Severity Reaction Status Date / Time No Known Allergies Allergy Unknown ` Verified 06/15/09 16:25 niacin AdvReac Intermediate SEVERE Verified 08/05/09 04:13 FLUSHING AND ELEV.BSG lovastatin AdvReac Mild SEVERE GI Verified 08/05/09 04:13 simvastatin AdvReac Mild SEVERE GI Verified 08/05/09 04:13 Consultations 02/05/19 16:07 Consult Vascular Surgery Routine 02/05/19 16:11 Consult Orthopedic Surgery Routine 02/07/19 14:29 Consult Infectious Diseases Routine Procedures Performed Operation Date: 02/07/19 08:00 Actual Procedures p Left Foot Incision and Drainage of first metatarsal web space, Debridement of left foot diabetic ulcer and skin fascia(Left) - Ameya Luna DO Ordered Studies 02/05/19 15:57 CT foot LT w con Urgent 02/05/19 17:49 US arterial duplex LE BI Urgent ECHO-severe aortic stenosis, mild-mod AI, mild MR Hospital Course (1) Diabetic ulcer of foot associated with diabetes mellitus due to underlying condition, with fat layer exposed: Presented with abrupt onset of left foot ulcer, just opened few days prior to admission with abscess at the site of prior 2nd toe amputation, s/p hardware placed in metatarsals for support -He had some chills but no fever, decreased appetite WBC normal, no fever throughout stay, blood cultures remained negative CT foot shows cellulitis and wound, possible bone involvement of 1st metatarsal near hardware thought to have POSSIBLE osteomyelitis but now considered less likely Now status post OR on 02/[address] Luna, found to have LEFT FOOT abscess first webspace, diabetic ulcer 2 cm x 2 cm, necrotic skin and fascia left plantar foot s/p Left Foot Incision and Drainage of first abscess metatarsal web space, Debridement of left foot diabetic ulcer (2 cm x 2 cm), including skin and fascia(Left) -no mention of bone involvement, no hardware removed -Was on Vanco and Zosyn initially -Wound culture growing MSSA and group B beta strep -Blood cultures no growth to date -Discontinued vancomycin and was continued on Zosyn for several days -Appreciate ID input--> would prefer IV abx half-way but pt wants to trial po abx first and have close f/u with ID as outpt--> sent out with po Keflex -Appreciate orthopedics consultation and surgical management-f/u as outpt (2) DM type 2 (diabetes mellitus, type 2): complications with peripheral neuropathy and macrovascular complications of PVD and CAD -With persistent hyperglycemia here that improved prior to dc -ok to restart oral agents upon dc -Continue diabetic diet -HgbA1C controlled at 7.6% (3) Peripheral vascular disease: With a 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 He gets routine dopplers every 6 months to assess the bypass -Arterial doppler here shows a thrombosis in popliteal artery but he has intact bypass from superficial femoral to the calf -restarted aspirin and Plavix after being held for surgery (4) HTN (hypertension): Blood pressures were somewhat elevated continue Valsartan, Atenolol, Norvasc (5) CAD (coronary artery disease): heart attack 23 years ago, never required stent since that time he says that he has never had angina -cont aspirin, Plavix -continue rosuvastatin -Continue atenolol (6) Dyslipidemia: -Restart statin therapy (7) Murmur, cardiac: Seems to be a murmur of mitral valve regurgitation and --> ECHO checked prior to discharge and showed severe , mild MR, mild-mod AI -no valvular vegetation -Blood cultures no growth to date -RECOMMEND FOLLOW UP WITH CARDIOLOGY OUTPATIENT (8) 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: Severe , mild-mod AI, mild MR all seen on ECHO here RECOMMEND FOLLOW UP WITH CARDIOLOGY OUTPATIENT (9) History of femoropopliteal bypass: As above -continue aspirin, Plavix -Continue statin Has good blood flow on Doppler to the calf and foot (10) DVT prophylaxis: Heparin SQ was provided Disposition-stable for dc to home Total Time Total Time Spent Total Time Spent (In Minutes): >30 min Total Time Includes: Examination of the Patient, Discharge Planning, Medication Reconciliation and Communication With Other Providers (Infectious DIsease) Discharge Plan Discharge Items Patient Disposition: Home - Self-Care Reason For Visit: LEFT FOOT ULCER Discharge Diagnosis: Left foot abscess Condition: Good Discharge Goals: Decrease discomfort, Diagnostic testing, Improve disease control, Improve function, Learn about illness and Therapeutic intervention Activity: As commented below Bathing: Keep incision dry Exercise/Sports: None Weightbearing: Left non-weightbearing Weightbearing Comment: Can touch heel to ground for balance Non-emergency contact: Primary Care Provider, Surgeon and Specialist Call non-emergency contact if: you have any medication questions, your symptoms worsen, your pain is not controlled, your pain is worsening, your pain is unusual for you, your pain is concerning for you, you have a fever, your temperature is above 100.5, your wound has increased redness, your wound has increased drainage and your wound pain has increased Follow-up/Referrals: Estela Sharpe DO [Physician] - 02/25/19 3:00 pm (Please, follow up at [facility] Infectious Disease Office with Dr. Sharpe on SaturdayFebruary 25 at 3:15 pm (arrive 3:00 pm). *The office is located in [address] of [email or web address]. This is the big building next to this [facility]. If you need to change this appointment, call the office at [phone].) Ameya Luna DO [Surgeon] - 02/19/19 11:30 am (Please, follow up at Dr. Luna's office in [place] with his medical billing assistant, Kraig Hawkins PA-C, on February 19 at 11:30 am. *The address is [address] [place] [address]. If you need to change this appointment, call their office at [phone].) Soren Ortega, DO [Primary Care Provider] - 02/13/19 2:45 pm (Please, follow up with Dr. Ortega on SaturdayFebruary 13 at 2:45 pm. *If you need to change this appointment, call the office at [phone].) Diet: Carb Consistent or DM2 and Heart Healthy Addtl Provider Instructions: Please have your PCP check blood work in 1-2 weeks to include: CBC, CMP, ESR, and CRP. Please take Keflex as your antibiotic for 6 weeks, 500mg twice daily. Follow up with Orthopedics as directed, and with PCP within 1 week. You will also need to follow up with Dr. Sharpe within 2 weeks. ACTIVITY RECOMMENDATIONS: Limitations: Heel weight bearing only if able to tolerate. SPECIAL CARE INSTRUCTIONS: * Some drainage onto the dressing is normal and is no cause for alarm. * Some swelling is natural especially after walking. * When resting, keep your foot elevated above the level of your heart. * Call [facility] if you notice: -Increased drainage -Fever over 101 degrees F -Severe constant pain BANDAGE: * Leave bandage/cast in place unless otherwise directed. * Keep bandage/cast dry at all times. PIN CARE: * Leave pins alone. * If pins come loose or fall out, notify physician. FOLLOW UP VISIT WITH DR. LUNA If appointment is not already scheduled: Please call [facility] after you get home today to schedule a follow-up appointment for [address] Luna at . Prescriptions: New acetaminophen [Mapap (acetaminophen)] 325 mg Tablet 650 mg PO Q4H PRN (Reason: pain) Qty: 30 RF: 0 cephalexin [Keflex] 500 mg capsule 500 mg PO BID Qty: 84 RF: 0 Continued atenolol 100 mg Tablet 100 mg PO DAILY RF: 0 amlodipine 10 mg Tablet 10 mg PO DAILY RF: 0 multivitamin Tablet 1 tab RF: 0 gemfibrozil 600 mg Tablet 600 mg PO BID RF: 0 pantoprazole 40 mg Tablet,Delayed Release (Dr/Ec) 40 mg PO DAILY RF: 0 metformin 1,000 mg Tablet 1,000 mg PO BID RF: 0 nitroglycerin [Nitrostat] 0.4 mg Tablet, Sublingual See Rx Instructions .ROUTE .COMPLEX RF: 0 hydrochlorothiazide 25 mg Tablet 25 mg PO DAILY RF: 0 olmesartan 40 mg Tablet 40 mg PO DAILY RF: 0 insulin lispro [Humalog KwikPen Insulin] 100 unit/mL Insulin Pen See Rx Instructions .ROUTE .COMPLEX RF: 0 rosuvastatin 40 mg Tablet 40 mg PO DAILY RF: 0 Levemir U-100 Insulin 100 unit/mL Solution 50 unit SUBCUT DAILY RF: 0 clopidogrel 75 mg Tablet 75 mg PO DAILY RF: 0 aspirin [Aspir-Low] 81 mg Tablet,Delayed Release (Dr/Ec) 81 mg PO DAILY RF: 0 Stand-Alone Forms: [facility]/Other Patient Handouts: Surgery Prevent DVT After Discharge Orders: Discharge Order (Routine); Ordered 02/09/19 Ordered By: Moni Vazquez Admission Data Admit Date/Time: 02/05/19 15:21 Attending Provider: Moni Vazquez Admit Provider: Roger Greco Primary Care Provider: Soren Ortega Other Providers: Jesus Bautista ; Ameya Luna ; Miguel Dempsey Service: Surgical Services Other Interventions: Discharge Summary Assessment (RN) Last Done: 02/09/19 15:46 Pending Studies at Discharge: Yes (Echocardiogram) DC Date/Time DO NOT enter until pt leaves facility: 02/09/19 17:26
== END 2019-02-09 17:26 | disposition home or self-care (01) | DRG 623 ==
LOC: SUATTDRO 15:21 → 2W 15:21 → 2S 02-07 12:16 → 3W 02-08 15:37

== ENCOUNTER 2019-07-22 12:51 | Inpatient (IN) ==
[2019-07-22] MEDS ORDERED: ONDANSETRON INJ 2 MG/ML 2 ML VIAL IV PRN (17:45)
[2019-07-22] MEDS ORDERED: ALUMINUM/MAGNESIUM SUSP 30 ML UDC PO PRN (17:45)
[2019-07-22] MEDS ORDERED: MAGNESIUM HYDROXIDE SUSP 30 ML UDC PO PRN (17:45)
[2019-07-22] MEDS ORDERED: ZOLPIDEM TARTRATE 5 MG TAB PO PRN (17:45)
[2019-07-22] MEDS ORDERED: VANCOMYCIN CONSULT ACTIVE PRN (17:55)
[2019-07-22] MEDS ORDERED: VANCOMYCIN HCL 1,000 MG in SODIUM CHLORIDE 0.9% 250 ML IV SCH (18:00)
[2019-07-22] MEDS ORDERED: PATIENT'S HEIGHT AND/OR WEIGHT NEEDED SCH (18:15)
[2019-07-22] MEDS ORDERED: VANCOMYCIN HCL 2,250 MG in SODIUM CHLORIDE 0.9% 500 ML IV STA (19:44)
[2019-07-22] MEDS: SODIUM CHLORIDE 0.9% 1000ML 1,000 ML IV SCH (20:10)
[2019-07-22] MEDS ORDERED: INSULIN ASPART 100 UNITS/ML 3 ML PEN SC SCH (21:00)
[2019-07-22] MEDS: METOPROLOL TARTRATE 50 MG TAB PO SCH (21:25)
[2019-07-22] MEDS ORDERED: GLUCOSE 10 TABS/TUBE PO PRN (22:00)
[2019-07-22] MEDS ORDERED: GLUCOSE 40% GEL 15 GM TUBE PO PRN (22:00)
[2019-07-22] MEDS ORDERED: GLUCAGON FOR INJ 1 MG VIAL SQ PRN (22:00)
[2019-07-22] MEDS ORDERED: CARBOHYDRATES FOR HYPOGLYCEMIA PO PRN (22:00)
[2019-07-22] MEDS ORDERED: DEXTROSE 50% 50 ML SYRINGE IV PRN (22:00)
[2019-07-22 22:13] LABS: Creatinine Clr Calc Pharmacy 60.2 ml/min; Est GFR (African American) 64.5; Est GFR (Non-African American) 55.7
[2019-07-23] MEDS ORDERED: Nursing to Pharmacy Communication ONE ×4 (00:05→09:48)
[2019-07-23] MEDS: HYDROmorphone INJ 0.5 MG/0.5 ML SYR IV PRN ×5 (00:37→21:17)
[2019-07-23] MEDS ORDERED: INSULIN ASPART 100 UNITS/ML 3 ML PEN SC SCH (06:00)
[2019-07-23 07:22] LABS: Creatinine Clr Calc Pharmacy 79.7 ml/min; Est GFR (African American) 90.5; Est GFR (Non-African American) 78.1
[2019-07-23] MEDS: VANCOMYCIN HCL 1,000 MG in SODIUM CHLORIDE 0.9% 250 ML IV SCH ×2 (08:29→16:45)
[2019-07-23] MEDS: OXYCODONE HCL IR 5 MG TAB (IMMEDIATE RELEASE) PO PRN ×2 (08:32→22:50)
[2019-07-23] MEDS: METOPROLOL TARTRATE 50 MG TAB PO SCH ×2 (08:33→21:21)
[2019-07-23] MEDS: PANTOprazole 40 MG TAB PO SCH (08:35)
[2019-07-23] MEDS: INSULIN ASPART 100 UNITS/ML 3 ML PEN SC SCH ×4 (08:59→21:24)
[2019-07-23] MEDS ORDERED: ROSUVASTATIN CALCIUM 20 MG TAB PO SCH (09:00)
[2019-07-23] MEDS ORDERED: ATENOLOL 50 MG TABLET PO SCH (09:00)
[2019-07-23] MEDS ORDERED: INSULIN DETEMIR FLEXPEN/FLEX TOUCH 100 UNITS/ML 3ML SC SCH ×3 (09:00→21:00)
[2019-07-23] MEDS ORDERED: AMLODIPINE BESYLATE 5 MG TAB PO SCH (09:00)
[2019-07-23] MEDS ORDERED: OLMESARTAN MEDOXOMIL 40 MG TAB PO SCH (09:00)
--- NOTE | 2019-07-23 09:22 | Infectious Disease Consult ---
Date of Consultation July 23, 2019 Assessment & Plan (1) Prosthetic joint infection: pt will continue on IV abx, please send OR cultures. will check blood cultures as well. for OR tomorrow. History of Present Illness Attending Physician: Ameya Luna, DO pt admitted electively for left knee surgery, states he had increased pain, warmth, swelling in left knee, denies trauma to area. saw ortho as outpatient a nd had fluid aspirated, states it was discolored and thick, states he was told there was infection, unsure what grew. was give keflex and was taking this until admission yesterday. now on vanco, tolerating well. plans for OR tomorrow. no f/c at home, afebrile since admission. does have pain in knee. no abd pain, no n/v/d. no cp, sob, cough. he has been seen by ID in the past for a left foot infection, cultures previously grew MSSA and GBS from foot, was on prolonged keflex, last seen by ID on 03/20. states he had cast on foot that was just recently removed. Allergies Allergy/AdvReac Type Severity Reaction Status Date / Time niacin AdvReac Intermediate SEVERE Verified 03/20/19 13:05 FLUSHING AND ELEV.BSG lovastatin AdvReac Mild SEVERE GI Verified 03/20/19 13:05 simvastatin AdvReac Mild SEVERE GI Verified 03/20/19 13:05 Home Medications Home Medications Medication Instructions Recorded Confirmed Type Levemir U-100 Insulin 50 unit SUBCUT DAILY 02/05/19 03/20/19 History amlodipine 10 mg PO DAILY 02/05/19 03/20/19 History aspirin [Aspir-Low] 81 mg PO DAILY 02/05/19 03/20/19 History clopidogrel 75 mg PO DAILY 02/05/19 03/20/19 History gemfibrozil 600 mg PO BID 02/05/19 03/20/19 History hydrochlorothiazide 25 mg PO DAILY 02/05/19 03/20/19 History insulin lispro [Humalog KwikPen See Rx Instructions .ROUTE .COMPLEX 02/05/19 03/20/19 History Insulin] metformin 1,000 mg PO BID 02/05/19 03/20/19 History multivitamin 1 tab 02/05/19 03/20/19 History nitroglycerin [Nitrostat] See Rx Instructions .ROUTE .COMPLEX 02/05/19 03/20/19 History olmesartan 40 mg PO DAILY 02/05/19 03/20/19 History pantoprazole 40 mg PO DAILY 02/05/19 03/20/19 History rosuvastatin 40 mg PO DAILY 02/05/19 03/20/19 History acetaminophen [Mapap 650 mg PO Q4H PRN #30 tab 02/09/19 03/20/19 Rx (acetaminophen)] cephalexin [Keflex] 500 mg PO BID #84 cap 02/09/19 02/25/19 Rx ferrous sulfate 325 mg (65 mg 325 mg PO DAILY #30 tab 02/25/19 03/20/19 Rx iron) tablet cholecalciferol (vitamin D3) 50 2,000 units PO DAILY 03/20/19 03/20/19 History mcg (2,000 unit) capsule sulfamethoxazole 800 1 tab PO DAILY tab 03/20/19 03/20/19 History mg-trimethoprim 160 mg tablet metoprolol tartrate [Lopressor] 50 mg PO BID 07/22/19 07/22/19 History Patient History Medical History Anemia CAD (coronary artery disease) distant LA Hypertension Insulin dependent diabetes mellitus Peripheral vascular disease Surgical History History of femoropopliteal bypass Hx of CABG Hx of hernia repair ?aspiration pneumonia post-operatively? Infection of knee I&D Social History Preferred Language: Surinamese Communication Ability: Effective Ordnance Engineer Required: No Beliefs That Will Affect Care: None marital status: Current Living Situation: Spouse Other Information That Helps Us Care for You: No Feels Safe at Home: Yes Safety Concerns: Feels Safe At This Time Smoking Status: Former smoker Second Hand Exposure: No ; Hx Alcohol Use: Yes Alcohol type: beer and wine Hx Substance Use: No Review of Systems Review of Systems: All systems reviewed & are unremarkable except as noted in HPI & below Physical Exam Constitutional: WD/WN, vitals as above Eyes: PERRL, conjunctivae normal, anicteric sclerae ENMT: external ear and nose normal, oropharynx normal Neck: normal visual inspection Respiratory: normal respiratory effort, lungs clear to auscultation Cardiovascular: RRR, no murmur, no edema Gastrointestinal (Abdomen): normal bowel sounds, soft, nontender, no hepatosplenomegaly Musculoskeletal: no cyanosis or clubbing, extremities motor strength 5/5 Skin: no rashes, warm and dry knee with edema, warmth tender, no erythema, incision closed, no drainage Psychiatric: A+Ox3, euthymic affect Results & Data Vital Signs (Past 12 Hours) Vital Signs Temp Pulse Resp BP Pulse Ox Pulse Ox 07/23/19 07:48 36.8 C 81 18 143/84 H 94 07/23/19 00:05 91 07/22/19 23:42 37.0 C 70 16 131/76 91 PG Care Time/CCT Total # of Minutes Spent Total Time Spent with Patient: Total time spent is greater than 50% in coordination of care (as documented) at patient's floor/unit and/or counseling patient:
--- NOTE | 2019-07-23 09:32 | Pharmacy Report ---
Pharmacy Abx Initial Consult - Date of Service July 23, 2019 - Pharmacy Dosing Scope Date of Consult: 07/22 Consultation requested by: Kraig Hawkins Pa-C Pharmacy is consulted to initiate vancomycin IV dosing therapy, order appropriate labs and adjust drug dose/frequency. - Subjective The patient is a 74 year old M admitted on 07/22/19 17:39. - Objective Height: 6 ft 2 in Weight: 93.4 kg Vital Signs (Past 12hrs): Vital Signs Temp Pulse Resp BP Pulse Ox Pulse Ox 07/23/19 07:48 36.8 C 81 18 143/84 H 94 07/23/19 00:05 91 07/22/19 23:42 37.0 C 70 16 131/76 91 Lab Results (24hrs): Laboratory Tests (24 Hours) 07/23/19 07/22/19 06:01 20:56 Creatinine 0.96 D 1.27 Est Cr Clr Drug Dosing 79.7 60.2 - Risk Factors for Resistance * Hospitalization for 48 hours or more within the past 90 days * Antimicrobial use within the last 90 days - Assessment & Plan Assessment 74 year old M admitted after left knee surgery- increased pain, warmth in knee with possible infection. Patient recently on cephalexin switched to vancomycin on admission. Plans for OR Plan Vancomycin IV * Estimated PK Parameters: Vd 0.7 L/kg, Randy 0.070 hr-1, t1/2 9.8 hr * Loading dose: 2280 mg (24.5 mg/kg) * Maintenance dose: 1000 mg IV (10.7 mg/kg) every 8 hours * Patient meets criteria for vancomycin AUC dosing nomogram AUC/JASE is the preferred PK/PD target for vancomycin Target AUC/JASE = 400-600 AUC guided dosing is effective and associated with decreased risk of nephrotoxicity Trough levels poorly correlate with AUC/JASE and trough monitoring has been associated with increased risk of nephrotoxicity * Trough level is ordered for 07/24 @ 0730 Pharmacy will continue to follow and will adjust dose/frequency as necessary. Thank you.
--- NOTE | 2019-07-23 09:46 | XRay Report ---
XR chest 2V PA/lateral CLINICAL HISTORY: pre op clearance COMPARISON STUDY: 02/06/2019 FINDINGS: Findings of prior median sternotomy. Diaphragms are smooth. Slight chronic blunting left la teral costophrenic angle. Lungs are considered clear. Chronic pleural-parenchymal scarring lateral aspect left hemithorax. Is o f note is made of a compression deformity of T12 considered unchanged from the prior study. IMPRESSION: Chronic change. No acute process. ACT 112: Negative or not required by law. The above report was generated using voice recognition software. It may contain grammatical, syntax or spelling errors. Electronically signed by: Eliseo Nugent M.D. 07/23/2019 9:44 AM
[2019-07-23 10:50] LABS: INR 1.2 (0.9-1.1); Prothrombin Time 11.9 Seconds (9.0-12.0)
[2019-07-23] MEDS ORDERED: PHARMACY GLYCEMIC MGMT CONSULT PRN (11:13)
[2019-07-23 11:19] LABS: Albumin Level 2.8 gm/dl (3.4-5.0); BUN Creatinine Ratio 29.4 (10-20); Calcium 9.8 mg/dl (8.5-10.1); Creatinine Clr Calc Pharmacy 85.9 ml/min; Est GFR (African American) 98.3; Est GFR (Non-African American) 84.8; Magnesium 1.9 mg/dl (1.8-2.4)
[2019-07-23 11:20] LABS: Hematocrit (blood only) 28.9 % (42-52); Hemoglobin 8.9 g/dL (14.0-18.0); Mean Corpuscular Hgb Conc 30.8 g/dL (32-36); Mean Corpuscular Volume 97.3 fL (80-100); Mean Platelet Volume 10.8 fL (7.4-10.4); Platelet Count 468 K/uL (130-400); RDW Coefficient of Variation 14.8 % (11.5-14.5); RDW Standard Deviation 52.7 fL (36.4-46.3); Red Blood Count 2.97 M/uL (4.7-6.1); White Blood Count 7.64 K/uL (4.8-10.8)
[2019-07-23 11:21] LABS: Basophils # (auto) 0.02 K/uL (0-0.2); Basophils % (auto) 0.3 %; Eosinophils # (auto) 0.12 K/uL (0-0.5); Eosinophils % (auto) 1.6 %; Immature Granulocytes # (auto) 0.14 K/uL (0.00-0.02); Immature Granulocytes % (auto) 1.8 %; Lymphocytes # (auto) 0.69 K/uL (1.2-3.4); Monocytes # (auto) 0.59 K/uL (0.11-0.59); Monocytes % (auto) 7.7 %; Neutrophils # (auto) 6.08 K/uL (1.4-6.5); Neutrophils % (auto) 79.6 %
[2019-07-23 11:22] LABS: Albumin Globulin Ratio 0.6 (0.9-2); Bilirubin,Total 0.3 mg/dl (0.2-1); Globulin 4.7 gm/dl (2.5-4.0); Total Protein 7.5 gm/dl (6.4-8.2)
--- NOTE | 2019-07-23 11:56 | Cardiology Consultation ---
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 Aortic stenosis s/p bioprosthetic aortic valve replacement: Has done well recovering from surgery (06/17/2019). SBE prophylaxis for dental procedures. Continue anti-platelet therapy if/when possible. Appropriately functioning valve on echo which was recommended and ordered today. 2. CAD s/p CABG x 1 (VELASQUEZ to LAD): No angina or heart failure symptoms. Continue aspirin 81 mg daily. Continue beta-valerio, high-intensity statin therapy. 3. Hypertension: Blood pressure has been mostly normotensive. Continue home regimen. 4. Anemia: On 02/09/2019, hemoglobin was 13, but this has been reduced to 8.9 today. Could be due to recent cardiac surgery with blood loss. Monitor closely. Will defer evaluation and treatment, if appropriate, to hospitalist service, who has been consulted by Orthopedics. 5. Left knee prosthetic joint infection: As per Ortho and ID. 6. Disposition: Please call with any other questions or concerns. Thank you for allowing me to participate in the care of your patient. Please call for any other questions or concerns. Sincerely, Daniel Parker M.D. History of Present Illness Reason for Consultation: Recent aortic valve replacement and CABG Requesting Physician: Dr. Luna Attending Physician: Ameya Luna, History of Present Illness Mr. 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 He was admitted by Ortho with plans of surgical intervention regarding his infected left knee replacement. He follows with his primary heating and ventilating drafter, in the [place] area. For severe aortic stenosis and LAD CAD, he underwent bioprosthetic aortic valve replacement with VELASQUEZ to the LAD on 06/16/2019. The aortic valve was a 25 mm Medtronic Mosaic bioprosthesis. He also underwent reconstruction of the aortic root with a pericardial patch. He tolerated the procedure well and was seen yesterday by his CT surgeon. He informed his CT surgeon of his upcoming knee surgery and reports that there were no specific contraindications from CT surgical standpoint. He states that he was a little short of breath prior to aortic valve replacement and has felt quite well following surgery. His sternotomy site has healed well without any complications. His biggest issue has been his left knee. He does not report any fevers or shaking chills but does have pain in his left knee. He denies chest pain, shortness of breath, syncope, near-syncope, palpitations, edema, or bleeding such as melena, hematochezia, or hematuria. He follows with [facility] for his vascular care and underwent left leg fem- pop bypass in 2017. He reports having an TN in the and had a failed PCI attempt in [place], reporting collateral flow. Review of systems: As above. Review of systems otherwise negative/unremarkable. Family history: Mother at the age of 64 with valvular heart disease. Nephew at the age of 47. Social history: Quit smoking in approximately 2009 after approximately 45 pack years. Occasional alcohol. No drugs. Lives in [place] with his . They have 2 sons. He was unaccompanied today. Allergies Allergy/AdvReac Type Severity Reaction Status Date / Time niacin AdvReac Intermediate SEVERE Verified 03/20/19 13:05 FLUSHING AND ELEV.BSG lovastatin AdvReac Mild SEVERE GI Verified 03/20/19 13:05 simvastatin AdvReac Mild SEVERE GI Verified 03/20/19 13:05 Home Medications Home Medications Medication Instructions Recorded Confirmed Type Levemir U-100 Insulin 35 unit SUBCUT DAILY 02/05/19 03/20/19 History aspirin [Aspir-Low] 81 mg PO DAILY 02/05/19 03/20/19 History clopidogrel 75 mg PO DAILY 02/05/19 03/20/19 History gemfibrozil 600 mg PO BID 02/05/19 03/20/19 History insulin lispro [Humalog KwikPen See Rx Instructions .ROUTE .COMPLEX 02/05/19 03/20/19 History Insulin] metformin 1,000 mg PO BID 02/05/19 03/20/19 History multivitamin 1 tab 02/05/19 03/20/19 History pantoprazole 40 mg PO DAILY 02/05/19 07/23/19 History rosuvastatin 40 mg PO DAILY 02/05/19 07/23/19 History ferrous sulfate 325 mg (65 mg 325 mg PO DAILY #30 tab 02/25/19 03/20/19 Rx iron) tablet cholecalciferol (vitamin D3) 50 2,000 units PO DAILY 03/20/19 03/20/19 History mcg (2,000 unit) capsule metoprolol tartrate [Lopressor] 50 mg PO BID 07/22/19 07/23/19 History Patient History Medical History Anemia 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 CAD (coronary artery disease) distant [place] Hypertension Insulin dependent diabetes mellitus Peripheral vascular disease Surgical History H/O aortic valve replacement History of femoropopliteal bypass Hx of CABG Hx of hernia repair ?aspiration pneumonia post-operatively? Infection of knee I&D Family History (Updated 07/23/19 @ 13:50 by Jason Valdivia PA-C) Father Cirrhosis Mother Diabetes DM Type II Heart disease Social History Preferred Language: Turkish Communication Ability: Effective Box Car Washer Required: No Beliefs That Will Affect Care: None marital status: Current Living Situation: Spouse Other Information That Helps Us Care for You: No Feels Safe at Home: Yes Safety Concerns: Feels Safe At This Time Smoking Status: Former smoker Second Hand Exposure: No ; Hx Alcohol Use: Yes Alcohol type: beer and wine Hx Substance Use: No Physical Exam Physical Exam: Gen.: No acute distress. Alert and oriented. HEENT: Anicteric sclera. Neck: No JVD. No bruits. Bilateral carotid bruits versus radiation of cardiac murmur. Cardiac: PMI was nonpalpable. No ventricular heave. Regular rate and rhythm. Normal S1-S2. 2/6 early peaking systolic ejection murmur. No rubs, or gallops. Pulmonary: Clear to auscultation bilaterally without wheezes, rales, or rhonchi. Abdomen: Soft, nontender, nondistended, with normoactive bowel sounds. No bruits noted. Extremities: 2+ radial pulses bilaterally. 1+ posterior tibialis pulses bilaterally. No edema or cyanosis. Left knee is warm but non erythematous. Psychiatric: Affect appears appropriate. Chest: Sternotomy site is clean, dry, and intact without erythema or discharge. Results & Data Vital Signs (Past 12 Hours) Vital Signs Temp Pulse Resp BP Pulse Ox Pulse Ox 07/23/19 07:48 36.8 C 81 18 143/84 H 94 07/23/19 00:05 91 Laboratory Results Laboratory Results - last 24 hr 07/22/19 07/22/19 07/22/19 18:05 20:56 21:00 WBC RBC Hgb Hct MCV MCH MCHC RDW Std Deviation RDW Coeff of Martin Plt Count MPV Immature Gran % (Auto) Neut % (Auto) Lymph % (Auto) [place] % (Auto) Eos % (Auto) Baso % (Auto) Immature Gran # (Auto) Neut # (Auto) Lymph # (Auto) [place] # (Auto) Eos # (Auto) Baso # (Auto) PT INR Sodium Potassium Chloride Carbon Dioxide Anion Gap BUN Creatinine 1.27 Est Cr Clr Drug Dosing 60.2 Est GFR ( Amer) 64.5 Est GFR (Non-Af Amer) 55.7 BUN/Creatinine Ratio Glucose POC Glucose 156 H 186 H Calcium Magnesium Total Bilirubin AST ALT Alkaline Phosphatase Total Protein Albumin Globulin Albumin/Globulin Ratio 07/23/19 07/23/19 07/23/19 05:58 06:01 08:17 WBC RBC Hgb Hct MCV MCH MCHC RDW Std Deviation RDW Coeff of Martin Plt Count MPV Immature Gran % (Auto) Neut % (Auto) Lymph % (Auto) [place] % (Auto) Eos % (Auto) Baso % (Auto) Immature Gran # (Auto) Neut # (Auto) Lymph # (Auto) [place] # (Auto) Eos # (Auto) Baso # (Auto) PT INR Sodium Potassium Chloride Carbon Dioxide Anion Gap BUN Creatinine 0.96 D Est Cr Clr Drug Dosing 79.7 Est GFR ( Amer) 90.5 Est GFR (Non-Af Amer) 78.1 BUN/Creatinine Ratio Glucose POC Glucose 132 H 129 H Calcium Magnesium Total Bilirubin AST ALT Alkaline Phosphatase Total Protein Albumin Globulin Albumin/Globulin Ratio 07/23/19 07/23/19 07/23/19 10:18 10:18 10:18 WBC 7.64 RBC 2.97 L Hgb 8.9 L Hct 28.9 L MCV 97.3 MCH 30.0 MCHC 30.8 L RDW Std Deviation 52.7 H RDW Coeff of Martin 14.8 H Plt Count 468 H MPV 10.8 H Immature Gran % (Auto) 1.8 Neut % (Auto) 79.6 Lymph % (Auto) 9.0 [place] % (Auto) 7.7 Eos % (Auto) 1.6 Baso % (Auto) 0.3 Immature Gran # (Auto) 0.14 H Neut # (Auto) 6.08 Lymph # (Auto) 0.69 L [place] # (Auto) 0.59 Eos # (Auto) 0.12 Baso # (Auto) 0.02 PT 11.9 INR 1.2 H Sodium 138 Potassium 4.0 Chloride 107 Carbon Dioxide 24 Anion Gap 7.0 BUN 26 H Creatinine 0.89 Est Cr Clr Drug Dosing 85.9 Est GFR ( Amer) 98.3 Est GFR (Non-Af Amer) 84.8 BUN/Creatinine Ratio 29.4 H Glucose 162 H POC Glucose Calcium 9.8 Magnesium 1.9 Total Bilirubin 0.3 AST 19 ALT 32 Alkaline Phosphatase 138 H Total Protein 7.5 Albumin 2.8 L Globulin 4.7 H Albumin/Globulin Ratio 0.6 L Diagnostic Findings Aortic valve replacement and CABG operative report requested and reviewed. Echo 07/23/2019: Normal LV size, wall motion, systolic function. EF 55-60%. Mild LVH. Mildly reduced RV systolic function. Bioprosthetic aortic valve with acceptable transvalvular gradient/velocity. ECG personally reviewed: ECG 07/23/2019: Sinus rhythm 83 bpm. RBBB. Medications Administered Current Inpatient Medications Al Hydrox/Mg Hydrox/Simethicone (Maalox) 30 ml PO Q6H PRN PRN Reason: Dyspepsia Stop: 08/21/19 17:44 Aspirin (Ecotrin Ectab) 81 mg PO QAM [facility] Stop: 08/23/19 08:59 Clopidogrel Bisulfate (Plavix) 75 mg PO QAM [facility] Stop: 08/23/19 08:59 Dextrose (Dextrose 50%) 25 - 50 ml IV UD PRN; Protocol PRN Reason: Hypoglycemia Protocol Stop: 08/21/19 21:59 Diphenhydramine HCl (Benadryl Capsule) 25 mg PO Q8H PRN PRN Reason: Itching Stop: 08/21/19 17:44 Glucagon (Glucagen) 1 mg SQ UD PRN; Protocol PRN Reason: Hypoglycemia Protocol Stop: 08/21/19 21:59 Glucose (Glucose 40%) 15 - 30 gm PO UD PRN; Protocol PRN Reason: Hypoglycemia Protocol Stop: 08/21/19 21:59 Glucose (Dex4 Glucose) 4 - 8 tabs PO UD PRN; Protocol PRN Reason: Hypoglycemia Protocol Stop: 08/21/19 21:59 Hydromorphone HCl (Dilaudid) 0.5 mg IV Q3H PRN PRN Reason: Pain Stop: 08/05/19 17:49 Last Admin: 07/23/19 07:51 Dose: 0.5 mg Documented by: Sodium Chloride (Nss 1000ml) 1,000 mls @ 15 mls/hr IV .Q24H [facility] Stop: 08/21/19 17:44 Last Admin: 07/22/19 20:10 Dose: 15 mls/hr Documented by: Vancomycin HCl 1,000 mg/ (Sodium Chloride) 270 mls @ 125 mls/hr IV Q8H [facility] Stop: 09/03/19 07:59 Last Infusion: 07/23/19 10:39 Dose: Infused Documented by: Insulin Aspart (Novolog Flexpen) 0 units SC ACHS [facility] Stop: 07/23/19 23:59 Last Admin: 07/23/19 08:59 Dose: 5 units Documented by: Insulin Aspart (Novolog Flexpen) 0 units SC Q6 [facility] Stop: 08/23/19 00:00 Magnesium Hydroxide (Milk Of Magnesia) 30 ml PO Q6H PRN PRN Reason: Constipation Stop: 08/21/19 17:44 Metoprolol Tartrate (Lopressor) 50 mg PO BID [facility] Stop: 08/21/19 20:59 Last Admin: 07/23/19 08:33 Dose: 50 mg Documented by: Miscellaneous (Carbohydrates For Hypoglycemia) 15 - 30 gm PO UD PRN PRN Reason: Hypoglycemia Treatment Stop: 08/21/19 21:59 Miscellaneous Information (Consult) 1 ea N/A UD PRN PRN Reason: Consult Stop: 08/21/19 17:54 Miscellaneous Information (Consult Glycemic Management Pharmacy) 1 ea N/A UD PRN PRN Reason: Consult Stop: 08/22/19 11:12 Ondansetron HCl (Zofran) 4 mg IV Q6H PRN PRN Reason: Nausea/Vomiting Stop: 08/21/19 17:44 Oxycodone HCl (Roxicodone Immediate Rel) 5 mg PO Q4H PRN PRN Reason: Pain Stop: 08/05/19 17:49 Last Admin: 07/23/19 08:32 Dose: 5 mg Documented by: Pantoprazole Sodium (Protonix) 40 mg PO DAILY [facility] Stop: 08/22/19 08:59 Last Admin: 07/23/19 08:35 Dose: 40 mg Documented by: Rosuvastatin Calcium (Crestor) 40 mg PO HS [facility] Stop: 08/22/19 20:59 Zolpidem Tartrate (Ambien) 5 mg PO HS PRN PRN Reason: Sleep Stop: 08/21/19 17:44 PG Care Time/CCT Total # of Minutes Spent Total Time Spent with Patient: Total time spent is greater than 50% in coordination of care (as documented) at patient's floor/unit and/or counseling patient: Coding Level of Care Code 45040 Initial Inpt Care Lvl 2 Diagnoses CAD (coronary artery disease) I25.10 Hx of CABG Z95.1 H/O aortic valve replacement Z95.2 HTN (hypertension) I10 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 I08.0 Anemia D64.9
--- NOTE | 2019-07-23 11:59 | Anesthesiology Consultation ---
Date of Service July 23, 2019 Assessment & Plan Chart Review Chart Review: Acceptable Risk for Surgery and medical data entry clerk initiated History Surgery Operation Date: 07/24/19 12:00 Proposed Procedures p Left Incision and Drainage Total Knee Arthroplasty, - Ameya Luna DO s Poly Exchange - Ameya Luna DO Height/Weight Height: 6 ft 2 in Weight: 93.4 kg Allergies Allergy/AdvReac Type Severity Reaction Status Date / Time niacin AdvReac Intermediate SEVERE Verified 03/20/19 13:05 FLUSHING AND ELEV.BSG lovastatin AdvReac Mild SEVERE GI Verified 03/20/19 13:05 simvastatin AdvReac Mild SEVERE GI Verified 03/20/19 13:05 Medications Home Medications Medication Instructions Recorded Confirmed Last Taken Levemir U-100 Insulin 35 unit SUBCUT DAILY 02/05/19 03/20/19 Unknown aspirin [Aspir-Low] 81 mg PO DAILY 02/05/19 03/20/19 Unknown clopidogrel 75 mg PO DAILY 02/05/19 03/20/19 Unknown gemfibrozil 600 mg PO BID 02/05/19 03/20/19 Unknown insulin lispro [Humalog KwikPen See Rx Instructions .ROUTE .COMPLEX 02/05/19 03/20/19 Unknown Insulin] metformin 1,000 mg PO BID 02/05/19 03/20/19 Unknown multivitamin 1 tab 02/05/19 03/20/19 Unknown pantoprazole 40 mg PO DAILY 02/05/19 07/23/19 Unknown rosuvastatin 40 mg PO DAILY 02/05/19 07/23/19 Unknown ferrous sulfate 325 mg (65 mg 325 mg PO DAILY #30 tab 02/25/19 03/20/19 Unknown iron) tablet cholecalciferol (vitamin D3) 50 2,000 units PO DAILY 03/20/19 03/20/19 Unknown mcg (2,000 unit) capsule metoprolol tartrate [Lopressor] 50 mg PO BID 07/22/19 07/23/19 Unknown Active Medications Generic Name Dose Route Start Last Admin Trade Name Freq PRN Reason Stop Dose Admin Hydromorphone HCl 0.5 mg 07/22/19 17:50 07/23/19 07:51 Dilaudid IV 08/05/19 17:49 0.5 mg Q3H PRN Administration Pain Sodium Chloride 1,000 mls @ 15 mls/hr 07/22/19 17:45 07/22/19 20:10 Nss 1000ml IV 08/21/19 17:44 15 mls/hr .Q24H [facility]O Administration KVO Vancomycin HCl 1,000 mg/ 270 mls @ 125 mls/hr 07/23/19 08:00 07/23/19 10:39 Sodium Chloride IV 09/03/19 07:59 Infused Q8H [facility] Infusion Insulin Aspart 0 units 07/23/19 07:30 07/23/19 08:59 Novolog Flexpen SC 07/23/19 23:59 5 units ACHS [facility]O Administration Metoprolol Tartrate 50 mg 07/22/19 21:00 07/23/19 08:33 Lopressor PO 08/21/19 20:59 50 mg BID [facility]O Administration Oxycodone HCl 5 mg 07/22/19 17:50 07/23/19 08:32 Roxicodone Immediate Rel PO 08/05/19 17:49 5 mg Q4H PRN Administration Pain Pantoprazole Sodium 40 mg 07/23/19 09:00 07/23/19 08:35 Protonix PO 08/22/19 08:59 40 mg DAILY ALVARO Administration NPO Date Last Intake of Fluids: 07/22/19 Time Last Intake of Fluids: 23:59 Date Last Intake of Solids: 07/22/19 Time Last Intake of Solids: 23:59 Past Medical History Medical History Anemia CAD (coronary artery disease) distant [place] Hypertension Insulin dependent diabetes mellitus Peripheral vascular disease Past Surgical History Surgical History History of femoropopliteal bypass Hx of CABG Hx of hernia repair ?aspiration pneumonia post-operatively? Infection of knee I&D Social History Smoking Status: Former smoker Hx Alcohol Use: Yes Alcohol type: beer and wine alcohol intake frequency: 0-2 drinks per day Hx Substance Use: No Physical Exam Vital Signs Last Vital Signs Temp 98.2 F 07/23/19 07:48 Pulse 81 07/23/19 07:48 Resp 18 07/23/19 07:48 BP 143/84 H 07/23/19 07:48 Pulse Ox 94 07/23/19 07:48 Testing Laboratory Results 07/23/19 10:18 07/23/19 10:18 PT 11.9 Seconds (9.0-12.0) 07/23/19 10:18 INR 1.2 (0.9-1.1) H 07/23/19 10:18 07/23/19 07/23/19 08:17 05:58 POC Glucose 129 H 132 H Electrocardiogram Date: 07/23/19 Normal sinus rhythm, rate 83 bpm Right bundle branch block Abnormal ECG When compared with ECG of 06-FEB-2019 09:43, [place] interval has decreased T wave inversion now evident in Anterior leads Chest X-Ray Date: 07/23/19 IMPRESSION: Chronic change. No acute process. Echocardiogram Date: 02/09/19 Normal V size. Moderate concentric LVH. LVEF 55-60%. No regional wall motion abnormalities. Normal RV size and function. Severe aortic stenosis. Mild to mod aortic insufficiency. Mild mitral regurgitation.
--- NOTE | 2019-07-23 13:34 | History & Physical Report ---
Date of Service July 23, 2019 Assessment & Plan (1) Prosthetic joint infection: Left septic total knee arthroplasty. Plans are for open irrigation and debridement and polyethylene bearing change versus explant of the total knee prosthesis with implantation of antibiotic spacer. Patient has been started on IV antibiotics. Dr. Sharpe has been consulted and has seen the patient. Appreciate her input. Cardiology has also been consulted and has been in to see the patient as well. Awaiting recommendations. Current culture results obtained at the [facility] office will be faxed over and placed in the chart. Plan for OR tomorrow if medically cleared. History of Present Illness Chief Complaint: Septic left TKA Primary Care Provider: Soren EduardoJacki Jordan Patient is a 74-year-old white male known to our practice who is status post left TKA approximately 8 years ago. The patient since that time has gone through several surgeries for the years and most recently by our group, had debridement of his left foot diabetic ulcer around January 2019. Patient states that he recently underwent aortic valve replacement and a single vessel CABG in the middle of May. He has had no problems since that time with his recovery. He states that approximately 10 days ago he began noticing some increased swelling of his left knee. It was not that uncomfortable however it started to progress and become more painful. He went to our office last and was seen by Dr. Luna's team. An aspiration was done of the left knee (Synovasure) and was sent off for evaluation. Patient was put on oral antibiotics at that time. Results came back being positive for infection earlier this week and the patient was directed to the hospital by Dr. Luna for direct admission and plans for open irrigation and debridement of the left knee. Currently the patient denies any recent fevers or chills. No unusual nausea or vomiting. He states that he has been able to do range of motion of the knee and has been able to weight-bear on the knee without too much difficulty. Allergies Allergy/AdvReac Type Severity Reaction Status Date / Time niacin AdvReac Intermediate SEVERE Verified 03/20/19 13:05 FLUSHING AND ELEV.BSG lovastatin AdvReac Mild SEVERE GI Verified 03/20/19 13:05 simvastatin AdvReac Mild SEVERE GI Verified 03/20/19 13:05 Home Medications Home Medications Medication Instructions Recorded Confirmed Type Levemir U-100 Insulin 35 unit SUBCUT DAILY 02/05/19 03/20/19 History aspirin [Aspir-Low] 81 mg PO DAILY 02/05/19 03/20/19 History clopidogrel 75 mg PO DAILY 02/05/19 03/20/19 History gemfibrozil 600 mg PO BID 02/05/19 03/20/19 History insulin lispro [Humalog KwikPen See Rx Instructions .ROUTE .COMPLEX 02/05/19 03/20/19 History Insulin] metformin 1,000 mg PO BID 02/05/19 03/20/19 History multivitamin 1 tab 02/05/19 03/20/19 History pantoprazole 40 mg PO DAILY 02/05/19 07/23/19 History rosuvastatin 40 mg PO DAILY 02/05/19 07/23/19 History ferrous sulfate 325 mg (65 mg 325 mg PO DAILY #30 tab 02/25/19 03/20/19 Rx iron) tablet cholecalciferol (vitamin D3) 50 2,000 units PO DAILY 03/20/19 03/20/19 History mcg (2,000 unit) capsule metoprolol tartrate [Lopressor] 50 mg PO BID 07/22/19 07/23/19 History Past Med/Surg History Medical History Anemia 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 CAD (coronary artery disease) distant [place] Hypertension Insulin dependent diabetes mellitus Peripheral vascular disease Surgical History H/O aortic valve replacement History of femoropopliteal bypass Hx of CABG Hx of hernia repair ?aspiration pneumonia post-operatively? Infection of knee I&D Family History (Updated 07/23/19 @ 13:50 by Jason Valdivia PA-C) Father Cirrhosis Mother Diabetes DM Type II Heart disease Social History Preferred Language: Vietnamese Communication Ability: Effective Lipstick Molder Required: No Beliefs That Will Affect Care: None marital status: Current Living Situation: Spouse Other Information That Helps Us Care for You: No Feels Safe at Home: Yes Safety Concerns: Feels Safe At This Time Smoking Status: Former smoker Second Hand Exposure: No ; Hx Alcohol Use: Yes Alcohol type: beer and wine Hx Substance Use: No Review of Systems Review of Systems: Denies any history of recent fevers, chills, night sweats unexplained weight loss or weight gain, no flu or cold-like symptoms, no increased cough or sputum production. Denies shortness of breath at rest. Denies recent pneumonia or bronchitis. History of hypertension, CAD with CABG and recent aortic valve replacement. Denies recent chest pain or chest pressure. Denies irregular heartbeat. Denies history of hemoptysis, COPD, asthma. Denies nausea, vomiting, diarrhea, melena, hematochezia. Denies hematuria, pyuria, dysuria. Denies dizziness, lightheadedness, recent migraine headache. Physical Exam Constitutional: WD/WN, vitals as above Eyes: PERRL, conjunctivae normal, anicteric sclerae ENMT: external ear and nose normal, oropharynx normal Neck: trachea midline, no thyromegaly No obvious bruits Respiratory: normal respiratory effort, lungs clear to auscultation Cardiovascular: Rate/Rhythm: regular rate and regular rhythm Heart Sounds: + murmur Gastrointestinal (Abdomen): normal bowel sounds, soft, nontender, no hepatosplenomegaly Musculoskeletal: On examination of his left knee, there is no erythema noted. He does have a large effusion of the left knee at this time that is mildly tense but not overtly tender on palpation. He is warmer to the touch than the right knee. Previous well-healed scar from his TKA. Noted scar over the medial aspect of the left lower extremity due to bypass grafting in the past. Patient is able to go through gentle range of motion of the left knee and I can get him to flexion of approximately 100 degrees. He is close to full extension but has a proximal 5 degree flexion contracture. No swelling or edema noted anywhere else in the left lower extremity. He has a dressing over his great toe for his diabetic ulcer that he has been having treated. Dressing removed. Ulcer essentially healed a this time. No open wound. Small area noted where the ulcer was located at the first met head region. Right lower extremity essentially benign at this time and has good range of motion at the right hip, knee and ankle. Upper extremities are unaffected and he is nontender at the shoulders elbows and wrists with good range of motion. I cannot feel his dorsalis pedis pulses bilaterally. Right foot warm to touch. Left foot cool to touch. Feet with mild neuropathy. Distal pulses of the upper extremities are equal bilaterally. Calves are soft and nontender. Denies any cervical, thoracic, low back pain at this time. Other than his mild neuropathy, he has no gross motor or sensory loss seen at this time. Skin: no rashes, warm and dry Neurologic: Neuropathy of the lower extremities Psychiatric: A+Ox3, euthymic affect Genitourinary: Not performed Results & Data Vital Signs (Past 12 Hours) Vital Signs Temp Pulse Resp BP Pulse Ox 07/23/19 07:48 36.8 C 81 18 143/84 H 94
--- NOTE | 2019-07-23 15:07 | Hospitalist Progress Note ---
Date of Service July 23, 2019 Assessment & Plan (1) Prosthetic joint infection: Plan is for surgery tomorrow with Dr. Luna DVT prophylaxis, pain medication per primary ID on board Patient had a recent open heart surgery with aortic valve replacement and bypass x1 in May. Cardiology is on board to assist in preop assessments and recommendations. Patient is unable to quantify his exercise tolerance as he has not been able to be very active yet since having his valve replacement. CXR is without acute finding or congestion. Patient is somewhat anemic likely secondary to his recent surgery and recovery. Will monitor post op for acute blood loss anemia and transfuse as necessary. Chemistries are acceptable. Defer to cardiology for further optimization for surgery. (2) H/O aortic valve replacement: In May, aortic valve (3) CAD (coronary artery disease): Resume asa, clopidegral when ok with surgery Continue metoprolol (4) DM type 2 (diabetes mellitus, type 2): glycemic consult Hold home metformin (5) Dyslipidemia: continue gemfibrozil (6) GERD (gastroesophageal reflux disease): continue pantoprazole (7) Diabetic ulcer of left foot: Follows wound care clinic in [place] Currently being treated with Keflex but now on IV vanc while inpatient Consult wound care nurse Appreciate ID input Supervising Physician Co-Signing Physician Notes I supervised Aneta Foster NP on this patient's care. I examined the patient today independently of her. I discussed the plan of care with her with the plan being as written in her note except for any following changes/exceptions: None. Doing ok today. No fevers chills. Plan for surgery with Dr. Luna tomorrow. Subjective Mr. Doyle presents for surgery with Dr. Luna on his left knee due to infection. He denies any cp, sob, cough. His only discomfort is knee pain. Patient had quite a few medication changes following surgery in May. Meds reconciled with patient bedside. Pmhx: DM foot ulcer, CAD, htn, DMII, hld, GERD Social: , retired, occasional wine, 40 pyh quit smoking 15 years ago Family: mother of heart valve complications, father was an alcholic and of a heart attack. ROS Constitutional: no chills, aches, sweats or fever Respiratory: no sob,cough, sputum, or wheezing Cardiac: no chest pain, palpitations, edema, orthopnea or lightheadedness GI: no abdominal pain, nausea, vomiting, diarrhea or constipation : no dysuria or hesitancy Extremities: no joint pain or weakness Skin: no rash All other systems reviewed and negative Physical Exam Physical Exam: General: no distress Eyes: normal inspection, PERLL Respiratory: chest non tender, clear to auscultation, normal breath sounds, no respiratory distress, no accessory muscle use Cardiac: regular rate and rhythm, no rub or gallop, no murmur, no edema, no jvd GI/: active bowel sounds, no abd pain or tenderness, soft, non distended Extremities: normal range of motion, normal strength, non tender, edema left knee Neuro/Psych: alert and oriented x 3, normal mood and affect Skin: normal color, dry, chest incision well approximated, left foot wound Results & Data Vital Signs (Past 12 Hours) Vital Signs Temp Pulse Resp BP Pulse Ox 07/23/19 07:48 36.8 C 81 18 143/84 H 94 PG Care Time/CCT Total # of Minutes Spent Total Time Spent with Patient: Total time spent is greater than 50% in coordination of care (as documented) at patient's floor/unit and/or counseling patient: Coding Level of Care Code 52098 Inpt Consult Level 5 Diagnoses Prosthetic joint infection T84.50XA H/O aortic valve replacement Z95.2 CAD (coronary artery disease) I25.10 DM type 2 (diabetes mellitus, type 2) E11.9 Dyslipidemia E78.5 GERD (gastroesophageal reflux disease) K21.9 Diabetic ulcer of left foot E11.621; L97.529
--- NOTE | 2019-07-23 16:15 | Pharmacy Report ---
Pharmacy Glycemic Short Note 2 - Date of Service July 23, 2019 - Glycemic Short BSG Results (Last 24 hours): 07/22/19 07/22/19 07/23/19 18:05 21:00 05:58 Glucose POC Glucose 156 H 186 H 132 H 07/23/19 07/23/19 07/23/19 08:17 10:18 12:04 Glucose 162 H POC Glucose 129 H 127 H OUTPATIENT ANTIDIABETIC REGIMEN: * Levemir 35 units HS * Humalog 4 units with dinner (regardless of BSG) * Metformin 1000 mg BID ASSESSMENT: * Mr. Doyle is admitted with infected left knee with plans for OR tomorrow morning * Discussed with patient his outpatient regimen, reports his levemir dose had recently been reduced to 35 units (50-->40 -->35) due to hypoglycemia in the mornings. Patient reported it would be in the 40s. He told me he does not feel hypoglycemic events and was having trouble with nausea due after surgery in May. * Mr. Doyle reported that he ate all of his breakfast this morning and did not have nausea. He currently has a T2DM diet ordered but will NPO after midnight. * Patient's last levemir dose was on 07/21, he did not receive any basal yesterday, fasting this morning was 129. Outpatient lantus dose likely covering meals as well. Will try to transition to more of a 50:50 split between prandial, lantus while in hospital * Patient is currently receiving novolog with a correction factor of 30 and carb ratio of 8. This is ~weight based stress of 2 dosing and a little tighter than stress of 2 outpatient dosing. Anticipate reduced basal needs with the additional novolog coverage. * Will dose lantus with dinner today, conservatively, as patient will be NPO tomorrow with surgery, uncertain of PO intake for tomorrow and patient reported lows previously. PLAN FOR INPATIENT GLYCEMIC CONTROL: * Hold outpatient oral diabetes medications * Basal insulin * Lantus 16 units with dinner * Bolus insulin * NovoLog per scale ACHS or Q6hrs while NPO * Goal Range: Low 110 mg/dL - High 140 mg/dL * Correction Factor: 30 mg/dL/unit * Nutritional / Prandial insulin per carb ratio of 1 unit per 8 grams CHO consumed
[2019-07-23] MEDS ORDERED: INSULIN GLARGINE SOLOSTAR 100 UNITS/ML 3 ML PEN SC SCH (17:00)
[2019-07-23] MEDS: INSULIN DETEMIR FLEXPEN/FLEX TOUCH 100 UNITS/ML 3ML SC SCH (18:43)
[2019-07-23] MEDS: ROSUVASTATIN CALCIUM 20 MG TAB PO SCH (21:21)
[2019-07-23] MEDS: POLYETHYLENE (MIRALAX) 17 GM PACK PO PRN (22:46)
[2019-07-23] MEDS: DOCUSATE SODIUM 100 MG CAP PO PRN (22:46)
[2019-07-23] MEDS ORDERED: VANCOMYCIN TROUGH ONE (23:30)
[2019-07-24] MEDS ORDERED: INSULIN ASPART 100 UNITS/ML 3 ML PEN SC SCH
[2019-07-24] MEDS: SODIUM CHLORIDE 0.9% 1000ML 1,000 ML IV SCH (00:10)
[2019-07-24] MEDS: VANCOMYCIN HCL 1,000 MG in SODIUM CHLORIDE 0.9% 250 ML IV SCH ×3 (00:13→16:00)
[2019-07-24] MEDS: INSULIN ASPART 100 UNITS/ML 3 ML PEN SC SCH ×4 (00:18→23:50)
[2019-07-24] MEDS: HYDROmorphone INJ 0.5 MG/0.5 ML SYR IV PRN ×6 (02:17→22:31)
[2019-07-24 05:43] LABS: Creatinine Clr Calc Pharmacy 81.4 ml/min; Est GFR (African American) 92.9; Est GFR (Non-African American) 80.1
--- NOTE | 2019-07-24 05:53 | Electrocardiogram Report ---
Test Reason : Blood Pressure : / mmHG Vent. Rate : 083 BPM Atrial Rate : 083 BPM P-R Int : 144 ms QRS Dur : 150 ms QT Int : 402 ms P-R-T Axes : 052 002 -01 degrees QTc Int : 472 ms Normal sinus rhythm Right bundle branch block Cannot rule out Inferior infarct Abnormal ECG When compared with ECG of 06-FEB-2019 09:43, NC interval has decreased Confirmed by Clyde Parker ([id number]) on 07/24/2019 5:53:02 AM Referred By: Ameya Luna Confirmed By:Clyde Parker
[2019-07-24 06:26] LABS: Estimated Average Glucose 151 mg/dl; Hemoglobin A1C 6.9 % (4.5-5.6)
[2019-07-24] MEDS ORDERED: VANCOMYCIN TROUGH ONE (07:30)
[2019-07-24] MEDS ORDERED: CLOPIDOGREL BISULFATE 75 MG TAB PO SCH (09:00)
[2019-07-24] MEDS: METOPROLOL TARTRATE 50 MG TAB PO SCH ×2 (09:12→22:09)
[2019-07-24] MEDS: PANTOprazole 40 MG TAB PO SCH (09:12)
--- NOTE | 2019-07-24 09:56 | Pharmacy Report ---
Pharmacy Abx Dose Progress Nt - Date of Service July 24, 2019 - Pharmacy Dosing Scope The patient is currently receiving the following antimicrobial agents per Pharmacy consult: Vancomycin 1000mg IV every 8 hours for infected prosthetic knee. - Objective Vital Signs (Past 12hrs): Vital Signs Temp Pulse Resp BP Pulse Ox Pulse Ox 07/24/19 07:18 36.8 C 83 19 124/74 91 07/24/19 00:05 91 07/23/19 23:40 37.3 C 83 16 129/74 91 Lab Results (24hrs): Laboratory Tests (24 Hours) 07/24/19 07/23/19 07/23/19 04:59 23:22 10:18 WBC Neut # (Auto) Creatinine 0.94 0.89 Est Cr Clr Drug Dosing 81.4 85.9 Vancomycin Trough 18.6 07/23/19 10:18 WBC 7.64 Neut # (Auto) 6.08 Creatinine Est Cr Clr Drug Dosing Vancomycin Trough Micro Results: 07/23/19 10:18 Aerobic Blood Culture - Pending Blood Anaerobic Blood Culture - Pending 07/23/19 10:30 Aerobic Blood Culture - Pending Blood Anaerobic Blood Culture - Pending - Risk Factors for Resistance * Hospitalization for 48 hours or more within the past 90 days * Antimicrobial use within the last 90 days - Keflex - Assessment & Plan Assessment 74 year old M receiving IV Vancomycin for treatment of infected prosthetic knee, going to OR today for surgery with Dr Luna. ID consult, Dr Sharpe sta andrei to continue IV Vancomycin and await blood cultures and obtain OR cultures. Day # 3 of antimicrobial therapy Plan Patient meets criteria for vancomycin AUC dosing nomogram AUC/JASE is the preferred PK/PD target for vancomycin Target AUC/JASE = 400-600 Trough level of 18.6 mcg/mL is predicted to achieve target AUC/JASE AUC guided dosing is effective and associated with decreased risk of nephrotoxicity Trough levels poorly correlate with AUC/JASE and trough monitoring has been associated with increased risk of nephrotoxicity Continue dose of 1000 mg IV every 8 hours Trough level ordered for: 07/25/19 to ensure patient does not become supratherapeutic. Pharmacy will continue to follow and will adjust dose/frequency as necessary. Thank you.
--- NOTE | 2019-07-24 12:36 | Pharmacy Report ---
Pharmacy Glycemic Short Note 2 - Date of Service July 24, 2019 - Glycemic Short BSG Results (Last 24 hours): 07/23/19 07/23/19 07/24/19 17:43 20:37 00:17 POC Glucose 202 H 203 H 201 H 07/24/19 07/24/19 05:50 11:48 POC Glucose 145 H 131 H OUTPATIENT ANTIDIABETIC REGIMEN: * Levemir 35 units HS * Humalog 4 units with dinner (regardless of BSG) * Metformin 1000 mg BID ASSESSMENT: 07/24/19 * Patient received 48 units of insulin yesterday, 21 basal, 27 pandial. * Pt NPO for surgery today, blood sugars at goal, Lantus on scale, no changes at this time. * A1c 6.9%, at goal, but pt had recently had reports of hypoglycemia, and recent reduction in home dose of Levemir. 07/23/19 * Mr. Doyle is admitted with infected left knee with plans for OR tomorrow morning * Discussed with patient his outpatient regimen, reports his levemir dose had recently been reduced to 35 units (50-->40 -->35) due to hypoglycemia in the mornings. Patient reported it would be in the 40s. He told me he does not feel hypoglycemic events and was having trouble with nausea due after surgery in May. * Mr. Doyle reported that he ate all of his breakfast this morning and did not have nausea. He currently has a T2DM diet ordered but will NPO after midnight. * Patient's last levemir dose was on 07/21, he did not receive any basal yesterday, fasting this morning was 129. Outpatient lantus dose likely covering meals as well. Will try to transition to more of a 50:50 split between prandial, lantus while in hospital * Patient is currently receiving novolog with a correction factor of 30 and carb ratio of 8. This is ~weight based stress of 2 dosing and a little tighter than stress of 2 outpatient dosing. Anticipate reduced basal needs with the additional novolog coverage. * Will dose lantus with dinner today, conservatively, as patient will be NPO tomorrow with surgery, uncertain of PO intake for tomorrow and patient reported lows previously. PLAN FOR INPATIENT GLYCEMIC CONTROL: * Hold outpatient oral diabetes medications * Basal insulin * Lantus with dinner * 16 units for BSG 160mg/dl or less * 21 units for BSG greater than 160mg/dl * Bolus insulin * NovoLog per scale ACHS or Q6hrs while NPO * Goal Range: Low 110 mg/dL - High 140 mg/dL * Correction Factor: 30 mg/dL/unit * Nutritional / Prandial insulin per carb ratio of 1 unit per 8 grams CHO consumed DISCHARGE RECOMMENDATIONS: * A1c at goal at 6.9%, but this may reflect recent hypoglycemia. 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 Continue home DM medications and continue to follow with outpatient provider.
--- NOTE | 2019-07-24 14:00 | Infectious Disease Progress Nt ---
Date of Service July 24, 2019 Assessment & Plan (1) Prosthetic joint infection: pt will continue on IV abx, please send OR cultures. will check blood cultures as well, pending, follow OR findings. Subjective For OR. echo negative for veg. blood cultures pending. remains afebrile on vanco, tolerting well. Results & Data Vital Signs (Past 12 Hours) Vital Signs Temp Pulse Resp BP Pulse Ox 07/24/19 07:18 36.8 C 83 19 124/74 91 PG Care Time/CCT Total # of Minutes Spent Total Time Spent with Patient: Total time spent is greater than 50% in coordination of care (as documented) at patient's floor/unit and/or counseling patient: Coding Level of Care Code 08579 Subseq Hosp Care Lvl 1 Diagnoses Prosthetic joint infection T84.50XA
[2019-07-24] MEDS ORDERED: MIDAZOLAM HCL 1 MG/ML 2ML VIAL ONE (14:04)
[2019-07-24] MEDS ORDERED: ONDANSETRON INJ 2 MG/ML 2 ML VIAL ONE (14:04)
[2019-07-24] MEDS ORDERED: fentaNYL citrate 100 MCG/2 ML VIAL ONE ×3 (14:04→18:37)
[2019-07-24] MEDS ORDERED: PROPOFOL IV EMULSION 10 MG/ML 20 ML VIAL IV ONE (14:04)
[2019-07-24] MEDS ORDERED: LIDOCAINE HCL 2% 2 ML VIAL/AMP(20MG/ML) INFIL ONE (14:04)
[2019-07-24] MEDS ORDERED: BACITRACIN INJ 50,000 UNIT VIAL ONE (14:45)
[2019-07-24] MEDS ORDERED: VANCOMYCIN HCL 1 GM/270 ML BAG ONE (15:43)
--- NOTE | 2019-07-24 15:47 | History & Physical Bridge Note ---
Date of Service July 24, 2019 History & Physical Bridge Note I have examined the patient, reviewed the History & Physical and in the interval since the performance of the History & Physical I have noted the following changes of clinical significance: no changes noted
[2019-07-24 16:36] LABS: Ferritin 253.8 ng/ml (8-388)
[2019-07-24] MEDS ORDERED: HYDROmorphone INJ 2 MG/ML SYR/VIAL ONE (16:46)
--- NOTE | 2019-07-24 16:50 | Hospitalist Progress Note ---
Date of Service July 24, 2019 Assessment & Plan (1) Prosthetic joint infection: Plan is for surgery today with Dr. Luna DVT prophylaxis, pain medication per primary ID on board Patient had a recent open heart surgery with aortic valve replacement and bypass x1 in May. Cardiology is on board to assist in preop assessments and recommendations. Patient is unable to quantify his exercise tolerance as he has not been able to be very active yet since having his valve replacement. CXR is without acute finding or congestion. Patient is somewhat anemic likely secondary to his recent surgery and recovery. Will monitor post op for acute blood loss anemia and transfuse as necessary. Chemistries are acceptable. Defer to cardiology for further optimization for surgery. (2) H/O aortic valve replacement: In May, aortic valve (3) CAD (coronary artery disease): Resume asa, clopidegral when ok with surgery Continue metoprolol (4) DM type 2 (diabetes mellitus, type 2): glycemic consult Hold home metformin (5) Dyslipidemia: continue gemfibrozil (6) GERD (gastroesophageal reflux disease): continue pantoprazole (7) Diabetic ulcer of left foot: Follows wound care clinic in [place] Currently being treated with Keflex but now on IV vanc while inpatient Consult wound care nurse Appreciate ID input Subjective Mr. Doyle has no complaints other than his knee is painful. Awaiting surgery at the time of my assessment ROS Constitutional: no chills, aches, sweats or fever Respiratory: no sob,cough, sputum, or wheezing Cardiac: no chest pain, palpitations, edema, orthopnea or lightheadedness GI: no abdominal pain, nausea, vomiting, diarrhea or constipation : no dysuria or hesitancy Extremities: see HPI Skin: no rash All other systems reviewed and negative Physical Exam Physical Exam: General: no distress Eyes: normal inspection, PERLL Respiratory: chest non tender, clear to auscultation, normal breath sounds, no respiratory distress, no accessory muscle use Cardiac: regular rate and rhythm, no rub or gallop, no murmur, no edema, no jvd GI/: active bowel sounds, no abd pain or tenderness, soft, non distended Extremities: normal range of motion, normal strength, non tender Neuro/Psych: alert and oriented x 3, normal mood and affect Skin: normal color, dry Results & Data Vital Signs (Past 12 Hours) Vital Signs Temp Pulse Resp BP Pulse Ox 07/24/19 15:10 36.8 C 85 18 159/88 H 95 07/24/19 07:18 36.8 C 83 19 124/74 91 PG Care Time/CCT Total # of Minutes Spent Total Time Spent with Patient: Total time spent is greater than 50% in coordination of care (as documented) at patient's floor/unit and/or counseling patient: Coding Level of Care Code 73302 Subseq Hosp Care Lvl 2 Diagnoses Prosthetic joint infection T84.50XA H/O aortic valve replacement Z95.2 CAD (coronary artery disease) I25.10 DM type 2 (diabetes mellitus, type 2) E11.9 Dyslipidemia E78.5 GERD (gastroesophageal reflux disease) K21.9 Diabetic ulcer of left foot E11.621; L97.529
[2019-07-24] MEDS ORDERED: ROCURONIUM BROMID 50MG/5ML SYR ONE (17:06)
[2019-07-24] MEDS ORDERED: SUCCINYLCHOLINE 100MG/5ML SYR ONE (17:06)
--- NOTE | 2019-07-24 18:21 | Post Operative Brief Note ---
Immediate Post Op Note v1 Date of Surgery July 24, 2019 Pre & Post Diagnosis Operation Date: 07/24/19 12:00 Pre-Op Diagnosis: INFECTED TOTAL KNEE ARTHROPLASTY LEFT, LARGE SEPTIC EFFUSION, left knee Post-Op Diagnosis: INFECTED TOTAL KNEE ARTHROPLASTY LEFT, LARGE SEPTIC EFFUSION, left knee I identified the patient and participated in the time-out.: Yes Procedure Operation Date: 07/24/19 12:00 Actual Procedures p Left Incision and Drainage septic effusion knee, extensive irrigation and debridement left total Knee Arthroplasty(Left) - Ameya Luna DO s Polyethylene exchange(Left) - Ameya Luna DO Surgeon Ameya Luna DO Estimator Lumber Kraig Hawkins PA-C Estimated Blood Loss 10 Findings Consistent with Post-Op Diagnosis Specimens Nonepreviously obtained culture positive aspirate for staph species Drains Hemovac Drain (10 Korean x2 drains, Pravena drain superficial skin) Anesthesia Type General Regional Complications none Disposition Accompanied Patient To Recovery: No Disposition: Recovery Room Overlapping Procedure I was present for: the critical portions of procedure. I was immediately available: during the entire case.
[2019-07-24] MEDS ORDERED: ATROPINE SULFATE 0.1 MG/ML 10ML SYR IV PRN (18:37)
[2019-07-24] MEDS ORDERED: LABETALOL HCL IV 5 MG/ML 20ML IV PRN (18:37)
[2019-07-24] MEDS ORDERED: ONDANSETRON INJ 2 MG/ML 2 ML VIAL IV PRN (18:37)
[2019-07-24] MEDS ORDERED: PHENYLEPHRINE 100MCG/ML 5ML SYR IV PRN (18:37)
[2019-07-24] MEDS ORDERED: ePHEDrine sulfate 50 MG/ML AMP IV PRN (18:37)
[2019-07-24] MEDS: fentaNYL citrate 100 MCG/2 ML VIAL IV PRN ×4 (18:38→18:53)
[2019-07-24] MEDS: HYDROmorphone INJ 1 MG/ML SYRINGE IV PRN ×2 (18:58→19:10)
--- NOTE | 2019-07-24 19:56 | Anesthesiology Progress Note ---
Date of Service July 24, 2019 Anesthesia Post Procedure Vital Signs Vital Signs: Temp Pulse Pulse Pulse Resp BP Pulse Ox 07/24/19 19:30 91 H 14 143/86 H 98 07/24/19 19:20 90 13 153/91 H 96 07/24/19 19:10 87 19 135/80 98 07/24/19 19:00 36.5 C 85 22 130/76 100 07/24/19 18:50 79 15 149/67 H 100 07/24/19 18:40 82 21 142/81 H 100 07/24/19 18:32 36.8 C 85 16 111/89 100 07/24/19 15:10 36.8 C 85 18 159/88 H 95 07/24/19 07:18 36.8 C 83 19 124/74 91 07/24/19 00:05 07/23/19 23:40 37.3 C 83 16 129/74 91 07/23/19 21:14 88 135/84 Pulse Ox 07/24/19 19:30 07/24/19 19:20 07/24/19 19:10 07/24/19 19:00 07/24/19 18:50 07/24/19 18:40 07/24/19 18:32 07/24/19 15:10 07/24/19 07:18 07/24/19 00:05 91 07/23/19 23:40 07/23/19 21:14 Pain Intensity Left Knee: Pain Intensity: 4 Transfer of Care Handoff Completed per policy Notes Mental Status: alert / awake / arousable and participated in evaluation Patient Amnestic to Procedure: Yes Nausea / Vomiting: adequately controlled Pain: adequately controlled Airway Patency, RR, SpO2: stable & adequate BP & HR: stable & adequate Hydration State: stable & adequate Anesthetic Complications: no major complications apparent and Pt Satisfied with anesthetic care
--- NOTE | 2019-07-24 20:13 | XRay Report ---
LEFT KNEE 2 VIEWS History: Left total knee arthroplasty. Degenerative arthritis. Postop. FINDINGS: The patient is status post a left total knee arthroplasty. The hardware is intact. No fract ure or dislocation. Skin chema and surgical drains are in place. IMPRESSION: Left total knee arthroplasty. No evidence for hardware complication. ACT 112: Negative or not required by law. Electronically signed by: Ray Sagastume M.D. 07/24/2019 8:12 PM
--- NOTE | 2019-07-24 20:27 | Operative Report ---
DATE OF OPERATION: 07/24/2019 PREOPERATIVE DIAGNOSES: 1. Left infected total knee arthroplasty. 2. Large effusion, left knee. POSTOPERATIVE DIAGNOSES: 1. Left infected total knee arthroplasty. 2. Large effusion, left knee. PROCEDURES: 1. Left knee incision and drainage large septic effusion. 2. Left knee extensive irrigation and debridement. 3. Polyethylene exchange left knee for a Asim 10 mm posterior stabilized polyethylene. SURGEON: Ameya Luna DO. CLINICAL TRIAL SPECIALIST: Kraig Hawkins PA-C, who was present for patient positioning, sterile prep and drape, management of retractors and instruments. He was present through the critical portions of the case including wound closure, application of sterile dressing and transport of the patient to recovery. ANESTHESIA: General endotracheal tube. SPECIMENS: None, previously culture positive aspirate from the left knee. DRAINS: Hemovac x2 and Prevena drain. COMPLICATIONS: None. BLOOD LOSS: 10 mL. PERTINENT HISTORY: This is a 74-year-old gentleman who had a previous total knee arthroplasty in 2010. He had successful arthroplasty. He had no pain. Excellent range of motion. He is very happy with his outcome; however, over the last 3-6 months, he has been trying to treat a foot ulcer on the left foot. He was placed in a total contact cast and was actually having good progress with the foot. He then had to have an aortic valve replacement with a [employer] bioprosthesis. Then began having left knee pain within the last 7 days with an effusion. He had an aspiration performed, is noted to have staph species positive and 50,000 white cells from the aspirate. He was then scheduled for surgery as indicated. All potential risks, benefits, complications, alternatives, rehab, potential for incomplete relief of symptoms, need for further surgery, DVT, PE, , persistent pain, swelling, scarring, weakness, neurovascular injury, wound complications, hardware failure, nonunion, malunion and bone fracture and significant risk of need for 2-stage exchange arthroplasty was discussed with the patient and his . They both decided to proceed with procedure as indicated today. DESCRIPTION OF PROCEDURE: The patient was administered a block in the lower extremity and then taken to the operative suite, placed supine on the Operating Room table. After review of consent and identification of proper operative site, the patient was anesthetized, endotracheal tube was placed. Tourniquet was placed high on left thigh over cast padding. Left lower extremity was then sterilely prepped and draped in usual fashion, elevated. There is no Esmarch used during the case due to the infection and the tourniquet was inflated to 350 mmHg. Next, midline incision was made with a 10 blade scalpel at the site of prior incision. The incision was deepened through subcutaneous tissue to the level of the extensor. Judicious use of electrocautery was performed for any bleeders. Next, the Bovie was used to michelle the superior medial corner of the patella and a second 10 blade scalpel was then used to make a median parapatellar arthrotomy. Large amount of effusion was encountered and this was suctioned out of the joint. The patella was then everted and then a complete synovectomy and resection of pseudocapsule was performed with a 10 blade scalpel. There was noted to be a gelatinous character to the transudate and exudate within the joint. This is the same character as the aspirate which was performed in the office prior to surgery. A 10 blade scalpel was then used to perform a complete extensive synovectomy and resection of pseudocapsule throughout the joint, both medial and lateral gutters and suprapatellar pouch, inferomedial and inferolateral, anteromedial and anterolateral. The extensor mechanism was debrided down to the level of the patella, any excess tissue was excised. Next, the implants were assessed. Femur was noted to be stable. It was back slapped with a bone tamp noted to be stable. The tibial component was assessed with a freer elevator. There is no loosening, no liftoff, no cystic formation. Next, the removal tool was used to remove the polyethylene spacer noted to be intact. There is no evidence of fractionation of the implant. The polyethylene patellar component was also noted to be intact and pristine. The femoral and tibial components noted to have a slight glycocalyx particularly along the tibial component, which was then resected using a combination of rongeur and pituitary rongeur. All surfaces were then curetted with a sharp curette in all compartments, suprapatellar pouch, medial and lateral gutters and the medial and lateral joint spaces. Next, pulsatile lavage with bacitracin approximately 3 liters was then used to cleanse the left knee. Once this was completed, a Versajet with bacitracin laden solution was then used to cleanse all retained arthroplasty components including the femur, tibia and patella. All surfaces were cleansed using the Versajet. There is no evidence of any further devitalized tissue in the compartments of the knee. All surfaces have been extensively debrided and cleansed. Next, top gloves and top sheet were changed. Another 1.5 liters of sterile solution with bacitracin with pulsatile lavage was then used to cleanse the left knee. Once this was completed, then a new 10 mm polyethylene trialed and then eventually a new polyethylene posterior stabilized liner was then inserted into the tibial component and soaked with dilute sterile Betadine for a period of 3 minutes. Once this was completed, approximately 1 liter of sterile bacitracin with saline solution was then used to cleanse the joint once again. Once this was completed, the joint capsule was then closed using interrupted #1 Vicryl sutures with interrupted [id number] stitches. Next, last 500 mL of bacitracin laden lavage solution was then used to cleanse the knee. A double lumen 10-Telugu Hemovac drain was then placed in the knee exiting superolaterally. This was then followed by closure of the dermis with buried interrupted 2-0 Vicryl sutures. Final irrigation was performed with sterile saline with bacitracin and the skin was then closed using skin chema. A Prevena drain was then applied followed by a sterile compressive dressing and Alexis wrap from the toes to groin. Range of motion testing and stability testing was performed. Noted no instability with full range of motion, 0 degrees of flexion to 135 degrees of flexion on the table. The patient was awakened, tourniquet was released, taken to recovery in stable condition. I attest to the content of the Intraoperative Record and any orders documented therein. Any exception s are noted below.
[2019-07-24] MEDS: OXYCODONE HCL IR 5 MG TAB (IMMEDIATE RELEASE) PO PRN (21:00)
[2019-07-24] MEDS: ROSUVASTATIN CALCIUM 20 MG TAB PO SCH (22:09)
[2019-07-24] MEDS: INSULIN DETEMIR FLEXPEN/FLEX TOUCH 100 UNITS/ML 3ML SC SCH (23:49)
[2019-07-25] MEDS: VANCOMYCIN HCL 1,000 MG in SODIUM CHLORIDE 0.9% 250 ML IV SCH ×3 (00:32→17:59)
[2019-07-25] MEDS: OXYCODONE HCL IR 5 MG TAB (IMMEDIATE RELEASE) PO PRN ×4 (00:48→21:05)
[2019-07-25] MEDS: HYDROmorphone INJ 0.5 MG/0.5 ML SYR IV PRN ×4 (01:42→16:12)
[2019-07-25] MEDS: SODIUM CHLORIDE 0.9% 1000ML 1,000 ML IV SCH ×2 (07:04→18:33)
--- NOTE | 2019-07-25 07:29 | Orthopedic Progress Note ---
Date of Service July 25, 2019 Assessment & Plan (1) Prosthetic joint infection: POD#1 Left septic TKA I&D with poly exchange -Pain management-Getting oxycodone and hydromorphone. Will add tyelnol. -DVT prophylaxis-SCDs, aspirin, plavix. -PT/OT -AM labs-pending -Continue antibiotics per ID. No intra op cultures taken. Culture from knee aspiration on 07/16/2019 grew causey sensitive staph lugdunensis. -D/C planning-Likely discharge home when stable and home IV antibiotics set up. Will nee Picc. Subjective POD#1 I&D and poly exchange left septic total knee. He is having a significant amount of pain today. Is getting oxycodone and hydromorphone. May adjust if continues to have significant pain. No other complaints Review of Systems Review of Systems: All systems reviewed & are unremarkable except as noted in HPI & below Physical Exam Physical Exam: Dressing is c/d/i. Hemovac and prevena in place. Toes mobile, good dorsiflexion. No calf tenderness. Distally n/v status and sensation intact. Results & Data Vital Signs (Past 12 Hours) Vital Signs Temp Pulse Pulse Resp BP Pulse Ox 07/25/19 05:18 38.0 C H 110 H 20 129/83 97 07/25/19 00:30 36.7 C 103 H 20 167/92 H 96 07/24/19 23:30 36.2 C L 101 H 18 158/90 H 96 07/24/19 22:30 36.5 C 97 H 18 144/83 H 98 07/24/19 22:09 36.4 C L 94 H 17 138/84 98 07/24/19 21:30 36.5 C 90 18 139/84 95 07/24/19 21:02 36.6 C 93 H 18 141/85 H 99 07/24/19 20:52 36.5 C 92 H 18 128/79 98 07/24/19 20:10 91 H 20 134/72 99 07/24/19 20:00 90 19 131/80 98 07/24/19 19:50 90 15 134/82 97 07/24/19 19:40 36.4 C L 87 17 144/73 H 100 07/24/19 19:30 91 H 14 143/86 H 98
[2019-07-25] MEDS ORDERED: VANCOMYCIN TROUGH ONE (07:30)
[2019-07-25] MEDS: INSULIN ASPART 100 UNITS/ML 3 ML PEN SC SCH ×5 (07:44→20:56)
[2019-07-25 07:58] LABS: Hemoglobin 9.7 g/dL (14.0-18.0); Mean Corpuscular Hemoglobin 30.8 pg (25-34); Mean Corpuscular Hgb Conc 32.3 g/dL (32-36); Mean Corpuscular Volume 95.2 fL (80-100); Mean Platelet Volume 10.1 fL (7.4-10.4); Platelet Count 440 K/uL (130-400); RDW Coefficient of Variation 14.5 % (11.5-14.5); RDW Standard Deviation 50.5 fL (36.4-46.3); Red Blood Count 3.15 M/uL (4.7-6.1); White Blood Count 9.94 K/uL (4.8-10.8)
[2019-07-25] MEDS: METOPROLOL TARTRATE 50 MG TAB PO SCH ×2 (08:06→20:55)
[2019-07-25] MEDS: PANTOprazole 40 MG TAB PO SCH (08:06)
[2019-07-25] MEDS: POLYETHYLENE (MIRALAX) 17 GM PACK PO PRN (08:09)
[2019-07-25 08:30] LABS: BUN Creatinine Ratio 20.8 (10-20); Calcium 9.2 mg/dl (8.5-10.1); Creatinine Clr Calc Pharmacy 102.1 ml/min; Est GFR (African American) 102.2; Est GFR (Non-African American) 88.2; Potassium 4.2 mmol/L (3.5-5.1)
--- NOTE | 2019-07-25 08:58 | Pharmacy Report ---
Pharmacy Abx Dose Short Note - Date of Service July 25, 2019 - Assessment & Plan Assessment 74 year old M receiving vancomycin for treatment of prosthetic knee joint infection Day # 4 of antimicrobial therapy. Blood cultures x 2 (07/23) - no growth Per orthopedic progress note (07/25): knee aspiration culture (07/16/19): causey sensitive Staphylococcus lugdunensis Renal function stable - will continue to follow Plan Vancomycin * Trough level of 18.5 mcg/mL is therapeutic * Continue dose of 1000 mg IV every 8 hours * Goal trough level for joint infection : 15 to 20 mcg/mL * Trough level ordered for: 07/27/19 Pharmacy will continue to follow and will adjust dose/frequency as necessary. Thank you.
[2019-07-25] MEDS ORDERED: ACETAMINOPHEN 500 MG TAB PO PRN (09:08)
[2019-07-25] MEDS: ASPIRIN 81 MG ECTAB PO SCH (10:07)
[2019-07-25] MEDS: CLOPIDOGREL BISULFATE 75 MG TAB PO SCH (10:07)
[2019-07-25] MEDS ORDERED: INSULIN DETEMIR FLEXPEN/FLEX TOUCH 100 UNITS/ML 3ML SC STA (10:56)
--- NOTE | 2019-07-25 12:18 | Hospitalist Progress Note ---
Date of Service July 25, 2019 Assessment & Plan (1) Prosthetic joint infection: s/p polyexchange 07/24 DVT prophylaxis, pain medication per primary ID on board - abx per their rec Will require PICC before home (2) H/O aortic valve replacement: In May, aortic valve (3) CAD (coronary artery disease): Resume asa, clopidegral Continue metoprolol (4) DM type 2 (diabetes mellitus, type 2): glycemic consult Hold home metformin (5) Dyslipidemia: continue gemfibrozil (6) GERD (gastroesophageal reflux disease): continue pantoprazole (7) Diabetic ulcer of left foot: Follows wound care clinic in [place] Was being treated with Keflex but now on IV vanc while inpatient Consult wound care nurse Appreciate ID input (8) Anemia: Likely partially due to blood loss from surgery in May, partially anemia of chronic diseasse normocytic Iron studies with low Iron, TIBC, transferrin Will give Venofer 100mg daily x 3 days monitor CBCs Subjective Mr. Doyle is in a lot of pain at his surgical site. He otherwise does not have complaints. ROS Constitutional: no chills, aches, sweats or fever Respiratory: no sob,cough, sputum, or wheezing Cardiac: no chest pain, palpitations, edema, orthopnea or lightheadedness GI: no abdominal pain, nausea, vomiting, diarrhea or constipation : no dysuria or hesitancy Extremities: no joint pain or weakness Skin: no rash All other systems reviewed and negative Physical Exam Physical Exam: General: no distress Eyes: normal inspection, PERLL Respiratory: chest non tender, clear to auscultation, normal breath sounds, no respiratory distress, no accessory muscle use Cardiac: regular rate and rhythm, no rub or gallop, systolic murmur, no edema, no jvd GI/: active bowel sounds, no abd pain or tenderness, soft, non distended Extremities: normal range of motion, normal strength, non tender Neuro/Psych: alert and oriented x 3, normal mood and affect Skin: normal color, dry Results & Data Vital Signs (Past 12 Hours) Vital Signs Temp Pulse Resp BP Pulse Ox 07/25/19 11:21 37.3 C 99 H 18 131/86 95 07/25/19 07:39 37.4 C 100 H 18 140/76 94 07/25/19 05:18 38.0 C H 110 H 20 129/83 97 07/25/19 00:30 36.7 C 103 H 20 167/92 H 96 PG Care Time/CCT Total # of Minutes Spent Total Time Spent with Patient: Total time spent is greater than 50% in coordination of care (as documented) at patient's floor/unit and/or counseling patient: Coding Level of Care Code 20336 Subseq Hosp Care Lvl 2 Diagnoses Prosthetic joint infection T84.50XA H/O aortic valve replacement Z95.2 CAD (coronary artery disease) I25.10 DM type 2 (diabetes mellitus, type 2) E11.9 Dyslipidemia E78.5 GERD (gastroesophageal reflux disease) K21.9 Diabetic ulcer of left foot E11.621; L97.529 Anemia D64.9
[2019-07-25] MEDS ORDERED: ACETAMINOPHEN 500 MG TAB PO SCH (14:00)
[2019-07-25] MEDS: IRON SUCROSE 100 MG in 0.9 % SODIUM CHLORIDE 100 ML IV SCH (14:16)
--- NOTE | 2019-07-25 14:34 | Anesthesiology Progress Note ---
Date of Service July 25, 2019 Anesthesia Post Procedure Vital Signs Vital Signs: Temp Pulse Pulse Pulse Resp BP Pulse Ox 07/25/19 11:21 37.3 C 99 H 18 131/86 95 07/25/19 07:39 37.4 C 100 H 18 140/76 94 07/25/19 05:18 38.0 C H 110 H 20 129/83 97 07/25/19 00:30 36.7 C 103 H 20 167/92 H 96 07/24/19 23:30 36.2 C L 101 H 18 158/90 H 96 07/24/19 22:30 36.5 C 97 H 18 144/83 H 98 07/24/19 22:09 36.4 C L 94 H 17 138/84 98 07/24/19 21:30 36.5 C 90 18 139/84 95 07/24/19 21:02 36.6 C 93 H 18 141/85 H 99 07/24/19 20:52 36.5 C 92 H 18 128/79 98 07/24/19 20:10 91 H 20 134/72 99 07/24/19 20:00 90 19 131/80 98 07/24/19 19:50 90 15 134/82 97 07/24/19 19:40 36.4 C L 87 17 144/73 H 100 07/24/19 19:30 91 H 14 143/86 H 98 07/24/19 19:20 90 13 153/91 H 96 07/24/19 19:10 87 19 135/80 98 07/24/19 19:00 36.5 C 85 22 130/76 100 07/24/19 18:50 79 15 149/67 H 100 07/24/19 18:40 82 21 142/81 H 100 07/24/19 18:32 36.8 C 85 16 111/89 100 07/24/19 15:10 36.8 C 85 18 159/88 H 95 Pain Intensity Left Knee: Pain Intensity: 10 Notes Mental Status: alert / awake / arousable and participated in evaluation Patient Amnestic to Procedure: Yes Nausea / Vomiting: adequately controlled Pain: see Notes below (Dr. Luna at bedside and aware of pain. Currently talking with patient.) Airway Patency, RR, SpO2: stable & adequate BP & HR: stable & adequate Hydration State: stable & adequate Anesthetic Complications: no major complications apparent
[2019-07-25] MEDS: ROSUVASTATIN CALCIUM 20 MG TAB PO SCH (20:54)
[2019-07-25] MEDS: DOCUSATE SODIUM 100 MG CAP PO PRN (21:05)
[2019-07-26] MEDS: VANCOMYCIN HCL 1,000 MG in SODIUM CHLORIDE 0.9% 250 ML IV SCH ×3 (00:20→18:05)
[2019-07-26] MEDS: HYDROmorphone INJ 0.5 MG/0.5 ML SYR IV PRN ×4 (00:23→19:47)
--- NOTE | 2019-07-26 07:25 | Orthopedic Progress Note ---
Date of Service July 26, 2019 Assessment & Plan (1) Prosthetic joint infection: POD#2 Left septic TKA I&D with poly exchange -Pain management-Much better controlled this morning. -DVT prophylaxis-SCDs, aspirin, plavix. -PT/OT -AM labs-pending -Continue antibiotics per ID. No intra op cultures taken. Culture from knee aspiration on 07/16/2019 grew causey sensitive staph lugdunensis. -D/C planning-Likely discharge home when stable and home IV antibiotics set up. Will nee Picc. Subjective POD#2 I&D with poly exchange left TKA. He is resting comfortably, pain is better controlled this morning. He is in better spirits. No current complaints. Review of Systems Review of Systems: All systems reviewed & are unremarkable except as noted in HPI & below Physical Exam Physical Exam: Left knee dressing is c/d/i. Foot mobile, good dorsiflexion. No calf tenderness. Distally n/v status and sensation intact. Results & Data Vital Signs (Past 12 Hours) Vital Signs Temp Pulse Pulse Resp BP Pulse Ox 07/26/19 07:15 37 C 90 18 124/78 96 07/26/19 03:00 37.1 C 82 18 127/80 96 07/25/19 23:37 89 07/25/19 22:26 37.4 C 87 18 124/81 95
[2019-07-26] MEDS: PANTOprazole 40 MG TAB PO SCH (07:33)
[2019-07-26] MEDS: CLOPIDOGREL BISULFATE 75 MG TAB PO SCH (07:33)
[2019-07-26] MEDS: ASPIRIN 81 MG ECTAB PO SCH (07:33)
[2019-07-26] MEDS: METOPROLOL TARTRATE 50 MG TAB PO SCH ×2 (07:34→20:22)
[2019-07-26 07:39] LABS: Creatinine Clr Calc Pharmacy 118.4 ml/min; Est GFR (African American) 108.5; Est GFR (Non-African American) 93.6
[2019-07-26] MEDS: IRON SUCROSE 100 MG in 0.9 % SODIUM CHLORIDE 100 ML IV SCH (07:42)
[2019-07-26] MEDS: INSULIN ASPART 100 UNITS/ML 3 ML PEN SC SCH ×4 (08:32→20:26)
[2019-07-26] MEDS: OXYCODONE HCL IR 5 MG TAB (IMMEDIATE RELEASE) PO PRN ×2 (11:49→22:28)
--- NOTE | 2019-07-26 13:16 | Hospitalist Progress Note ---
Date of Service July 26, 2019 Assessment & Plan (1) Prosthetic joint infection: s/p polyexchange 07/24 DVT prophylaxis, pain medication per primary ID on board - abx per their rec Will require PICC before home (2) H/O aortic valve replacement: In May, aortic valve (3) CAD (coronary artery disease): Resume asa, clopidegral Continue metoprolol (4) DM type 2 (diabetes mellitus, type 2): glycemic consult Hold home metformin until after discharge (5) Dyslipidemia: continue gemfibrozil (6) GERD (gastroesophageal reflux disease): continue pantoprazole (7) Diabetic ulcer of left foot: Follows wound care clinic in [place] Was being treated with Keflex but now on IV vanc while inpatient Consult wound care nurse Appreciate ID input (8) Anemia: Likely partially due to blood loss from surgery in May, partially anemia of chronic disease normocytic Iron studies with low Iron, TIBC, transferrin Will give Venofer 100mg daily x 3 days, monitor CBCs Thank you for involving us in the care of this patient, medicine will sign off at this time. Please let us know if you have any questions or concerns. Subjective Mr. Doyle pain has improved, he is feeling much better today. No cardiac symptoms ROS Constitutional: no chills, aches, sweats or fever Respiratory: no sob,cough, sputum, or wheezing Cardiac: no chest pain, palpitations, edema, orthopnea or lightheadedness GI: no abdominal pain, nausea, vomiting, diarrhea or constipation : no dysuria or hesitancy Extremities: no joint pain or weakness Skin: no rash All other systems reviewed and negative Physical Exam Physical Exam: General: no distress Eyes: normal inspection, PERLL Respiratory: chest non tender, clear to auscultation, normal breath sounds, no respiratory distress, no accessory muscle use Cardiac: regular rate and rhythm, no rub or gallop, systolic murmur, no edema, no jvd GI/: active bowel sounds, no abd pain or tenderness, soft, non distended Extremities: normal range of motion, normal strength, non tender Neuro/Psych: alert and oriented x 3, normal mood and affect Skin: normal color, dry Results & Data Vital Signs (Past 12 Hours) Vital Signs Temp Pulse Resp BP BP Pulse Ox 07/26/19 11:41 36.8 C 88 18 112/72 95 07/26/19 07:33 36.8 C 58 L 18 137/82 96 07/26/19 07:15 37 C 90 18 124/78 96 07/26/19 03:00 37.1 C 82 18 127/80 96 PG Care Time/CCT Total # of Minutes Spent Total Time Spent with Patient: Total time spent is greater than 50% in coordination of care (as documented) at patient's floor/unit and/or counseling patient: Coding Level of Care Code 38893 Subseq Hosp Care Lvl 2 Diagnoses Prosthetic joint infection T84.50XA H/O aortic valve replacement Z95.2 CAD (coronary artery disease) I25.10 DM type 2 (diabetes mellitus, type 2) E11.9 Dyslipidemia E78.5 GERD (gastroesophageal reflux disease) K21.9 Diabetic ulcer of left foot E11.621; L97.529 Anemia D64.9
--- NOTE | 2019-07-26 15:12 | XRay Report ---
XR chest 1V portable HISTORY: 74 years-old Male left PICC tip placement status post placement of a left-sided PICC COMPARISON: Chest radiograph 07/23/2019 TECHNIQUE: Portable AP view of the chest FINDINGS: Cardiac silhouette is enlarged. Prior median sternotomy. No pneumothorax, pleural effusion, overt pul monary edema or new airspace consolidation. Degenerative changes of the shoulders and spine. A left-s ided PICC is noted with distal tip projected over the aortic arch. IMPRESSION: 1. Left-sided PICC distal tip projects over the aortic arch. Repositioning with follow-up imaging rec ommended. 2. No pneumothorax identified. ACT 112: Negative or not required by law. The above report was generated using voice recognition software. It may contain grammatical, syntax o r spelling errors. Electronically signed by: Tr Zavala M.D. 07/26/2019 3:11 PM
[2019-07-26] MEDS: POLYETHYLENE (MIRALAX) 17 GM PACK PO PRN (17:09)
[2019-07-26] MEDS: INSULIN DETEMIR FLEXPEN/FLEX TOUCH 100 UNITS/ML 3ML SC SCH (17:55)
[2019-07-26] MEDS: ROSUVASTATIN CALCIUM 20 MG TAB PO SCH (20:22)
[2019-07-27] MEDS: VANCOMYCIN HCL 1,000 MG in SODIUM CHLORIDE 0.9% 250 ML IV SCH ×3 (00:06→10:15)
[2019-07-27] MEDS: OXYCODONE HCL IR 5 MG TAB (IMMEDIATE RELEASE) PO PRN ×3 (04:17→18:19)
[2019-07-27] MEDS ORDERED: VANCOMYCIN TROUGH ONE (07:30)
--- NOTE | 2019-07-27 08:40 | Orthopedic Progress Note ---
Date of Service July 27, 2019 Assessment & Plan (1) Prosthetic joint infection: POD#3 1. Left knee incision and drainage large septic effusion. 2. Left knee extensive irrigation and debridement. 3. Polyethylene exchange left knee for a Asim 10 mm posterior stabilized polyethylene -Pain management-Much better controlled this morning. Still having pain this AM but states the pain now is improved from preoperative pain. -DVT prophylaxis-SCDs, aspirin, plavix. -PT/OT -AM labs-pending -Continue antibiotics per ID. No intra op cultures taken. Culture from knee aspiration on 07/16/2019 grew causey sensitive staph lugdunensis. -D/C planning-Likely discharge home when stable and home IV antibiotics set up. Pain control and PT a priority today. If having trouble with ambulation, may require rehab or SNF. Subjective Doing well. Pain is improved but still having trouble walking and moving the knee. PT was painful yesterday. Denies CP, SOB, LH. Physical Exam Constitutional: WD/WN, vitals as above Musculoskeletal: Gait: + antalgic gait (left) Knee: + surgical incision (left knee: Prevena dressing in place and functioning.), + surgical drain present (left knee--still in place. Drained 30 cc last shift.) and + joint line tenderness (generalized left knee tenderness.); knee normal to inspection, no deformity and no skin erythema Neurologic: normal touch/pain/proprioception Psychiatric: A+Ox3, euthymic affect Speech: normal rate/rhythm/volume of speech Results & Data ([facility]) Vital Signs (Past 12 Hours) Vital Signs Temp Pulse Pulse Resp BP Pulse Ox 07/27/19 07:18 36.9 C 85 18 146/87 H 90 07/27/19 03:06 36.9 C 84 20 130/85 94 07/26/19 23:57 87 07/26/19 22:49 37 C 88 18 126/74 92
[2019-07-27] MEDS: INSULIN ASPART 100 UNITS/ML 3 ML PEN SC SCH ×4 (10:10→20:04)
[2019-07-27] MEDS: METOPROLOL TARTRATE 50 MG TAB PO SCH ×2 (10:14→20:01)
[2019-07-27] MEDS: PANTOprazole 40 MG TAB PO SCH (10:14)
[2019-07-27] MEDS: ASPIRIN 81 MG ECTAB PO SCH (10:15)
--- NOTE | 2019-07-27 10:32 | Infectious Disease Progress Nt ---
Date of Service July 27, 2019 Assessment & Plan (1) Prosthetic joint infection: blood cultures negative, no OR cultures done, grew L TACKER on aspiration. reviewed results with ortho. will change to [place] 2g IV daily, would give 6 weeks. will need weekly cbc, cmp, esr while on abx. ok for d/c from ID standpoint when otherwise stable. Subjective s/p OR, tolerated well. no OR culture sent. blood cultures negative. remains on vanco, tolerating well. spoke to ortho this am, outpaient culture growing causey sensitive L TACKER. afebrile. per ortho anticipating d/c home soon with IV abx. Results & Data Vital Signs (Past 12 Hours) Vital Signs Temp Pulse Pulse Resp BP Pulse Ox 07/27/19 07:18 36.9 C 85 18 146/87 H 90 07/27/19 03:06 36.9 C 84 20 130/85 94 07/26/19 23:57 87 07/26/19 22:49 37 C 88 18 126/74 92 Laboratory Results Microbiology 07/23/19 10:30 Blood Aerobic Blood Culture - Preliminary No growth in Aerobic bottle after 48 hours. 07/23/19 10:30 Blood Anaerobic Blood Culture - Final 07/23/19 10:18 Blood Aerobic Blood Culture - Preliminary No growth in Aerobic bottle after 48 hours. 07/23/19 10:18 Blood Anaerobic Blood Culture - Preliminary No growth in Anaerobic bottle after 48 hours. PG Care Time/CCT Total # of Minutes Spent Total Time Spent with Patient: Total time spent is greater than 50% in coordination of care (as documented) at patient's floor/unit and/or counseling patient: Coding Level of Care Code 86908 Subseq Hosp Care Lvl 1 Diagnoses Prosthetic joint infection T84.50XA
[2019-07-27] MEDS: cefTRIAXone SODIUM 2,000 MG in DEXTROSE 5% 50 ML IV SCH (11:34)
[2019-07-27] MEDS: CLOPIDOGREL BISULFATE 75 MG TAB PO SCH (11:35)
[2019-07-27] MEDS: HYDROmorphone INJ 0.5 MG/0.5 ML SYR IV PRN ×3 (11:47→19:52)
--- NOTE | 2019-07-27 11:48 | Pharmacy Report ---
Glycemic Control Progress Note - Date of Service July 27, 2019 - Scope Glycemic Pharmacist consulted for glycemic control to write orders per [facility] inpatient glycemic control protocol. - Objective Accuchecks BSG(last 24 hours):: 07/26/19 07/26/19 07/27/19 16:55 20:24 07:29 POC Glucose 182 H 162 H 146 H 07/27/19 11:24 POC Glucose 151 H HbA1c:: Hemoglobin A1c 6.9 % (4.5-5.6) H 07/24/19 04:59 - Recent Pertinent Medications The patient is currently receiving: * Basal insulin: Lantus 21 units every 24 hours at 1700 (16 units if blood sugar below 160 mg/dL) * Correctional Insulin: Novolog Correction per scale ACHS Goal Range: Low 120 mg/dL - High 150 mg/dL Correction Factor: 30 mg/dL/unit * Prandial insulin: Per carb ratio of 1 unit per 8 grams CHO consumed - Outpatient Anti-Diabetic Meds metformin 1 gm PO BID Levemir 35 units HS Humalog - Assessment & Plan ASSESSMENT: * See progress note from 07/24/19 for more background info, in short: * Pt receiving SQ basal bolus insulin regimen for hyperglycemia secondary to baseline DM (outpatient regimen on hold) and infection (planned for 6 weeks of Rocephin) * Patient is currently receiving an average of 41 units of insulin per day * 21 units of basal insulin * 20 units of prandial/correctional insulin * BSGs ranging 133 - 182 mg/dl over the past 24hrs * Changes needed to insulin regimen: * AM Fasting BSG = 146 mg/dl. This is slightly above goal range for patient based on inpatient targets and co-morbidities. At this point basal will stay the same. If trends up tomorrow increase dose. * Post-prandial BSGs trended upwards yesterday. Tighten slightly. * Total daily dose = ~40-50 units. * Additional notes / comments: continue to hold meds PLAN FOR INPATIENT GLYCEMIC CONTROL: * Oral Agents * Continue to hold outpatient oral diabetes medications. * Basal insulin * Lantus 21 units SQ HS * Bolus insulin * NovoLog per scale ACHS or Q6hrs while NPO * Goal Range: Low 120 mg/dL - High 150 mg/dL * Correction Factor: 25 mg/dL/unit * Nutritional / Prandial insulin per carb ratio of 1 unit per 7 grams CHO consumed RECOMMENDATIONS FOR DISCHARGE: * see note from 07/24/2019 Thank you.
[2019-07-27] MEDS: IRON SUCROSE 100 MG in 0.9 % SODIUM CHLORIDE 100 ML IV SCH (13:14)
[2019-07-27] MEDS: ROSUVASTATIN CALCIUM 20 MG TAB PO SCH (20:00)
[2019-07-27] MEDS ORDERED: INSULIN DETEMIR FLEXPEN/FLEX TOUCH 100 UNITS/ML 3ML SC SCH (21:00)
[2019-07-28 07:01] LABS: Creatinine Clr Calc Pharmacy 112.5 ml/min; Est GFR (African American) 109.8; Est GFR (Non-African American) 94.7
[2019-07-28] MEDS: OXYCODONE HCL IR 5 MG TAB (IMMEDIATE RELEASE) PO PRN ×2 (08:11→16:32)
[2019-07-28] MEDS: ASPIRIN 81 MG ECTAB PO SCH (08:12)
[2019-07-28] MEDS: PANTOprazole 40 MG TAB PO SCH (08:13)
[2019-07-28] MEDS: CLOPIDOGREL BISULFATE 75 MG TAB PO SCH (08:13)
[2019-07-28] MEDS: METOPROLOL TARTRATE 50 MG TAB PO SCH (08:13)
[2019-07-28] MEDS: INSULIN ASPART 100 UNITS/ML 3 ML PEN SC SCH ×2 (08:16→13:59)
[2019-07-28] MEDS: cefTRIAXone SODIUM 2,000 MG in DEXTROSE 5% 50 ML IV SCH (10:48)
[2019-07-28] MEDS: HYDROmorphone INJ 0.5 MG/0.5 ML SYR IV PRN (10:49)
--- NOTE | 2019-07-28 17:57 | Orthopedic Progress Note ---
Date of Service July 28, 2019 Assessment & Plan (1) Prosthetic joint infection: POD#4 1. Left knee incision and drainage large septic effusion. 2. Left knee extensive irrigation and debridement. 3. Polyethylene exchange left knee for a Asim 10 mm posterior stabilized polyethylene -Pain management-Controlled -DVT prophylaxis-SCDs, aspirin, plavix. -PT/OT -AM labs-see above -Continue antibiotics per ID. No intra op cultures taken. Culture from knee aspiration on 07/16/2019 grew causey sensitive staph lugdunensis. -D/C planning-Discharge home when stable and home IV antibiotics set up. Subjective Post Operative Progress Note Patient seen sitting up in bed, comfortable, denies complaints, pain well controlled, no acute issues. Denies CP, SOB, LH. Review of Systems Review of Systems: All systems reviewed & are unremarkable except as noted in HPI & below Constitutional: as per Subjective / HPI Physical Exam Physical Exam: LLE NVSI +EHL/FHL/TA/GS SILT grossly, +2 DP pulse, compartments soft NT, dressing cdi. Constitutional: WD/WN, vitals as above Results & Data ([facility]) Vital Signs (Past 12 Hours) Vital Signs Temp Pulse Pulse Pulse Resp BP BP 07/28/19 16:00 90 07/28/19 15:26 36.8 C 97 H 99 H 20 125/78 163/88 H 07/28/19 15:13 36.8 C 99 H 20 163/88 H 07/28/19 11:13 36.8 C 85 18 127/79 07/28/19 07:40 36.9 C 80 18 125/74 Pulse Ox 07/28/19 16:00 07/28/19 15:26 93 07/28/19 15:13 93 07/28/19 11:13 92 07/28/19 07:40 91 Laboratory Results 07/28/19 07/28/19 07/28/19 Range/Units 15:55 11:23 07:24 Creatinine (0.6-1.4) mg/dl Est Cr Clr Drug Dosing ml/min Est GFR ( Amer) Est GFR (Non-Af Amer) POC Glucose 143 H 207 H 149 H (70-99) mg/dl 07/28/19 07/27/19 Range/Units 06:05 19:59 Creatinine 0.68 (0.6-1.4) mg/dl Est Cr Clr Drug Dosing 112.5 ml/min Est GFR ( Amer) 109.8 Est GFR (Non-Af Amer) 94.7 POC Glucose 157 H (70-99) mg/dl H & H 07/23/19 07/25/19 Range/Units 10:18 07:40 Hgb 8.9 L 9.7 L (14.0-18.0) g/dL Hct 28.9 L 30.0 L (42-52) % Coagulation 07/23/19 Range/Units 10:18 INR 1.2 H (0.9-1.1)
[2019-07-28] MEDS ORDERED: INSULIN DETEMIR FLEXPEN/FLEX TOUCH 100 UNITS/ML 3ML SC SCH (21:00)
--- NOTE | 2019-07-30 15:43 | Discharge Summary ---
Date of Service July 30, 2019 Admission HPI Per Admitting Provider Patient is a 74-year-old white male known to our practice who is status post left TKA approximately 8 years ago. The patient since that time has gone through several surgeries for the years and most recently by our group, had debridement of his left foot diabetic ulcer around January 2019. Patient states that he recently underwent aortic valve replacement and a single vessel CABG in the middle of May. He has had no problems since that time with his recovery. He states that approximately 10 days ago he began noticing some increased swelling of his left knee. It was not that uncomfortable however it started to progress and become more painful. He went to our office last and was seen by Dr. Garcia's team. An aspiration was done of the left knee (Synovasure) and was sent off for evaluation. Patient was put on oral antibiotics at that time. Results came back being positive for infection earlier this week and the patient was directed to the hospital by Dr. Garcia for direct admission and plans for open irrigation and debridement of the left knee. Currently the patient denies any recent fevers or chills. No unusual nausea or vomiting. He states that he has been able to do range of motion of the knee and has been able to weight-bear on the knee without too much difficulty. Principal Diagnosis Septic left TKA Discharge Exam Constitutional WD/WN, vitals as above Musculoskeletal Gait: + antalgic gait (left) Knee: + surgical incision (left knee: Prevena dressing in place and functioning.) and + joint line tenderness (generalized left knee tenderness.); knee normal to inspection, no deformity and no skin erythema Neurologic normal touch/pain/proprioception Psychiatric A+Ox3, euthymic affect Speech: normal rate/rhythm/volume of speech Discharge Data Allergies Allergy/AdvReac Type Severity Reaction Status Date / Time niacin AdvReac Intermediate SEVERE Verified 07/24/19 15:21 FLUSHING AND ELEV.BSG lovastatin AdvReac Mild SEVERE GI Verified 07/24/19 15:21 simvastatin AdvReac Mild SEVERE GI Verified 07/24/19 15:21 Consultations 07/22/19 17:50 Consult Cardiology Routine Consult Infectious Diseases Routine Consult Internal Medicine Routine 07/23/19 11:19 Consult Health Information Management Stat 07/23/19 15:53 Consult Palliative Care Routine Procedures Performed Operation Date: 01/24/20 12:00 Actual Procedures p Left Incision and Drainage Total Knee Arthroplasty(Left) - Ameya Garcia DO s Poly Exchange(Left) - Ameya Garcia DO Hospital Course (1) Prosthetic joint infection: The patient was admitted on 07.22.2019 for an infected left TKA that was growing staph lugdenensis noted on aspiration. He was started on IV Vancomycin and was taken to the OR on 07.24.2019 for I & D and poly exchange. He progressed well each day with pain control and was able to progress with PT on POD #2 through POD #4. His IV antibiotic was changed to Rocephin on POD #3. On POD #4, his home antibiotics were set up and his pain was controlled. He was then discharged home later on POD #4. POD#4 1. Left knee incision and drainage large septic effusion. 2. Left knee extensive irrigation and debridement. 3. Polyethylene exchange left knee for a Asim 10 mm posterior stabilized polyethylene -Pain management-Controlled -DVT prophylaxis-SCDs, aspirin, plavix. -PT/OT -AM labs-see above -Continue antibiotics per ID. No intra op cultures taken. Culture from knee aspiration on 07/16/2019 grew causey sensitive staph lugdunensis. -D/C planning-Discharge home when stable and home IV antibiotics set up. Total Time Total Time Spent Total Time Spent (In Minutes): 90 Total Time Includes: Examination of the Patient, Discharge Planning, Medication Reconciliation and Communication With Other Providers Discharge Plan Discharge Items Patient Disposition: Home - Home Health Services Reason For Visit: INFECTED TOTAL KNEE Discharge Diagnosis: Septic left TKA Activity: Per Instructions section Weightbearing: Full weightbearing Weightbearing Comment: as tolertated with walker Non-emergency contact: Surgeon Call non-emergency contact if: your pain is not controlled, your temperature is above 101.5, your wound has increased redness and your wound has increased drainage Follow-up/Referrals: Soren Ortega DO [Primary Care Provider] - Diet: Carb Consistent or DM2 Addtl Attending Provider Instructions: Resume your care with your Wound Care physician ACTIVITY RECOMMENDATIONS: SELF CARE INSTRUCTIONS AFTER I&D / POLYETHYLENE BEARING CHANGE OF INFECTED KNEE A. You may need to continue a physical therapy program after discharge from the hospital. There are several options available to you. Your doctor will assist you in selecting the best one for you. 1. An out-patient facility 2 to 3 times a week for therapy or home therapy. 2. Continue working on all exercises taught to you in the hospital. Your goals should be to increase bending of your knee to 90 degrees and beyond and to fully straighten your knee. B. You may progress at your own pace from walking with a walker or crutches to a cane; then to no assistive devices. C. Make walking a part of your daily routine. Be up as much as comfortable with rest periods throughout the day. Rest with leg elevation is very important. Use the ice wrap frequently for the first 3-4 weeks. D. There are no restrictions on activities. You may ride in a car, shop, participate in school traffic supervisor and all social activities. E. Wear the long elastic stockings (GE hose) 20 hours a day for 2 weeks after surgery. They can be removed several times a day for laundering and for a bath. F. You may shower, no tub baths until cleared by your doctor. SPECIAL CARE INSTRUCTIONS: VERY IMPORTANT TO READ AND REVIEW A. There are a few signs you need to watch for after you are home. Call [facility] if you notice any of the followin. Increased severe knee pain. Some pain is expected especially when you exercise. 2. Increased swelling in your leg or knee; pain or swelling of the calf muscle in either lower leg. 3. Any fluid drainage from the incision. 4. Shortness of breath or chest pain. B. Please call [facility] at if you have any concerns or questions about your operation or recovery. The doctor or his nurse will return your call promptly. C. You must take antibiotics before dental work, bladder, bowel or other surgery. Your doctor will provide you with a permanent care to carry describing this precaution. IMPORTANT: * REMEMBER TO TAKE ASPIRIN, 81 MG, TWICE DAILY FOR 4 WEEKS UNLESS OTHERWISE DIRECTED. THIS IS YOUR BLOOD THINNER. * CALL IF INCREASED PAIN, REDNESS, DRAINAGE OR FEVER GREATER THAT 101. * WEAR GE HOSE 20 HOURS PER DAY FOR 2 WEEKS. * YOU MAY HAVE A LARGE BAND-AID LIKE DRESSING (SILVERON). THIS WILL REMAIN ON YOUR INCISION FOR 7 DAYS, THEN CAN BE REMOVED. IF INCISION IS LEAKING THROUGH DRESSING, CALL THE OFFICE . * YOU WILL BE RECEIVING IV ANTIBIOTICS FOR 6 WEEKS. HOME HEALTH SERVICES WILL BE HELPING YOU WITH THIS AND MONITORING YOUR DRESSING WELL PROVIDING PHYSICAL THERAPY. YOU WILL HAVE YOUR BLOOD DRAWN WEEKLY. RESULTS WILL BE SENT TO DR TELLEZ AND DR GARCIA. FOLLOW UP VISIT: If appointment is not already scheduled: Please call [facility] to make a follow-up appointment for 2 weeks after your surgery at . Pending Studies at Discharge: No Stand-Alone Forms: My [facility], Smoking Cessation Medications and DC Order Prescriptions: New aspirin [Ecotrin Low Strength] 81 mg Tablet,Delayed Release (Dr/Ec) 81 mg PO QAM 30 Days Qty: 30 RF: 0 acetaminophen 500 mg Tablet 1,000 mg PO Q8H PRN (Reason: pain) 14 Days Qty: 42 RF: 0 ceftriaxone 2 gram recon soln 2 gm IV DAILY 42 Days Qty: 10 RF: 0 oxycodone 5 mg Tablet 5 mg PO Q4H MDD 6 tabs PRN (Reason: pain) Qty: 30 RF: 0 Continued cholecalciferol (vitamin D3) 2,000 unit capsule 2,000 units PO DAILY RF: 0 ferrous sulfate [FeroSul] 325 mg (65 mg iron) tablet 325 mg PO DAILY Qty: 30 RF: 0 multivitamin Tablet 1 tab RF: 0 gemfibrozil 600 mg Tablet 600 mg PO BID RF: 0 pantoprazole 40 mg Tablet,Delayed Release (Dr/Ec) 40 mg PO DAILY RF: 0 metformin 1,000 mg Tablet 1,000 mg PO BID RF: 0 insulin lispro [Humalog KwikPen Insulin] 100 unit/mL Insulin Pen See Rx Instructions .ROUTE .COMPLEX RF: 0 rosuvastatin 40 mg Tablet 40 mg PO DAILY RF: 0 Levemir U-100 Insulin 100 unit/mL Solution 35 unit SUBCUT DAILY RF: 0 clopidogrel 75 mg Tablet 75 mg PO DAILY RF: 0 metoprolol tartrate [Lopressor] 50 mg Tablet 50 mg PO BID RF: 0 Discontinued aspirin [Aspir-Low] 81 mg Tablet,Delayed Release (Dr/Ec) 81 mg PO DAILY RF: 0 Discharge Orders: Discharge Order (Routine); Ordered 07/28/19 Ordered By: Jason Valdivia Admission Data Admit Date/Time: 07/22/19 17:39 Attending Provider: Ameya Garcia Admit Provider: Ameya Garcia Primary Care Provider: Soren Ortega Other Providers: Karan Johnson ; Braulio Dotson ; Wilmer Casillas ; Jason Dunn ; Clifford Harding ; De Whalen Jr ; Clyde Parker ; Cindy Talavera ; Claudia Schmidt ; Deep Hernandez ; Deep Carrion ; Km Mayo ; Sumit Bermudez ; Estela Dewey ; Steffi Suazo ; Estela Tellez ; Steven Forde ; Jacki Prado ; Mary Hernandez ; Baldev Johnson ; Sumit Piña ; Pamella León ; Trent Zuniga ; Primitivo Lock ; Royer Newman ; Moni Vazquez ; Angy Workman ; Grazyna Smith ; Ric Cancino ; Kathia Leyva ; Floyd Bernal ; Truman Bryant ; Jacki Tan ; Qamar Montague ; Aneta Foster ; Akira Rodrigues ; Deep Zapien ; Baldev Travis ; Kati Griffin ; Annie Flores ; Saurav Delong ; George Hankins ; Roger Greco ; Darrell Goodson ; Michael Mora ; Rhys Perry ; Tan Bermudez Other Interventions: Discharge Summary Assessment (RN) Last Done: 07/28/19 15:26 DC Date/Time DO NOT enter until pt leaves facility: 07/28/19 17:00
== END 2019-07-28 17:00 | disposition home health service (06) | DRG 464 ==
LOC: 3N 17:39 → 2W 07-24 18:25

== ENCOUNTER 2024-03-16 08:12 | Inpatient (IN) ==
--- NOTE | 2024-03-11 11:06 | Anesthesiology Consultation ---
Date of Service March 11, 2024 Assessment & Plan (1) Encounter for pre-operative examination: Plan - Case discussed in detail with Dr. Armijo including new bifascicular block who advised nothing additional is needed. 02/19/24 EKG to be faxed to [facility] for continuity of care. - check BSG am DOS. - ER [facility] 02/19/24: "... I therefore did discuss the patient's presentation and x-ray imaging results with the on-call [facility] orthopedist, Dr. Ribera, who did also review the patient's x-ray imaging. At this time Dr. Ribera recommended aspiration/drainage of the fluctuant mass to the patient's left knee and the patient can follow-up with [facility] in the office and at this time be discharged on antibiotics. Patient does have range of motion at the left knee intact, I have low suspicion for septic arthritis at this time. In addition he is afebrile without any leukocytosis. The fluctuant lesion to the left knee was incised and drained with a mild amount of purulent material expelled from the wound. 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 Medication instructions provided according to the PAT guidelines. History Surgery Operation Date: 03/16/24 09:50 Proposed Procedures p Left Lower Extremity Above the Knee Amputation - Jesus Bautista MD Height/Weight Height: 6 ft 3 in Weight: 88.4 kg Allergies Allergy/AdvReac Type Severity Reaction Status Date / Time raspberry Allergy Intermediate uncomfortable Verified 03/11/24 11:18 feeling ? details niacin AdvReac Intermediate SEVERE Verified 03/11/24 11:18 FLUSHING AND ELEV.BSG lovastatin AdvReac Mild SEVERE GI Verified 03/11/24 11:18 simvastatin AdvReac Mild SEVERE GI Verified 03/11/24 11:18 Medications Home Medications Medication Instructions Recorded Confirmed Last Taken clopidogrel 75 mg tablet 75 mg PO QAM 02/05/19 03/11/24 Unknown rosuvastatin 40 mg tablet 40 mg PO HS 02/05/19 03/11/24 Unknown cholecalciferol (vitamin D3) 50 2,000 units PO QAM 03/20/19 03/11/24 Unknown mcg (2,000 unit) capsule ferrous sulfate 325 mg (65 mg 325 mg PO [facility] 09/03/19 03/11/24 Unknown iron) tablet (FeroSul) cephalexin 500 mg capsule (Keflex) 500 mg PO BID #60 caps 11/10/19 03/11/24 Unknown Probiotic Singh Brand 1 dose PO QA 03/11/24 03/11/24 Unknown acetaminophen 500 mg tablet 1,000 mg PO BID 03/11/24 03/11/24 Unknown (Acetaminophen Extra Strength) aspirin 81 mg tablet,delayed 81 mg PO QAM 03/11/24 03/11/24 Unknown release bumetanide 1 mg tablet 1 mg PO M 03/11/24 03/11/24 Unknown carvedilol 6.25 mg tablet 6.25 mg PO BID 03/11/24 03/11/24 Unknown cyanocobalamin (vitamin B-12) 1,000 mcg PO QAM 03/11/24 03/11/24 Unknown 1,000 mcg capsule eplerenone 25 mg tablet 25 mg PO DAILY 03/11/24 03/11/24 Unknown famotidine 10 mg tablet 10 mg PO QAM 03/11/24 03/11/24 Unknown insulin degludec 100 unit/mL (3 36 unit subcut 03/11/24 03/11/24 Unknown mL) subcutaneous pen (Tresiba FlexTouch U-100 insulin) oxycodone 10 mg tablet,extended 10 mg PO BID 03/11/24 03/11/24 Unknown release,12 hr oxycodone 5 mg tablet 5 mg PO TID PRN pain 03/11/24 03/11/24 Unknown tamsulosin 0.4 mg capsule 0.8 mg PO HS 03/11/24 03/11/24 Unknown Past Medical History Medical History (Updated 03/12/24 @ 11:08 by Teressa Lawton PA-C) 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 s/p aortic valve replacement Arthritis Bifascicular block BPH (benign prostatic hyperplasia) CAD (coronary artery disease) 1 vessel bypass > 5 years ago Carotid artery stenosis 50-69% TRAVIS 2017 Diabetes mellitus, type 2 IDDM Difficult intravenous access GERD (gastroesophageal reflux disease) controlled, stable per pt History of anemia History of blood transfusion ivelisse-operatively, most recently 10/2023 Hx of myocardial infarction 1996>failed heart stent placement @ [facility] Hyperlipidemia Hypertension controlled, stable per pt Peripheral neuropathy Peripheral vascular disease Post traumatic stress disorder Patient denies h/o stroke, seizures, heart failure, blood clots/DVTs or blood transfusions. 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 Aortic valve replaced History of anesthesia reaction 2017 [facility] [place] [facility] surgery>aspirated ( states has PTSD with anesthesia now since experience) History of cardiac cath before 2019/no stents History of cholecystectomy 10/2023 [facility] History of colonoscopy History of femoropopliteal bypass 2017 History of hammertoe correction right History of revision of total knee arthroplasty left>with spacer (active infection) History of total knee replacement left 2010 Hx of CABG May 2019; one vessel bypassed [facility] Hx of hernia repair Infection of knee I&D Mitral valve replaced 2018 [facility] Past Anesthesia History No Family Hx of Anesthesia Complications and Other (see above) History of PONV No Hx of PONV and No Hx of Motion Sickness Social History Smoking Status: Current some day smoker (occasional cigars) Do You Dip or Chew Tobacco: No Hx Alcohol Use: Yes Alcohol type: beer and wine alcohol intake frequency: 0-2 drinks per day Hx Substance Use: No Review of Systems Patient's tested positive for COVID 02/26/24. Patient denies chest pain, shortness of breath, dyspnea on exertion, snoring, witnessed apneas, fever, chills, cough, wheezing, or palpitations. Physical Exam Vital Signs Vitals BP 128/65 P 72 TEMP 98.3 SP02 96% on RA RESP 18 Physical Patient resting comfortably in wheelchair in no acute distress, alert and oriented, responding appropriately throughout visit Full cervical extension range of motion without pain TMD 3.5 finger breadths Mallampati Score 2 Dentition: intact, denies chipped or loose teeth, caps/crowns, implants or bridges Lungs: normal respiratory effort. Good air movement, clear throughout to auscultation, no adventitious breath sounds Cardiac: regular rate and rhythm, no murmurs noted Carotid arteries: negative bruit bilat Lab Results Anesthesia Preop Results Results Anesthesia Widget: WBC 7.13 K/ul (4.8-10.8) 02/19/24 Hgb 11.8 g/dl (14.0-18.0) L 02/19/24 Hct 36.6 % (42.0-52.0) L 02/19/24 Plt 298 K/uL (130-400) 02/19/24 Na 138 mmol/L (136-145) 02/19/24 K 4.4 mmol/L (3.5-5.1) 02/19/24 Cl 103 mmol/L (98-107) 02/19/24 CO2 27 mmol/L (21-32) 02/19/24 BUN 21 mg/dl (6-23) 02/19/24 Creat 0.75 mg/dl (0.6-1.4) 02/19/24 Glucose Level 206 mg/dl (70-99(Fasting)) H 02/19/24 PT 10.4 Seconds (9.0-12.0) 03/11/24 PTT 25 Seconds (21-31) 03/11/24 INR 1.0 (0.9-1.1) 03/11/24 Blood Type A Positive 03/11/24 Antibody Screen NEGATIVE 03/11/24 Testing Laboratory Results 10/30/23 A1c 6.2% Electrocardiogram Date: 02/19/24 Sinus rhythm with 1st degree AV block with occasional PVCs, rate 83 bpm RBBB Left anterior fascicular block bifascicular block LVH Left anterior fascicular block now present vs 07/23/19 Chest X-Ray Date: 02/19/24 *1view* No acute process. Echocardiogram Date: 01/23/20 EF 55-60% No LV regional wall motion abnormalities Mild cLVH Bioprosthetic aortic valve with acceptable transvalvular gradient/velocity Type 1 diastolic dysfunction
--- NOTE | 2024-03-11 11:34 | PAT Medication Instructions ---
Medication Instructions Date of Service March 11, 2024 Home Medications Medication Instructions Recorded cephalexin 500 mg capsule (Keflex) 500 mg PO BID #60 caps 11/10/19 clopidogrel 75 mg tablet 75 mg PO QAM rosuvastatin 40 mg tablet 40 mg PO HS cholecalciferol (vitamin D3) 50 mcg (2,000 unit) capsule 2,000 units PO QAM ferrous sulfate 325 mg (65 mg iron) tablet (FeroSul) 325 mg PO QAM cephalexin 500 mg capsule (Keflex) 500 mg PO BID Probiotic Singh Brand 1 dose PO QAM acetaminophen 500 mg tablet (Acetaminophen Extra Strength) 1,000 mg PO BID aspirin 81 mg tablet,delayed release 81 mg PO QAM bumetanide 1 mg tablet 1 mg PO QAM carvedilol 6.25 mg tablet 6.25 mg PO BID cyanocobalamin (vitamin B-12) 1,000 mcg capsule 1,000 mcg PO QAM eplerenone 25 mg tablet 25 mg PO DAILY famotidine 10 mg tablet 10 mg PO QAM insulin degludec 100 unit/mL (3 mL) subcutaneous pen (Tresiba FlexTouch U-100 insulin) 36 unit subcut HS oxycodone 10 mg tablet,extended release,12 hr 10 mg PO BID oxycodone 5 mg tablet 5 mg PO TID PRN tamsulosin 0.4 mg capsule 0.8 mg PO HS ASK your prescriber and surgeon clopidogrel 75 mg tablet 75 mg PO QAM aspirin 81 mg tablet,delayed release 81 mg PO QAM DO NOT take the morning of surgery cholecalciferol (vitamin D3) 50 mcg (2,000 unit) capsule 2,000 units PO QAM ferrous sulfate 325 mg (65 mg iron) tablet (FeroSul) 325 mg PO QAM card.io Brand 1 dose PO QAM bumetanide 1 mg tablet 1 mg PO QAM cyanocobalamin (vitamin B-12) 1,000 mcg capsule 1,000 mcg PO QAM eplerenone 25 mg tablet 25 mg PO DAILY Take morning of surgery With a small sip of water, OTHERWISE NOTHING TO EAT OR DRINK AFTER MIDNIGHT: cephalexin 500 mg capsule (Keflex) 500 mg PO BID acetaminophen 500 mg tablet (Acetaminophen Extra Strength) 1,000 mg PO BID carvedilol 6.25 mg tablet 6.25 mg PO BID famotidine 10 mg tablet 10 mg PO QAM oxycodone 10 mg tablet,extended release,12 hr 10 mg PO BID oxycodone 5 mg tablet 5 mg PO TID PRN(if needed) Take evening before surgery rosuvastatin 40 mg tablet 40 mg PO HS cephalexin 500 mg capsule (Keflex) 500 mg PO BID acetaminophen 500 mg tablet (Acetaminophen Extra Strength) 1,000 mg PO BID carvedilol 6.25 mg tablet 6.25 mg PO BID insulin degludec 100 unit/mL (3 mL) subcutaneous pen (Tresiba FlexTouch U-100 insulin) 36 unit subcut HS oxycodone 10 mg tablet,extended release,12 hr 10 mg PO BID oxycodone 5 mg tablet 5 mg PO TID PRN(if needed) tamsulosin 0.4 mg capsule 0.8 mg PO HS Other Notes If you have any questions please call us at [phone] or [phone] or [phone] or [phone]
[~2024-03-16 08:12] MED LIST changes: -AMR2 PO; -ASCA500 PO; -ASPEC81 PO; -ATEN-175 PO; -CHOL100010 PO; -CRS20 PO; -DVN80 PO; -GABA-112 PO; -GABA-113 PO; -GEMF600T5 PO; -GLC500 PO; +LIDOCAINE 2% 2 ML VIAL/AMP(20MG/ML) INFIL ONE; +MIDAZOLAM HCL 1 MG/ML 2ML VIAL ONE; -MULT-506 PO; -NTRGSL/4 UT; +ONDANSETRON INJ 2 MG/ML 2 ML VIAL ONE; +PROPOFOL IV EMULSION 10 MG/ML 20 ML VIAL IV ONE; +fentaNYL citrate PF 100 MCG/2 ML VIAL ONE
--- NOTE | 2024-03-16 08:36 | History & Physical Report ---
Date of Service March 16, 2024 History of Present Illness Primary Care Provider: Liliana Georges Name: ALEN DOYLE Patient Number: [id number] : 1945 Date of Service: 03/11/2024 Chief Complaint: _New patient consultation for left leg knee infection HPI: _Mr. Doyle is an elderly male who presents to Dr. Bautista's vascular surgery clinic today due to a severe and chronic left knee infection, and to discuss above-knee amputation. According to the patient and his , the patient had a left total knee arthroplasty performed around 2009, and did well until 2018, at which time his knee prosthesis became infected. He has since undergone multiple attempts to get rid of this infection, including washouts, injections of antibiotics, removal of hardware and placement of antibiotic spacer, all to no avail. He is currently on suppressive antibiotics by taking 1000 mg cefadroxil twice daily. Despite this, he developed a superficial abscess over the knee for which she was seen at the [facility] emergency department a few weeks ago, and underwent incision and drainage. This area continues to drain yellowish fluid, but patient has also developed a new area of a swollen spot with a black scab over the top medial to this. He denies any fevers chills nausea vomiting chest pain, shortness of breath, abdominal pain, rest pain, foot discoloration. He does state that he has considerable roselia n in his left knee and is unable to straighten his leg out due to the severe pain. He was previously seen multiple center medical specialist, as well as his infectious disease specialist, all of whom state that there are no further surgical options to eradicate the infection, and that they suggested he consider above-knee amputation. Patient states that he is willing to undergo the above- knee amputation, as he is very frustrated with the length of his current illness and being unable to do all the things he wants to do, as well as the severe pain he suffers every day. Review of systems: A total of 14 systems were reviewed and are negative aside from what is related in his HPI Current Home Meds: (Last Updated 03/11 08:34) acetaminophen (Tylenol Extra Strength 500 mg oral tablet) 1,000 mg PO q6h PRN: as needed for pain aspirin (aspirin 81 mg oral delayed release tablet) 81 mg PO Daily bifidobacterium-lactobacillus (Probiotic Formula) bumetanide (bumetanide 1 mg oral tablet) TAKE ONE TABLET BY MOUTH EVERY DAY carvedilol (carvedilol 6.25 mg oral tablet) TAKE ONE TABLET BY MOUTH TWICE A DAY WITH FOOD cefadroxil (cefadroxil 500 mg oral capsule) 1,000 mg PO q12h cholecalciferol (Vitamin D3 50 mcg (2000 intl units) oral tablet) clopidogrel (clopidogrel 75 mg oral tablet) 75 mg PO Daily cyanocobalamin (Vitamin B12 1000 mcg oral tablet) 1,000 mcg PO Daily eplerenone (eplerenone 25 mg oral tablet) 25 mg PO Daily famotidine (famotidine 10 mg oral tablet) 10 mg PO Daily ferrous sulfate (FeroSul 325 mg (65 mg elemental iron) oral tablet) 325 mg PO Daily insulin glargine (insulin glargine 100 units/mL subcutaneous solution) 20 unit subQ qhs oxyCODONE (oxyCODONE 10 mg oral tablet, extended release) 10 mg PO q12h oxyCODONE (oxyCODONE 5 mg oral tablet) TAKE ONE TABLET BY MOUTH EVERY 6 HOURS NEEDED FOR PAIN SCALE 4-10) rosuvastatin (rosuvastatin 40 mg oral tablet) 40 mg PO Daily tamsulosin (tamsulosin 0.4 mg oral capsule) 0.4 mg PO Daily Allergies and Sensitivities: simvastatin(Diarrhea) Mevacor(Diarrhea) Past Medical History: Problems: Tobacco user Infection of left knee Type 2 diabetes mellitus Anemia GERD Peripheral arterial disease Hyperlipidemia Aortic stenosis Hypertension COPD Arthritis Surgical history: Positive for aortic valve placement, left leg femoral to popliteal artery bypass. Cardiac catheterization, colonoscopy, cholecystectomy, hernia repair, left total knee replacement, removal of the left knee hardware placement of antibiotic spacer, multiple washouts of the left knee Family history: Essentially negative Social history: Patient smoked 1 pack a day for about 30 years. He denies alcohol or illicit drug use. He is and lives with his . OBJECTIVE Vitals: Last Updated 03/11/24 08:43 Date Temp BP Location Pulse RR SpO2 Pain 03/11/24 116/66 Right Arm 03/11/24 100/64 Left Arm 70 94 0 Vital Signs are the last 3 documented. No Orthostatic Data Available No Height/Weight Data Available Physical Exam Constitutional: In general patient is a chronically ill appearing elderly male in no distress. He is alert and oriented vital deficits. His carotids not measured a bruit. His heart is regular, his lungs are decreased but clear. His abdomen soft nontender with marked bowel sounds in all 4 quadrants. His brachial and radial pulses are +3. His right femoral pulses +3. His left, pulses +3. Distal pulses are nonpalpable, but his bilateral DP pulses are easily dopplerable, PT pulses are faintly dopplerable. Right foot demonstrates surgical removal of all toes. Left medial mid leg demonstrates a long incision which is well-healed, appears to be the location of his femoropopliteal bypass, likely with vein conduit. His left knee is swollen, with tight skin, exquisitely tender, unable to straighten. Additionally he has an open area in the anterior portion which is draining serosanguineous and bloody drainage. His medial knee demonstrates an area of fluctuance about 2 cm in diameter, with a black eschar on the top. There is no drainage from this at this point. ASSESSMENT: _ PLAN: _ 1 ) _left knee infection Patient is a history of a left total knee arthroplasty infection, and subsequent removal of hardware with antibiotic spacer placement. He is on suppressive ant ibiotics, however, he has now began to develop cutaneous abscesses. One has been drained in the emergency department, and he now appears to have another 1 medial to that location. He also has severe chronic pain and is looking for relief of this. Patient was also seen by Dr. Bautista in the office today. After review of his chart information and discussion with the patient and his , we did recommend that patient consider an above-knee amputation in order to eradicate the persistent infection. The procedure risks, including but not limited to bleeding, blood clots, heart attack, , wound infection leading to need for further surgery, benefits and alternatives were discussed with the patient by myself at Dr. Bautista's request. Patient expresses understanding and agreement to proceed. 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 Thank you for letting us participate in the care of this patient. I have personally spent_45__ minutes performing algd-um-hynr and gjd-[id number] activities on this date of service.Time does not include separately reported services. Activities Include: x__ review of the medical record _x_ obtaining a history _x_ physical exam/evaluation _x_ review labs _x_ review radiology reports _x_ counseling/educating patient/family/caregiver __ discussion/referral to other healthcare professional _x_ documenting care in the medical record __ independent interpretation of results _x_ communication of results to patient/family/caregiver x__ coordination of care Signature Line Electronic Signature on File CC: Liliana Georges MD [address] [facility] [address] [facility] [id number] * CC: Vito Gilbert MD [address] [place] [id number] * Electronically Reviewed/Signed by: Shanna Hanna PA-C Author Signature Dt/Tm:03/11/2024 11:43 AM [facility] [place] [place] [address] Result Type: HVI Outpt Note Date of Service: March 11, 2024 11:18 EDT Authorization Status: Final Author or Import Date: RENO Hanna Lynn on March 11, 2024 11:43 EDT Verified By: RENO Hanna Lynn on March 11, 2024 11:43 EDT Encounter info: [id number], [place] [id number], Clinic, 03/11/2024 - 03/11/2024 Allergies Allergy/AdvReac Type Severity Reaction Status Date / Time raspberry Allergy Intermediate uncomfortable Verified 03/11/24 11:18 feeling ? details niacin AdvReac Intermediate SEVERE Verified 03/11/24 11:18 FLUSHING AND ELEV.BSG lovastatin AdvReac Mild SEVERE GI Verified 03/11/24 11:18 simvastatin AdvReac Mild SEVERE GI Verified 03/11/24 11:18 Home Medications Medication Instructions Recorded Confirmed Type clopidogrel 75 mg tablet 75 mg PO QAM 02/05/19 03/11/24 History rosuvastatin 40 mg tablet 40 mg PO HS 02/05/19 03/11/24 History cholecalciferol (vitamin D3) 50 2,000 units PO QAM 03/20/19 03/11/24 History mcg (2,000 unit) capsule ferrous sulfate 325 mg (65 mg 325 mg PO QAM 09/03/19 03/11/24 History iron) tablet (FeroSul) cephalexin 500 mg capsule (Keflex) 500 mg PO BID #60 caps 11/10/19 03/11/24 Rx Probiotic Singh Brand 1 dose PO QAM 03/11/24 03/11/24 History acetaminophen 500 mg tablet 1,000 mg PO BID 03/11/24 03/11/24 History (Acetaminophen Extra Strength) aspirin 81 mg tablet,delayed 81 mg PO QAM 03/11/24 03/11/24 History release bumetanide 1 mg tablet 1 mg PO QAM 03/11/24 03/11/24 History carvedilol 6.25 mg tablet 6.25 mg PO BID 03/11/24 03/11/24 History cyanocobalamin (vitamin B-12) 1,000 mcg PO QAM 03/11/24 03/11/24 History 1,000 mcg capsule eplerenone 25 mg tablet 25 mg PO DAILY 03/11/24 03/11/24 History famotidine 10 mg tablet 10 mg PO QAM 03/11/24 03/11/24 History insulin degludec 100 unit/mL (3 36 unit subcut HS 03/11/24 03/11/24 History mL) subcutaneous pen (Tresiba FlexTouch U-100 insulin) oxycodone 10 mg tablet,extended 10 mg PO BID 03/11/24 03/11/24 History release,12 hr oxycodone 5 mg tablet 5 mg PO TID PRN pain 03/11/24 03/11/24 History tamsulosin 0.4 mg capsule 0.8 mg PO HS 03/11/24 03/11/24 History Past Med/Surg History Problem List (Updated 03/12/24 @ 11:08 by Teressa Lawton PA-C) Encounter for pre-operative examination Prosthetic joint infection Anemia Diabetic ulcer of left foot GERD (gastroesophageal reflux disease) H/O aortic valve replacement Prosthetic joint infection Murmur, cardiac Foot abscess, left Staph aureus infection Infection of left foot History of femoropopliteal bypass Dyslipidemia CAD (coronary artery disease) HTN (hypertension) DM type 2 (diabetes mellitus, type 2) Peripheral vascular disease Diabetic ulcer of foot associated with diabetes mellitus due to underlying condition, with fat layer exposed Medical History (Updated 03/12/24 @ 11:08 by Teressa Lawton PA-C) Carotid artery stenosis 50-69% TRAVIS 2017 Bifascicular block Difficult intravenous access History of blood transfusion ivelisse-operatively, most recently 10/2023 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 s/p aortic valve replacement Arthritis BPH (benign prostatic hyperplasia) GERD (gastroesophageal reflux disease) controlled, stable per pt History of anemia Hx of myocardial infarction 1995>failed heart stent placement @ [facility] Post traumatic stress disorder Peripheral neuropathy Hyperlipidemia Diabetes mellitus, type 2 IDDM CAD (coronary artery disease) 1 vessel bypass > 5 years ago Peripheral vascular disease Hypertension controlled, stable per pt Surgical History (Updated 03/11/24 @ 15:24 by Teressa Lawton PA-C) Aortic valve replaced History of anesthesia reaction 2017 [facility] [place] Hernia surgery>aspirated ( states has PTSD with anesthesia now since experience) History of hammertoe correction right 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 History of revision of total knee arthroplasty left>with spacer (active infection) History of total knee replacement left 2010 History of colonoscopy History of cholecystectomy 10/2023 [facility] History of cardiac cath before 2018/no stents Mitral valve replaced 2018 [facility] Hx of CABG May 2019; one vessel bypassed [facility] Infection of knee I&D Hx of hernia repair History of femoropopliteal bypass 2016 Family History Father Cirrhosis Mother Diabetes DM Type II Heart disease Social History Smoking Status: Current some day smoker (occasional cigars) Tobacco Type: Cigarettes and Cigars Smoking End Date: quit cig smoking "years ago", still smokes cigars a couple times a week; Second Hand Exposure: Yes (as a child); Do You Dip or Chew Tobacco: No; Hx Alcohol Use: Yes Alcohol type: beer and wine Preferred Language: Icelandic Communication Ability: Effective Antenna Specialist Required: No Beliefs That Will Affect Care: None marital status: Current Living Situation: Spouse Feels Safe at Home: Yes Safety Concerns: Feels Safe At This Time Assistive Devices: Glasses, Hearing Aid - Bilateral, Walker and Wheelchair Assistive Devices Comment: glasses prn driving/reading
--- NOTE | 2024-03-16 08:36 | History & Physical Bridge Note ---
Date of Service March 16, 2024 History & Physical Bridge Note I have examined the patient, reviewed the History & Physical and in the interval since the performance of the History & Physical I have noted the following changes of clinical significance: no changes noted
--- OUTSIDE RECORDS SUMMARY | 2024-03-16 08:42 | External Medical Summary | Continuity of Care Document ---
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 Name Role Phone Liliana Georges Primary Care Physician [phone] Encounter [facility] [id number] Date(s): 03/11/24 - 03/11/24 [facility] [address], [address] [place] [address] [phone] Encounter Diagnosis Infection of left knee(Discharge Diagnosis) - 03/11/24 Discharge Disposition: Home or Self Care Attending Physician: MD Bautista Eugene J Referring Physician: MD Vladimir, Vito Govea Allergies, Adverse Reactions, Alerts Substance Criticality Severity Reaction Reaction Severity Status simvastatin Diarrhea Active Mevacor Diarrhea Active Assessment and Plan Extracted from: Title:Clinical Document Author:RENO Hanna Lynn Date:03/11/24 [facility] OUTPATIENT NOTE Name: ALEN DOYLE Patient Number: [id number] : 1945 Date of Service: 03/11/2024 Chief Complaint: _New patient consultation for left leg knee infection HPI: _Mr. Doyle is an elderly male who presents to Dr. Bautista's vascular surgery clinic today due to a severe and chronic left knee infection, and to discuss above-knee amputation. According to the patient and his , the patient had a left total knee arthroplasty performed around 2009, and did well until 2018, at which time his knee prosthesis became infected. He has since undergone multiple attempts to get rid of this infection, including washouts, injections of antibiotics, removal of hardware and placement of antibiotic spacer, all to no avail. He is currently on suppressive antibiotics by taking 1000 mg cefadroxil twice daily. Despite this, he developed a superficial abscess over the knee for which she was seen at the [facility] emergency department a few weeks ago, and underwent incision and drainage. This area continues to drain yellowish fluid, but patient has also developed a new area of a swollen spot with a black scab over the top medial to this. He denies any fevers chills nausea vomiting chest pain, shortness of breath, abdominal pain, rest pain, foot discoloration. He does state that he has considerable pain in his left knee and is unable to straighten his leg out due to the severe pain. He was previously seen multiple internet security specialist, as well as his infectious disease specialist, all of whom state that there are no further surgical options to eradicate the infection, and that they suggested he consider above-knee amputation. Patient states that he is willing to undergo the above-knee amputation, as he is very frustrated with the length of his current illness and being unable to do all the things he wants to do, as well as the severe pain he suffers every day. Review of systems: A total of 14 systems were reviewed and are negative aside from what is related in his HPI Current Home Meds: (Last Updated 03/11 08:34) acetaminophen (Tylenol Extra Strength 500 mg oral tablet) 1,000 mg PO q6h PRN: as needed for pain aspirin (aspirin 81 mg oral delayed release tablet) 81 mg PO Daily bifidobacterium-lactobacillus (Probiotic Formula) bumetanide (bumetanide 1 mg oral tablet) TAKE ONE TABLET BY MOUTH EVERY DAY carvedilol (carvedilol 6.25 mg oral tablet) TAKE ONE TABLET BY MOUTH TWICE A DAY WITH FOOD cefadroxil (cefadroxil 500 mg oral capsule) 1,000 mg PO q12h cholecalciferol (Vitamin D3 50 mcg (2000 intl units) oral tablet) clopidogrel (clopidogrel 75 mg oral tablet) 75 mg PO Daily cyanocobalamin (Vitamin B12 1000 mcg oral tablet) 1,000 mcg PO Daily eplerenone (eplerenone 25 mg oral tablet) 25 mg PO Daily famotidine (famotidine 10 mg oral tablet) 10 mg PO Daily ferrous sulfate (FeroSul 325 mg (65 mg elemental iron) oral tablet) 325 mg PO Daily insulin glargine (insulin glargine 100 units/mL subcutaneous solution) 20 unit subQ qhs oxyCODONE (oxyCODONE 10 mg oral tablet, extended release) 10 mg PO q12h oxyCODONE (oxyCODONE 5 mg oral tablet) TAKE ONE TABLET BY MOUTH EVERY 6 HOURS NEEDED FOR PAIN SCALE 4-10) rosuvastatin (rosuvastatin 40 mg oral tablet) 40 mg PO Daily tamsulosin (tamsulosin 0.4 mg oral capsule) 0.4 mg PO Daily Allergies and Sensitivities: simvastatin(Diarrhea) Mevacor(Diarrhea) Past Medical History: Problems: Tobacco user Infection of left knee Type 2 diabetes mellitus Anemia GERD Peripheral arterial disease Hyperlipidemia Aortic stenosis Hypertension COPD Arthritis Surgical history: Positive for aortic valve placement, left leg femoral to popliteal artery bypass. Cardiac catheterization, colonoscopy, cholecystectomy, hernia repair, left total knee replacement, removal of the left knee hardware placement of antibiotic spacer, multiple washouts of the left knee Family history: Essentially negative Social history: Patient smoked 1 pack a day for about 30 years. He denies alcohol or illicit drug use. He is and lives with his . OBJECTIVE Vitals: Last Updated 03/11/24 08:43 Date Temp BP Location Pulse RR SpO2 Pain 03/11/24 116/66 Right Arm 03/11/24 100/64 Left Arm 70 94 0 Vital Signs are the last 3 documented. No Orthostatic Data Available No Height/Weight Data Available Physical Exam Constitutional: In general patient is a chronically ill appearing elderly male in no distress. He is alert and oriented vital deficits. His carotids not measured a bruit. His heart is regular, his lungs are decreased but clear. His abdomen soft nontender with marked bowel sounds in all 4 quadrants. His brachial and radial pulses are +3. His right femoral pulses +3. His left, pulses +3. Distal pulses are nonpalpable, but his bilateral DP pulses are easily dopplerable, PT pulses are faintly dopplerable. Right foot demonstrates surgical removal of all toes. Left medial mid leg demonstrates a long incision which is well-healed, appears to be the location of his femoropopliteal bypass, likely with vein conduit. His left knee is swollen, with tight skin, exquisitely tender, unable to straighten. Additionally he has an open area in the anterior portion which is draining serosanguineous and bloody drainage. His medial knee demonstrates an area of fluctuance about 2 cm in diameter, with a black eschar on the top. There is no drainage from this at this point. ASSESSMENT: _ PLAN: _ 1 ) _left knee infection Patient is a history of a left total knee arthroplasty infection, and subsequent removal of hardware with antibiotic spacer placement. He is on suppressive antibiotics, however, he has now began to develop cutaneous abscesses. One has been drained in the emergency department, and he now appears to have another 1 medial to that location. He also has severe chronic pain and is looking for relief of this. Patient was also seen by Dr. Bautista in the office today. After review of his chart information and discussion with the patient and his , we did recommend that patient consider an above-knee amputation in order to eradicate the persistent infection. The procedure risks, including but not limited to bleeding, blood clots, heart attack, , wound infection leading to need for further surgery, benefits and alternatives were discussed with the patient by myself at Dr. Bautista's request. Patient expresses understanding and agreement to proceed. 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 Thank you for letting us participate in the care of this patient. I have personally spent_45__ minutes performing [id number] and mll-[id number]-[id number]-face activities on this date of service.Time does not include separately reported services. Activities Include: x__ review of the medical record _x_ obtaining a history _x_ physical exam/evaluation _x_ review labs _x_ review radiology reports _x_ counseling/educating patient/family/caregiver __ discussion/referral to other healthcare professional _x_ documenting care in the medical record __ independent interpretation of results _x_ communication of results to patient/family/caregiver x__ coordination of care Medications aspirin 81 mg oral delayed release tablet Start: 03/11/24 8:26:00 AM EDT, 1 tab, PO, Daily Start Date: 03/11/24 Status: Ordered bumetanide 1 mg oral tablet TAKE ONE TABLET BY MOUTH EVERY DAY Start Date: 03/11/24 Status: Ordered carvedilol 6.25 mg oral tablet TAKE ONE TABLET BY MOUTH TWICE A DAY WITH FOOD Start Date: 03/11/24 Status: Ordered cefadroxil 500 mg oral capsule Start: 03/11/24 8:26:00 AM EDT, 2 cap, PO, q12h Start Date: 03/11/24 Status: Ordered clopidogrel 75 mg oral tablet Start: 03/11/24 8:26:00 AM EDT, 1 tab, PO, Daily Start Date: 03/11/24 Status: Ordered eplerenone 25 mg oral tablet Start: 03/11/24 8:26:00 AM EDT, 1 tab, PO, Daily Start Date: 03/11/24 Status: Ordered famotidine 10 mg oral tablet Start: 03/11/24 8:26:00 AM EDT, 1 tab, PO, Daily Start Date: 03/11/24 Status: Ordered FeroSul 325 mg (65 mg elemental iron) oral tablet Start: 03/11/24 8:27:00 AM EDT, 1 tab, PO, Daily Start Date: 03/11/24 Status: Ordered insulin glargine 100 units/mL subcutaneous solution Start: 03/11/24 8:27:00 AM EDT, 20 unit =, subQ, qhs Start Date: 03/11/24 Status: Ordered oxyCODONE 10 mg oral tablet, extended release Start: 03/11/24 8:29:00 AM EDT, 1 tab, PO, q12h, Refills: 0 Start Date: 03/11/24 Status: Ordered oxyCODONE 5 mg oral tablet TAKE ONE TABLET BY MOUTH EVERY 6 HOURS NEEDED FOR PAIN SCALE 4-10) Start Date: 03/11/24 Status: Ordered Probiotic Formula Start: 03/11/24 8:29:00 AM EDT Start Date: 03/11/24 Status: Ordered rosuvastatin 40 mg oral tablet Start: 03/11/24 8:29:00 AM EDT, 1 tab, PO, Daily Start Date: 03/11/24 Status: Ordered tamsulosin 0.4 mg oral capsule Start: 03/11/24 8:29:00 AM EDT, 1 cap, PO, Daily Start Date: 03/11/24 Status: Ordered Tylenol Extra Strength 500 mg oral tablet Start: 03/11/24 8:30:00 AM EDT, 2 tab, PO, q6h, PRN: as needed for pain Start Date: 03/11/24 Status: Ordered Vitamin B12 1000 mcg oral tablet Start: 03/11/24 8:30:00 AM EDT, 1 tab, PO, Daily Start Date: 03/11/24 Status: Ordered Vitamin D3 50 mcg (2000 intl units) oral tablet Start: 03/11/24 8:30:00 AM EDT Start Date: 03/11/24 Status: Ordered Mental Status 03/11/24 Barriers to Learning one year None evide nt Mandatory Health Literacy Documentation Yes Health Literacy Communication Barriers N ever Primary Language Barb[place] Problem List Condition Confirmation Course Effective Dates Status Health St atus Informant Infection of left knee Confirmed Active Tobacco user Confirmed Active Diagnosis Diagnosis Type Effective Dates Health Status Cl inical Service Informant Infection of left knee Discharge Diagnosis 03/11/24 Procedures Procedure Date Related Diagnosis Body Site Status Cardiac surgery 1 06/16/19 Complet ed 1? Valve placement bioprosthetic Mosaic Medtronic 25 mm Model [id number] ? if CABG done as well Vital Signs Most recent to oldest [Reference Range]: 1 2 Heart Rate 70 bpm (03/11/24 8:35 AM) Blood Pressure 116/66mmHg (03/11/24 8:43 AM) 100/64mmHg (03/11/24 8:35 AM) Cuff Pulse Pressure 50 mmHg (03/11/24 8:43 AM) 36 mmHg (03/11/24 8:35 AM) BP Location # 1 Right Arm (03/11/24 8:43 AM) Left Arm (03/11/24 8:35 AM) Social History Social History Type Response Tobacco Current every day sm oker, Cigarettes, 1 per day. 30 year(s). Smoking Status Current every day he salena smoker Sex Male Sex Representation Male (finding) [facility] Outpt Note * RENO Hanna Lynn: PERFORM Event Display: [facility]VI Outpt Note Authored Date: [id number] [facility] OUTPATIENT NOTE Name: ALEN DOYLE Patient Number: [id number] : 1945 Date of Service: 03/11/2024 Chief Complaint: _New patient consultation for left leg knee infection HPI: _Mr. Doyle is an elderly male who presents to Dr. Bautista's vascular surgery clinic today due to a severe and chronic left knee infection, and to discuss above-knee amputation. According to the patient and his , the patient had a left total knee arthroplasty performed around 2009, and did well until 2018, at which time his knee prosthesis became infected. He has since undergone multiple attempts to get rid of this infection, including washouts, injections of antibiotics, removal of hardware and placement of antibiotic spacer, all to no avail. He is currently on suppressive antibiotics by taking 1000 mg cefadroxil twice daily. Despite this, he developed a superficial abscess over the knee for which she was seen at the [facility] emergency department a few weeksago, and underwent incision and drainage. This area continues to drain yellowish fluid, but kendra also developed a new area of a swollen spot with a black scab over the top medial to this. He denies any fevers chills nausea vomiting chest pain, shortness of breath, abdominal pain, rest pain, foot discoloration. He does state that he has considerable pain in his left knee and is unable to straighten his leg out due to the severe pain. He was previously seen multiple internet security specialist, as well as his infectious disease specialist, all of whom state that there are no further surgical options to eradicate the infection, and that they suggested he consider above-knee amputation. Patient states that he is willing to undergo the above-knee amputation, as he is very frustrated with the length of his current illness and being unable to do all the things he wants to do, as well as the severe pain he suffers every day. Review of systems: A total of 14 systems were reviewed and are negative aside from what is related in his HPI Current Home Meds: (Last Updated 03/11 08:34) acetaminophen (Tylenol Extra Strength 500 mg oral tablet) 1,000 mg PO q6h PRN: as needed for pain aspirin (aspirin 81 mg oral delayed release tablet) 81 mg PO Daily bifidobacterium-lactobacillus (Probiotic Formula) bumetanide (bumetanide 1 mg oral tablet) TAKE ONE TABLET BY MOUTH EVERY DAY carvedilol (carvedilol 6.25 mg oral tablet) TAKE ONE TABLET BY MOUTH TWICE A DAY WITH FOOD cefadroxil (cefadroxil 500 mg oral capsule) 1,000 mg PO q12h cholecalciferol (Vitamin D3 50 mcg (2000 intl units) oral tablet) clopidogrel (clopidogrel 75 mg oral tablet) 75 mg PO Daily cyanocobalamin (Vitamin B12 1000 mcg oral tablet) 1,000 mcg PO Daily eplerenone (eplerenone 25 mg oral tablet) 25 mg PO Daily famotidine (famotidine 10 mg oral tablet) 10 mg PO Daily ferrous sulfate (FeroSul 325 mg (65 mg elemental iron) oral tablet) 325 mg PO Daily insulin glargine (insulin glargine 100 units/mL subcutaneous solution) 20 unit subQ qhs oxyCODONE (oxyCODONE 10 mg oral tablet, extended release) 10 mg PO q12h oxyCODONE (oxyCODONE 5 mg oral tablet) TAKE ONE TABLET BY MOUTH EVERY 6 HOURS NEEDED FOR PAIN SCALE 4-10) rosuvastatin (rosuvastatin 40 mg oral tablet) 40 mg PO Daily tamsulosin (tamsulosin 0.4 mg oral capsule) 0.4 mg PO Daily Allergies and Sensitivities: simvastatin(Diarrhea) Mevacor(Diarrhea) Past Medical History: Problems: Tobacco user Infection of left knee Type 2 diabetes mellitus Anemia GERD Peripheral arterial disease Hyperlipidemia Aortic stenosis Hypertension COPD Arthritis Surgical history: Positive for aortic valve placement, left leg femoral to popliteal artery bypass.Cardiac catheterization, colonoscopy, cholecystectomy, hernia repair, left total knee replacement, removal of the left knee hardware placement of antibiotic spacer, multiple washouts of the left knee Family history: Essentially negative Social history: Patient smoked 1 pack a day for about 30 years. He denies alcohol or illicit drug use. He is and lives with his . OBJECTIVE Vitals: Last Updated 03/11/24 08:43 Date Temp BP Location Pulse RR SpO2 Pain 03/11/24 116/66 Right Arm 03/11/24 100/64 Left Arm 70 94 0 Vital Signs are the last 3 documented. No Orthostatic Data Available No Height/Weight Data Available Physical Exam Constitutional: In general patient is a chronically ill appearing elderly male in no distress. He is alert and oriented vital deficits. His carotids not measured a bruit. His heart is regular, his lungs are decreased but clear. His abdomen soft nontender with marked bowel sounds in all 4 quadrants.His brachial and radial pulses are +3. His right femoral pulses +3. His left, pulses +3. Distal pulses are nonpalpable, but his bilateral DP pulses are easily dopplerable, PT pulses are faintly dopplerable. Right foot demonstrates surgical removal of all toes. Left medial mid leg demonstrates a long incision which is well-healed, appears to be the location of his femoropopliteal bypass, likely with vein conduit. His left knee is swollen, with tight skin, exquisitely tender, unable to straighten. Additionally he has an open area in the anterior portion which is draining serosanguineous and bloody drainage. His medial knee demonstrates an area of fluctuance about 2 cm in diameter, with a black eschar on the top. There is no drainage from this at this point. ASSESSMENT: _ PLAN: _ 1 ) _left knee infection Patient is a history of a left total knee arthroplasty infection, and subsequent removal of hardware with antibiotic spacer placement. He is on suppressive antibiotics, however, he has now began to develop cutaneous abscesses. One has been drained in the emergency department, and he now appears to have another 1 medial to that location. He also has severe chronic pain and is looking for relief ofthis. Patient was also seen by Dr. Bautista in the office today. After review of his chart information and discussion with the patient and his , we did recommend that patient consider an above-kneeamputation in order to eradicate the persistent infection. The procedure risks, including but not li mited to bleeding, blood clots, heart attack, , wound infection leading to need for further surgery, benefits and alternatives were discussed with the patient by myself at Dr. Bautista's request. Patient expresses understanding and agreement to proceed. 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 Thank you for letting us participate in the care of this patient. I have personally spent_45__ minutes performing [id number] and [id number]-cvno-ib-face activities on this date of service.Time does not include separately reported services. Activities Include: x__ review of the medical record _x_ obtaining a history _x_ physical exam/evaluation _x_ review labs _x_ review radiology reports _x_ counseling/educating patient/family/caregiver __ discussion/referral to other healthcare professional _x_ documenting care in the medical record __ independent interpretation of results _x_ communication of results to patient/family/caregiver x__ coordination of care Electronic Signature on File CC: Liliana Georges MD [address] [place] [id number] * CC: Vito Gilbert MD [address] [place] [id number] * Electronically Reviewed/Signed by: Shanna Hanna PA-C Author Signature Dt/Tm:03/11/2024 11:43 AM [facility] [address], [address] [place]. [address] Patient Care team information Care Team Personnel Name: MD Destini, Liliana Jernigan Position: Referring Member Role: Primary Care Provider Address: [address] [place] [address] Name: RENO Hanna Lynn Position: Physician Adult Remedial Education Instructor Exempt - Vasc Surg Member Role: Lifetime Relationship Address: [address] [place] [address]
[2024-03-16] MEDS ORDERED: ROPIVACAINE 0.5% 5 MG/ML 30 ML VIAL ONE (09:07)
[2024-03-16 09:11] LABS: BUN Creatinine Ratio 25.8 (10-20); Calcium 9.6 mg/dl (8.6-10.3); Creatinine Clr Calc Pharmacy 81.8 ml/min; Est GFR (African American) 94.9 ml/min; Est GFR (Non-African American) 81.9 ml/min; Potassium 4.4 mmol/L (3.5-5.1)
[2024-03-16] MEDS ORDERED: ONDANSETRON INJ 2 MG/ML 2 ML VIAL IV PRN (09:17)
[2024-03-16] MEDS ORDERED: ATROPINE SULFATE 0.1 MG/ML 10ML SYR IV PRN (09:17)
[2024-03-16] MEDS ORDERED: ePHEDrine sulfate 50 MG/ML AMP IV PRN (09:17)
[2024-03-16] MEDS: SODIUM CHLORIDE 0.9% 1,000 ML IV SCH (09:19)
[2024-03-16] MEDS: ceFAZolin 2000MG 2,000 MG/15 ML SYR IV SCH (09:53)
[2024-03-16] MEDS ORDERED: GLYCOPYRROLATE 0.2 MG/ML VIAL ONE (10:07)
[2024-03-16] MEDS ORDERED: fentaNYL citrate PF 100 MCG/2 ML VIAL ONE ×2 (10:29→11:05)
[2024-03-16] MEDS: SURGICEL ABSORB HEMOSTAT 2IN X 14IN TOP ONE (11:00)
--- NOTE | 2024-03-16 11:37 | Operative Report ---
Post Operative Report Pre & Post Diagnosis Operation Date: 03/16/24 09:50 Pre-Op Diagnosis: Left knee Pyogenic Arthritis Post-Op Diagnosis: Left knee Pyogenic Arthritis I identified the patient and participated in the time-out.: Yes Procedure Operation Date: 03/16/24 09:50 Actual Procedures p Left Lower Extremity Above the Knee Amputation(Left) - Jesus Bautista MD Surgeon Jesus Bautista MD Harvesting Manager Myrna Gonsalves MD; Shanna Hnana PA-C Estimated Blood Loss 200 Findings See Below There was significant edema of the left thigh soft tissues but no areas of purulence visualized. The left above knee amputation stump appeared well vascularized and hemostatic at the end of the procedure. 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 Patient had a prior left total knee arthroplasty in 2010 and did well until 2018, at which time the prosthetic knee became infected. Since then, he has had chronic infection of the left knee with multiple interventions, including washouts, injections of antibiotics, partial removal of hardware and placement of antibiotic spacers. Patient has also been on chronic antibiotics. However, he continues to suffer from the chronic infection and severe pain. He presented to our office for evaluation and discussion of an above knee amputation on the left lower extremity. After discussions of risks versus benefits, patient consented to the procedure. Description of Procedure The patient was brought into the operating room and placed on the operating table in the supine position. Lines were placed by the anesthesia team and after adequate induction of anesthesia, the patient was intubated. A Mack catheter was placed and the left lower extremity was circumferentially prepped and draped in the usual sterile fashion. A timeout was performed confirming the patient's name, date of and procedure to be performed including laterality. We measured about 12cm proximal to the left knee and we marked our intended incision sites with an anterior and posterior flap configuration. An incision was made along these marked lines and continued through the subcutaneous tissue into the fascia circumferentially using electrocautery. The muscles in the anterior compartment were divided down to the femur using electrocautery, ensuring adequate hemostasis as we went through the layers. The femur was mobilized and a periosteal elevator used to clean off any remaining tissue off of the bone at the site where we intended to divide the bone. A Gigli saw was used to divide the femur, taking care not to injure any of the surrounding tissue and femoral vessels posteromedially. The superficial femoral artery and femoral vein were then identified and clamped individually. The muscles of the posterior and medial compartment were then divided using an amputation knife to complete the amputation of the posterior flap. We then turned back our attention to the femoral vessels. These were divided and suture ligated using 2-0 silk stitches. The sciatic nerve was also identified, divided and suture ligated with 2-0 Vicryl. It was then allowed to retract. We then removed any areas of excess soft tissue in our flaps using electrocautery. The edges of the anterior muscles were configured to be at the level of the femur and the posterior flap muscles to be about 2 fingerbreadths distal to the femur. Any pulsatile bleeding sites on the muscle bed were controlled with a combination of electrocautery and 2-0 silk stitches. Hemostasis was obtained with gentle manual pressure. The rough edges of the bone were smoothed using a bone file. We then noted that the femur was too long for the anterior flap and about 1-2cm of additional bone were removed with the Gigli saw. The bone edges were found to be smooth. The marrow was packed with Surgicel and noted to be hemostatic after removal of the Surgicel. We irrigated the incision copiously with saline solution. After confirming adequate hemostasis, the anterior and posterior fascias were reapproximated to each other using interrupted 2-0 Vicryl sutures. Interrupted 3-0 Vicryl sutures were used in 3 areas to approximate soft tissue between the skin and the fascia to allow adequate closure of the skin. The skin edges were approximated and the incision closed using chema. A sterile, dry dressing was placed over the incision site. The patient was transferred to the recovery room in stable condition. Patient tolerated the procedure well. All counts were correct at the end of the procedure. Dr Bautista was present and scrubbed for the entirety of the procedure. I attest to the content of the Intraoperative Record and any orders documented therein. Any exceptions are noted below.
--- NOTE | 2024-03-16 11:45 | Post Operative Brief Note ---
Immediate Post Op Note Date of Surgery March 16, 2024 Pre & Post Diagnosis Operation Date: 03/16/24 09:50 Pre-Op Diagnosis: Left knee Pyogenic Arthritis Post-Op Diagnosis: Left knee Pyogenic Arthritis I identified the patient and participated in the time-out.: Yes Procedure Operation Date: 03/16/24 09:50 Actual Procedures p Left Lower Extremity Above the Knee Amputation(Left) - Jesus Bautista MD Surgeon Jesus Bautista MD Cardiopulmonary Technologist Myrna Gonsalves MD; Shanna Hanna PA-C Estimated Blood Loss 200 Findings Consistent with Post-Op Diagnosis Drains Mack Catheter Anesthesia Type General Complications none Disposition Accompanied Patient To Recovery: No Disposition: Recovery Room
[2024-03-16] MEDS: fentaNYL citrate PF 100 MCG/2 ML VIAL IV PRN (12:09)
--- NOTE | 2024-03-16 13:02 | Anesthesiology Progress Note ---
Date of Service March 16, 2024 Anesthesia Post Procedure Vital Signs Vital Signs: Temp Pulse Pulse Resp BP BP Pulse Ox 03/16/24 12:40 97.7 F 65 13 103/60 92 03/16/24 12:30 68 16 120/61 96 03/16/24 12:20 69 20 116/64 93 03/16/24 12:10 71 18 111/60 93 03/16/24 12:00 74 18 114/62 92 03/16/24 11:50 73 12 123/69 99 03/16/24 11:41 98.6 F 72 22 105/58 L 97 03/16/24 09:00 98.6 F 66 20 102/57 L 123/60 97 O2 Del Method O2 Flow Rate 03/16/24 12:40 Room Air 0 03/16/24 12:30 Room Air 0 03/16/24 12:20 Room Air 0 03/16/24 12:10 Room Air 0 03/16/24 12:00 Room Air 0 03/16/24 11:50 Oxymask 6 03/16/24 11:41 Oxymask 6 03/16/24 09:00 Room Air Pain Intensity Left Knee: Pain Intensity: 4 Left Upper Leg: Pain Intensity: 4 Transfer of Care Handoff Completed per policy Notes Mental Status: alert / awake / arousable and participated in evaluation Patient Amnestic to Procedure: Yes Nausea / Vomiting: adequately controlled Pain: adequately controlled Airway Patency, RR, SpO2: stable & adequate BP & HR: stable & adequate Hydration State: stable & adequate Anesthetic Complications: no major complications apparent and Pt Satisfied with anesthetic care
[2024-03-16] MEDS: D5W AND 1/2NSS 1,000 ML IV SCH (13:43)
[2024-03-16] MEDS: oxyCODONE HCL IR 5 MG TAB (IMMEDIATE RELEASE) PO PRN (13:46)
[2024-03-16] MEDS ORDERED: GLUCAGON FOR INJ 1 MG VIAL IM PRN (14:15)
[2024-03-16] MEDS ORDERED: DEXTROSE 50% 50 ML SYRINGE IV PRN (14:15)
[2024-03-16] MEDS ORDERED: CARBOHYDRATES FOR HYPOGLYCEMIA PO PRN (14:15)
[2024-03-16] MEDS ORDERED: GLUCOSE 10 TAB/TUBE PO PRN (14:15)
[2024-03-16] MEDS ORDERED: GLUCOSE 40% GEL 15 GM TUBE PO PRN (14:15)
[2024-03-16] MEDS: HYDROmorphone INJ 0.5 MG/0.5 ML SYR IV PRN (15:37)
[2024-03-16] MEDS: ENOXAPARIN INJ 40 MG/0.4 ML SYR SQ SCH (17:45)
[2024-03-16] MEDS: carvediloL 6.25 MG TAB PO SCH (17:45)
[2024-03-16] MEDS: ROSUVASTATIN CALCIUM 20 MG TAB PO SCH (20:07)
[2024-03-16] MEDS: TAMSULOSIN HCL 0.4 MG CAP PO SCH (20:07)
[2024-03-16] MEDS: LANTUS PER UNIT CHARGE SQ SCH (20:21)
[2024-03-17 07:36] LABS: Basophils # (auto) 0.02 K/uL (0.00-0.20); Basophils % (auto) 0.3 %; Eosinophils # (auto) 0.11 K/uL (0.00-0.50); Eosinophils % (auto) 1.7 %; Hematocrit (blood only) 29.3 % (42.0-52.0); Hemoglobin 9.4 g/dl (14.0-18.0); Immature Granulocytes # (auto) 0.04 K/uL (0.01-0.20); Immature Granulocytes % (auto) 0.6 %; Lymphocytes % (auto) 12.5 %; Mean Corpuscular Hemoglobin 31.5 pg (25.0-34.0); Mean Corpuscular Hgb Conc 32.1 g/dL (32.0-36.0); Mean Corpuscular Volume 98.3 fL (80.0-100.0); Mean Platelet Volume 10.1 fL (9.4-12.4); Monocytes # (auto) 0.76 K/uL (0.11-0.59); Monocytes % (auto) 11.8 %; Neutrophils # (auto) 4.69 K/uL (1.40-6.50); Neutrophils % (auto) 73.1 %; Platelet Count 194 K/uL (130-400); RDW Coefficient of Variation 14.1 % (11.5-14.5); RDW Standard Deviation 49.9 fL (36.4-46.3); Red Blood Count 2.98 M/uL (4.70-6.10); White Blood Count 6.42 K/ul (4.8-10.8)
[2024-03-17] MEDS: CYANOCOBALAMIN (B-12) 500 MCG TABLET PO SCH (09:25)
[2024-03-17] MEDS: FERROUS SULFATE 325 MG TAB PO SCH (09:25)
[2024-03-17] MEDS: FAMOTIDINE 10 MG TABLET PO SCH (09:25)
[2024-03-17] MEDS: CLOPIDOGREL BISULFATE 75 MG TAB PO SCH (09:25)
[2024-03-17] MEDS: CHOLECALCIFEROL 25 MCG (1000 UNITS) TAB PO SCH (09:25)
[2024-03-17] MEDS: BUMETANIDE 1 MG TAB PO SCH (09:25)
[2024-03-17] MEDS: SACCHAROMYCES BOULARDII 250 MG CAP PO SCH (09:25)
[2024-03-17] MEDS: ASPIRIN 81 MG ECTAB PO SCH (09:25)
--- NOTE | 2024-03-17 11:09 | Surgery Progress Note ---
Date of Service March 17, 2024 Assessment & Plan (1) S/P above knee amputation: Plan: Pt stable after LLE AKA, pain currently not relieved, but pt does not appear terribly uncomfortable. Discussed with Dr Garner, will increase Dilaudid to 1mg Q2hr. Advised pt that he will need to be on oral pain medication only before d/c to rehab. Admission and Anticipated Discharge Date Admission Date: March 16, 2024 Subjective 79yo m POD #1 after LLE AKA d/t chronic infection of L knee, seen in f/u today. Pt states pain medication regimen is not relieving his pain, still rating 7-8/10 after his IV dilaudid. He is having difficulty getting any rest d/t pain. Pt denies any other new complaints. Review of Systems Review of Systems: All systems reviewed & are unremarkable except as noted in HPI & below Physical Exam Constitutional: WD/WN, vitals as above cooperative; not in distress Respiratory: normal respiratory effort, lungs clear to auscultation Auscultation: + diminished lung sounds Cardiovascular: Rate/Rhythm: regular rate and regular rhythm Vessels: femoral pulses present; + abnormal peripheral pulses LLE AKA Gastrointestinal (Abdomen): Inspection/Auscultation: abdomen normal to inspection and normal bowel sounds Percussion/Palpation: abdomen soft; abdomen nontender Musculoskeletal: Extremities: + amputation noted (LLE AKA) Skin: no rashes, warm and dry Dressing on LLE AKA site not removed yet. No severe edema or erythema beyond dressing. Neurologic: moves all extremities and awake; no focal motor deficits and not confused Psychiatric: A+Ox3, euthymic affect Results & Data Vital Signs (Past 12 Hours) Vital Signs Temp Pulse Resp BP Pulse Ox O2 Del Method 03/17/24 07:27 36.9 C 81 18 114/68 93 Room Air 03/17/24 03:28 37.1 C 82 18 99/57 L 92 Room Air
[2024-03-17] MEDS: HYDROmorphone INJ 0.5 MG/0.5 ML SYR IV PRN (11:12)
--- NOTE | 2024-03-18 14:56 | Surgery Progress Note ---
Date of Service March 18, 2024 Assessment & Plan (1) S/P above knee amputation: Plan: Pt doing well POD #2 after LLE AKA. Decreased pain med requirements, but occasionally still needing IV dialudid. d/c to rehab after no IV pain meds required. Admission and Anticipated Discharge Date Admission Date: March 16, 2024 Subjective 79yo m POD #2 after LLE AKA d/t chronic infection of L knee, seen in f/u today. Pt with improved pain control, not requiring IV pain meds as often as yesterday. No other new complaints. Review of Systems Review of Systems: All systems reviewed & are unremarkable except as noted in HPI & below Physical Exam Constitutional: WD/WN, vitals as above cooperative; not in distress Respiratory: normal respiratory effort, lungs clear to auscultation Auscultation: + diminished lung sounds Cardiovascular: Rate/Rhythm: regular rate and regular rhythm Vessels: femoral pulses present; + abnormal peripheral pulses Gastrointestinal (Abdomen): Inspection/Auscultation: abdomen normal to inspection and normal bowel sounds Percussion/Palpation: abdomen soft; abdomen nontender Musculoskeletal: Extremities: + amputation noted (LLE AKA) Skin: no rashes, warm and dry Neurologic: moves all extremities and awake; no focal motor deficits and not confused Psychiatric: A+Ox3, euthymic affect Results & Data Vital Signs (Past 12 Hours) Vital Signs Temp Pulse Resp BP Pulse Ox O2 Del Method 03/18/24 08:00 Room Air 03/18/24 07:31 37.0 C 77 16 118/67 94 Room Air
[2024-03-18] MEDS: cephALEXin 500 MG CAP PO SCH (17:16)
[2024-03-19 07:57] VITALS: RESP 16
[2024-03-19] MEDS: oxyCODONE HCL 10 MG TABCR (OxyCONTIN) PO SCH (08:41)
[2024-03-19] MEDS: oxyCODONE HCL IR 5 MG TAB (IMMEDIATE RELEASE) PO PRN (12:39)
--- NOTE | 2024-03-19 15:50 | Surgery Progress Note ---
Date of Service March 19, 2024 Assessment & Plan (1) S/P above knee amputation: Plan: Pt doing well POD #3 after LLE AKA. Doing well. Ready for rehab. Can D\C when bed available Admission and Anticipated Discharge Date Admission Date: March 16, 2024 Subjective 79yo m POD #2 after LLE AKA d/t chronic infection of L knee. Was up with walker today. Pain better controlled Physical Exam Constitutional: WD/WN, vitals as above Skin: + incision (incision dry and clean, stum p viable) Results & Data Vital Signs (Past 12 Hours) Vital Signs Temp Pulse Resp BP Pulse Ox O2 Del Method 03/19/24 15:30 36.9 C 74 16 123/71 94 Room Air 03/19/24 09:31 77 127/97 03/19/24 07:57 36.8 C 72 16 143/79 H 94 Room Air
[2024-03-20 07:47] VITALS: BP 116/71; PULSE 67; TEMP 98.1; O2SAT 94
--- NOTE | 2024-03-20 09:41 | Surgery Progress Note ---
Date of Service March 20, 2024 Assessment & Plan (1) S/P above knee amputation: Plan: Pt doing well POD #4 after LLE AKA. Doing well. Ready for rehab. Can D\C when bed available Admission and Anticipated Discharge Date Admission Date: March 16, 2024 Subjective 79yo m POD #4 after LLE AKA d/t chronic infection of L knee. Was up with walker today. Pain better controlled. Review of Systems Review of Systems: All systems reviewed & are unremarkable except as noted in HPI & below Physical Exam Constitutional: WD/WN, vitals as above cooperative; not in distress Respiratory: normal respiratory effort, lungs clear to auscultation Auscultation: + diminished lung sounds Cardiovascular: Rate/Rhythm: regular rate and regular rhythm Vessels: femoral pulses present; + abnormal peripheral pulses Gastrointestinal (Abdomen): Inspection/Auscultation: abdomen normal to inspection and normal bowel sounds Percussion/Palpation: abdomen soft; abdomen nontender Musculoskeletal: Extremities: + amputation noted (LLE AKA) Skin: no rashes, warm and dry Neurologic: moves all extremities and awake; no focal motor deficits and not confused Psychiatric: A+Ox3, euthymic affect Results & Data Vital Signs (Past 12 Hours) Vital Signs Temp Pulse Resp BP Pulse Ox O2 Del Method 03/20/24 07:46 36.7 C 67 16 116/71 94 Room Air
== END 2024-03-20 13:37 | DRG 475 ==
LOC: ASU 08:12 → 3N 09:34